=== PATIENT | female | born 1945 | race Caucasian/White ===

== ENCOUNTER → 2016-11-27 | Outpatient (CLI) | payer OTHER ==
[~2016-11-27] MED LIST: CALC600T9 PO; CHOL1CAP57 PO; OMEGCAP2 PO; PRED1SUS3; VNTHFA/IN INH
--- NOTE | 2016-11-27 07:46 | DIAGNOSTIC IMAGING REPORT ---
CHEST 2 VIEWS ROUTINE CLINICAL HISTORY: R06.02 SOB (shortness of breath) on [id number] COMPARISON STUDY: No previous studies for comparison. FINDINGS: The bones soft tissues and hemidiaphragms are normal. The cardiomediastinal silhouette is normal. The lungs are clear. The pulmonary vasculature is normal. IMPRESSION: Negative chest. Electronically signed by: Benja Lund M.D. 11/27/2016 7:44 AM Dictated Date/Time: 11/27/2016 7:43 AM
[2016-11-27 09:38] LABS: BASO % 1.2 %; BASO ABS # 0.07 K/uL (0-0.2); COMPLETE YES; EOS % 7.2 %; HEMATOCRIT 42.8 % (37-47); IG% 0.2 %; LYMPH % 33.9 %; LYMPH ABS # 1.99 K/uL (1.2-3.4); MEAN CELL VOLUME 96.6 fL (80-100); MEAN CORPUSCULAR HEMOGLOBIN 30.5 pg (25-34); MEAN CORPUSCULAR HGB CONC 31.5 g/dl (32-36); MEAN PLATELET VOLUME 9.8 fL (7.4-10.4); MONO % 5.6 %; NEUT % 51.9 %; PLATELET COUNT 224 K/uL (130-400); RED BLOOD COUNT 4.43 M/uL (4.2-5.4); WHITE BLOOD COUNT 5.87 K/uL (4.8-10.8)
[2016-11-27 09:55] LABS: CALCIUM 8.8 mg/dl (8.5-10.1)
[2016-11-27 09:56] LABS: ALT/SGPT 22 U/L (12-78); BLOOD UREA NITROGEN 23 mg/dl (7-18); BUN/CREATININE RATIO 26.4 (10-20); CARBON DIOXIDE 26 mmol/L (21-32); CHLORIDE 108 mmol/L (98-107); CHOLESTEROL 227 mg/dl (0-200); CREATININE 0.87 mg/dl (0.60-1.20); GLUCOSE 82 mg/dl (70-99); SODIUM 143 mmol/L (136-145); TRIGLYCERIDES 54 mg/dl (0-150); VERY LOW DENSITY LIPOPROT CALC 11 mg/dl
[2016-11-27 09:59] LABS: ALB/GLOB RATIO 1.1 (0.9-2); ALKALINE PHOSPHATASE 57 U/L (45-117); AST/SGOT 18 U/L (15-37); CHOLESTEROL/HDL RATIO 2.6; HDL CHOLESTEROL 88 mg/dl; LDL CHOLESTEROL CALCULATED 128 mg/dl
== END | disposition home or self-care (01) ==
LOC: C.RAD 07:16
PROVIDERS: ATTEND Nurse Practitioner Adult Health
DX: R06.02 Shortness of breath (principal); R07.89 Other chest pain

== ENCOUNTER → 2017-05-03 | Day surgery (SDC) | payer OTHER ==
[2017-04-20 13:09] VITALS: Ht 161.3 cm; Wt 59.5 kg
[~2017-05-03] VITALS: Ht 161.3 cm; Wt 59.5 kg
[~2017-05-03] MED LIST changes: +ATROPINE SULFATE 0.1 MG/ML 5ML SYR IV PRN; +EpHEDrine SULFATE INJ 50 MG/ML AMP IV PRN; -PRED1SUS3; +PROPOFOL IV EMULSION 10 MG/ML 20 ML VIAL IV ONE; +SODIUM CHLORIDE 0.9% 500ML 500 ML IV ONE
--- NOTE | 2017-05-03 09:54 | Endo History and Physical ---
History & Physical Date of Service: May 03, 2017. Chief Complaint: screening Referring Physician: BERTRAND Juarez III History of Present Illness 71 yo CF who presents for screening colonoscopy. Past Medical History Asthma Past Surgical History Hx Cardiac Surgery: No Hx Internal Defibrillator: No Hx Pacemaker: No Hx Abdominal Surgery: Yes (D&C) Hx of Implantable Prosthesis: No Hx Post-Op Nausea and Vomiting: No Hx Cancer Surgery: No Hx Thoracic Surgery: No Hx Orthopedic: Yes (LT/RT MENISCUS REPAIR) Hx Urinary Tract Surgery: No Family History Colon CA, Polyp Social History Smoking Status: Never Smoker Hx Substance Use: No Hx Alcohol Use: No Allergies Coded Allergies: NO KNOWN DRUG ALLERGIES (Verified Allergy, Unknown, ., 04/20/17) Nickel (Verified Adverse Reaction, Unknown, SKIN IRRITATION, 04/20/17) Current Medications Reported Home Medications Medications Dose Route/Sig Max Daily Dose Days Date Category Ventolin Hfa (Albuterol) 200 Puffs/95986 Mcg Aers 2-4 Puffs INH Q6H PRN 04/20/17 Reported Fish Oil ([place]-3 Fatty Acids) 1 Cap Cap 2 Cap PO QAM 04/20/17 Reported Calcium + D (Calcium Carbonate-Vitamin D) 1 Tab Tab 1 Tab PO QAM 05/21/15 Reported Vitamin D3 (Cholecalciferol) 1,000 Unit Cap 1,000 Intunit PO QAM 05/21/15 Reported Vital Signs Weight (Kilograms): 59.55 Height (Feet): 5 Height (Inches): 3.5 Date Time Temp Pulse Resp B/P (MAP) Pulse Ox O2 Delivery O2 Flow Rate FiO2 05/03/17 09:51 36.5 69 16 119/64 (82) 98 Room Air Physical Exam General Appearance: WD/WN, no apparent distress Respiratory/Chest: Auscultation: breath sounds normal Cardiovascular: Heart Auscultation: RRR Abdomen: Bowel Sounds: normal Inspection & Palpation: soft, non-distended, no tenderness, guarding & rebound Assessment and Plan Assessment: 71 yo CF who presents for screening colonoscopy. Plan: Proceed with colonoscopy.
--- NOTE | 2017-05-03 10:58 | Discharge Instructions ---
Endoscopy Patient Instructions Date / Procedure(s) Performed May 03, 2017. Colonoscopy Allergy Information Coded Allergies: NO KNOWN DRUG ALLERGIES (Verified Allergy, Unknown, ., 04/20/17) Nickel (Verified Adverse Reaction, Unknown, SKIN IRRITATION, 04/20/17) Discharge Date / Findings May 03, 2017. Internal hemorrhoids Medication Instructions Stopped Medication(s): last dose all meds on Wednesday OK to resume all medications today as prescribed Reported Home Medications Medications Dose Route/Sig Max Daily Dose Days Date Category Ventolin Hfa (Albuterol) 200 Puffs/78052 Mcg Aers 2-4 Puffs INH Q6H PRN 04/20/17 Reported Fish Oil ([place]-3 Fatty Acids) 1 Cap Cap 2 Cap PO QAM 04/20/17 Reported Calcium + D (Calcium Carbonate-Vitamin D) 1 Tab Tab 1 Tab PO QAM 05/21/15 Reported Vitamin D3 (Cholecalciferol) 1,000 Unit Cap 1,000 Intunit PO QAM 05/21/15 Reported Provider Instructions Activity Restrictions - No exercising or heavy lifting for 24 hours. - Do not drink alcohol the day of the procedure. - Do not drive a car or operate machinery until the day after the procedure. - Do not make any important decisions or sign important papers in 24 hours after the procedure. Following Day: - Return to full activity which may include returning to work/school. Diet Start your diet with liquids and light foods (jello, soup, juice, toast). Then eat your usual diet if not nauseated. Treatment For Common After Affects For mild abdominal pain, bloating, or excessive gas: - Rest - Eat lightly - Lie on right side Follow-Up Information Follow-up with BERTRAND Juarez III as scheduled Anesthesia Information What You Should Know You have had a procedure that required some medicine to reduce anxiety and discomfort. This treatment is called moderate sedation. After receiving the treatment, you may be sleepy, but you will be able to breathe on your own. The effects of the treatment may last for several hours. Follow these instructions along with Activity/Diet recommendations noted above: * Do NOT do anything where dizziness or clumsiness would be dangerous. * Rest quietly at home today, then you can be up and about tomorrow. * Have a responsible person stay with you the rest of today. * You may have had an I.V. today. If so, you may take the dressing off later today. Recommendations Call your doctor if: * Trouble breathing * Continuous vomiting for more than 24 hours * Temperature above 101 degrees * Severe abdominal pain or bloating * Pain not relieved by pain medicine ordered * There is increased drainage or redness from any incision * A large amount of rectal bleeding greater than 2-3 tablespoons. (If you had a polyp/s removed or have hemorrhoids, a small amount of blood - from the rectum is to be expected.) * You have any unanswered questions or concerns. IN THE EVENT OF A SERIOUS EMERGENCY, GO TO THE NEAREST EMERGENCY ROOM Your discharge instructions were prepared by provider Kyle Roberts. Patient Instructions Signature Page Corin Lowe Patient (or Guardian) Signature/Date: I have read and understand the instructions given to me by my caregivers. Caregiver/RN/Doctor Signature/Date: The above-named patient and/or guardian has received patient instructions on this date. + Original Patient Signature Page (only) stays with chart. Please make copy for patient.
--- NOTE | 2017-05-03 11:10 | GI REPORT ---
Procedure Date: 05/03/2017 10:35 AM Procedure: Colonoscopy Indications: Family history of colon cancer in a first-degree relative Medicines: Monitored Anesthesia Care Complications: No immediate complications. Estimated Blood Loss: Estimated blood loss: none. Procedure: Pre-Anesthesia Assessment: - Prior to the procedure, a History and Physical was performed, and patient medications and allergies were reviewed. The patient's tolerance of previous anesthesia was also reviewed. The risks and benefits of the procedure and the sedation options and risks were discussed with the patient. All questions were answered, and informed consent was obtained. Prior Anticoagulants: The patient has taken no previous anticoagulant or antiplatelet agents. ASA Grade Assessment: II - A patient with mild systemic disease. After reviewing the risks and benefits, the patient was deemed in satisfactory condition to undergo the procedure. After I obtained informed consent, the scope was passed under direct vision. Throughout the procedure, the patient's blood pressure, pulse, and oxygen saturations were monitored continuously. The scope was introduced through the anus and advanced to the terminal ileum. The colonoscopy was performed without difficulty. The patient tolerated the procedure well. The quality of the bowel preparation was good. The terminal ileum, ileocecal valve, appendiceal orifice, and rectum were photographed. Findings: The perianal and digital rectal examinations were normal. Non-bleeding internal hemorrhoids were found during retroflexion. The hemorrhoids were small. Impression: - Non-bleeding internal hemorrhoids. - No specimens collected. Recommendation: - Resume previous diet. - Continue present medications. - Repeat colonoscopy in 5 years for surveillance. - Return to primary care physician as previously scheduled. Kyle Roberts DO 05/03/2017 11:10:09 AM This report has been signed electronically. Note Initiated On: 05/03/2017 10:35 AM I attest to the content of the Intraoperative Record and orders documented therein, exceptions below
[2017-05-03 11:31] VITALS: BP 112/71; PULSE 55; O2SAT 100
--- NOTE | 2017-05-03 11:39 | Anesthesiology Progress Note ---
Anesthesia Post Op Note Date & Time May 03, 2017 at 11:39 Vital Signs Pain Intensity: 0 Vital Signs Past 12 Hours Date Time Temp Pulse Resp B/P (MAP) Pulse Ox O2 Delivery O2 Flow Rate FiO2 05/03/17 11:31 55 18 112/71 (85) 100 Room Air 05/03/17 11:15 59 18 116/73 (87) 99 Room Air 05/03/17 11:00 61 16 104/65 (78) 96 Room Air 05/03/17 09:51 36.5 69 16 119/64 (82) 98 Room Air Notes Mental Status: alert / awake / arousable, participated in evaluation Pt Amnestic to Procedure: Yes Nausea / Vomiting: adequately controlled Pain: adequately controlled Airway Patency, RR, SpO2: stable & adequate BP & HR: stable & adequate Hydration State: stable & adequate Anesthetic Complications: no major complications apparent
== END | disposition home or self-care (01) ==
LOC: C.GI 09:33
PROVIDERS: ATTEND Internal Medicine
DX: Z12.11 Encounter for screening for malignant neoplasm of colon (principal); K64.8 Other hemorrhoids; Z80.0 Family history of malignant neoplasm of digestive organs

== ENCOUNTER → 2017-09-21 | Outpatient (CLI) | payer OTHER ==
[~2017-09-21] MED LIST changes: -ATROPINE SULFATE 0.1 MG/ML 5ML SYR IV PRN; -EpHEDrine SULFATE INJ 50 MG/ML AMP IV PRN; -PROPOFOL IV EMULSION 10 MG/ML 20 ML VIAL IV ONE; -SODIUM CHLORIDE 0.9% 500ML 500 ML IV ONE
--- NOTE | 2017-09-21 09:38 | DIAGNOSTIC IMAGING REPORT ---
CHEST 2 VIEWS ROUTINE CLINICAL HISTORY: Cough. Shortness of breath. Wheezing. COMPARISON STUDY: Chest radiograph November 27, 2016. FINDINGS: Lung volumes are normal. No pneumothorax or pleural effusion is noted. There is no consolidation or evidence for pulmonary edema. There is suspected mild biapical scarring which is unchanged. IMPRESSION: No acute cardiopulmonary findings. Electronically signed by: Sarabjit Matamoros M.D. 09/21/2017 9:36 AM Dictated Date/Time: 09/21/2017 9:36 AM
== END | disposition home or self-care (01) ==
LOC: C.RAD 09:16
PROVIDERS: ATTEND Nurse Practitioner Family
DX: R05 Cough (principal)

== ENCOUNTER 2023-10-25 10:32 | Observation (INO) ==
--- NOTE | 2023-09-16 10:23 | PAT Medication Instructions ---
Medication Instructions Date of Service September 16, 2023 Home Medications Medication Instructions Recorded albuterol sulfate 90 mcg/actuation 2 - 4 puff inhalation Q6H PRN 05/22/20 aerosol inhaler Shortness Of Breath #6.7 grams ibandronate 150 mg tablet (Boniva) 150 mg PO MONTHLY albuterol sulfate 90 mcg/actuation aerosol inhaler 2 - 4 puff inhalation Q6H PRN Shortness Of Breath ascorbate calcium (vitamin C) 500 mg tablet 500 mg PO DAILY cholecalciferol (vitamin D3) 25 mcg (1,000 unit) capsule 25 mcg PO DAILY omega-3 fatty acids 1,000 mg capsule (Fish Oil Concentrate) 1,000 mg PO BID levothyroxine 50 mcg tablet (Synthroid) 50 mcg PO QAM aspirin 81 mg tablet,delayed release 81 mg PO QAM Continue as directed ibandronate 150 mg tablet (Boniva) 150 mg PO MONTHLY (just do not take on morning of surgery) STOP taking 2 weeks before surgery omega-3 fatty acids 1,000 mg capsule (Fish Oil Concentrate) 1,000 mg PO BID DO NOT take the morning of surgery ascorbate calcium (vitamin C) 500 mg tablet 500 mg PO DAILY cholecalciferol (vitamin D3) 25 mcg (1,000 unit) capsule 25 mcg PO DAILY Take morning of surgery With a small sip of water, OTHERWISE NOTHING TO EAT OR DRINK AFTER MIDNIGHT: albuterol sulfate 90 mcg/actuation aerosol inhaler 2 - 4 puff inhalation Q6H PRN Shortness Of Breath .inhlaer levothyroxine 50 mcg tablet (Synthroid) 50 mcg PO QAM aspirin 81 mg tablet,delayed release 81 mg PO QAM (unless surgeon directed otherwise) Take evening before surgery albuterol sulfate 90 mcg/actuation aerosol inhaler 2 - 4 puff inhalation Q6H PRN Shortness Of Breath (if needed) Other Notes If you have any questions please call us at [phone] or [phone] or [phone] or [phone]
--- NOTE | 2023-09-20 08:44 | Anesthesiology Consultation ---
Date of Service September 20, 2023 Assessment & Plan (1) Encounter for pre-operative examination: Chart Review Chart Review: Acceptable Risk for Surgery and Patient seen in Pre Admission Testing - Patient is NOT an ideal OPJ candidate Per [facility] appt on 09/20/23, no recent illness/disease exposures, illness related symptoms, or recent illness/disease positive tests. Will leave to surgeon's discretion if preop Covid testing needed Patient seen by cardio 07/20/23= Patient seen for follow up for dizziness. No shaan syncope. Had ECHO and 2 week monitor. Had brief episodes of SVT. SVT did not correlate with symptoms. Patient still gets occasional dizziness but no presyncope or syncope. Cardiac workup is essentially unremarkable except for brief episodes of SVT which in this age group may be related to PAF. Would not treat the PAF but did recommend patient to start aspirin 81 mg. At this point would not recommend any additional treatment for dizziness unless it becomes prolonged, frequent or she starts to have syncopal episodes. Does not need cholesterol treated at this time. Very high HDL and very good LDL. Follow-up in 3 months. (Per patient at [facility] appt 09/20/23- dizziness almost completely resolved) Right Distal Radius ORIF 06/01/19= Done under [facility] with LMA #4. Atraumatic LMA attempt x 1 History Surgery Operation Date: 10/25/23 09:00 Proposed Procedures p Right Total Knee Arthroplasty - Bird Plunkett, Height/Weight Height: 5 ft 2.5 in Weight: 61.6 kg Allergies Allergy/AdvReac Type Severity Reaction Status Date / Time No Known Drug Allergies Allergy Unknown . Verified 09/03/23 13:50 nickel AdvReac Mild SKIN Verified 09/03/23 13:50 IRRITATION Medications Home Medications Medication Instructions Recorded Confirmed Last Taken ibandronate 150 mg tablet (Boniva) 150 mg PO MONTHLY 05/31/19 09/03/23 01/11/23 albuterol sulfate 90 mcg/actuation 2 - 4 puff inhalation Q6H PRN 05/22/20 09/03/23 1 Week Ago aerosol inhaler Shortness Of Breath #6.7 grams ~01/12/23 ascorbate calcium (vitamin C) 500 500 mg PO DAILY 06/20/20 09/03/23 01/09/23 mg tablet cholecalciferol (vitamin D3) 25 25 mcg PO DAILY 06/20/20 09/03/23 01/09/23 mcg (1,000 unit) capsule omega-3 fatty acids 1,000 mg 1,000 mg PO BID 06/20/20 09/03/23 01/09/23 capsule (Fish Oil Concentrate) levothyroxine 50 mcg tablet 50 mcg PO QAM 01/07/23 09/03/23 01/19/23 (Synthroid) 0100 aspirin 81 mg tablet,delayed 81 mg PO QAM 09/03/23 09/03/23 Unknown release Past Medical History Medical History Arthritis Chronic back pain History of COVID-02 Aug 2022 > not hospitalized > resolved Hypothyroidism Itchy scalp Stable - possibly due to thyroid disease Migraine HX Osteoporosis Sensorineural hearing loss (SNHL) of both ears mild to mod-sev HF SNHL AU Bilateral hearing aids SOB (shortness of breath) WITH COLD WEATHER-PRN INHALER SHE USES RARELY Exercise / Class Metabolic Activity II 4-5 Yardwork/Stairs/Walk up hill (one flight of stairs - no chest pain, mild SOB ) Past Family History Family History Mother Family hx of colon cancer Colorectal cancer Father Prostate cancer Other Osteoporosis Denies family history of Ovarian cancer Myocardial infarction Breast cancer Past Surgical History Surgical History History of anesthesia reaction LOW BP AFTER KNEE SURGERY-[facility]-WAS DISCHARGED History of arthroscopic knee surgery x 2 History of colonoscopy History of hysteroscopy D+C Perforated nasal septum with surgical correction S/P wrist surgery Open Reduction and Internal Fixation of Right Wrist 3-Part Intra-articular Distal Radius Fracture (42124) - Kevin Bowie M.D. [place] teeth extracted Past Anesthesia History No Hx of Anesthesia Complications (with exception to hypotension with most recent knee scope (remote hx) - no issues with previous surgeries ) and No Family Hx of Anesthesia Complications History of PONV No Hx of PONV and No Hx of Motion Sickness Social History Smoking Status: Never smoker Do You Dip or Chew Tobacco: No Hx Alcohol Use: Yes Alcohol type: wine alcohol intake frequency: a few times a month Hx Substance Use: No substance use type: does not use Review of Systems - Chronic PHIPPS- mild and stable- feels due to deconditioning - Rare reflux - diet dependent Patient denies chest pain, shortness of breath at rest, cough, wheezing, palpitations. No hx of seizures, stroke, WI, apnea/snoring. No hx of blood clots or blood transfusions Physical Exam Vital Signs VITALS BP 118/74 P 62 TEMP 97.7 SP02 98% RESP 16 Constitutional no acute distress ENMT Mouth: no TMJ clicking Thyromental Distance: > or= 3.5 Finger Breadths (3.5) Mallampati Class: III Caps to molars Neck neck extension not limited Respiratory normal respiratory effort; no respiratory distress Auscultation: lungs clear to auscultation bilaterally; no wheezes Cardiovascular Rate/Rhythm: regular rate and regular rhythm Heart Sounds: no murmur Vessels: no carotid bruit Musculoskeletal Spine: no pain with cervical ROM Extremities: extremities normal to inspection Psychiatric Orientation: alert Lab Results Anesthesia Preop Results Results Anesthesia Widget: WBC 6.25 K/ul (4.8-10.8) 09/20/23 Hgb 13.7 g/dl (12.0-16.0) 09/20/23 Hct 40.4 % (37.0-47.0) 09/20/23 Plt 238 K/uL (130-400) 09/20/23 Na 140 mmol/L (136-145) 09/20/23 K 4.4 mmol/L (3.5-5.1) 09/20/23 Cl 106 mmol/L (98-107) 09/20/23 CO2 28 mmol/L (21-32) 09/20/23 BUN 19 mg/dl (6-23) 09/20/23 Creat 0.74 mg/dl (0.6-1.2) 09/20/23 Glucose Level 75 mg/dl (70-99(Fasting)) 09/20/23 PT 10.1 Seconds (9.0-12.0) 09/20/23 PTT 27 Seconds (21-31) 09/20/23 INR 0.9 (0.9-1.1) 09/20/23 Blood Type O Negative 09/20/23 Antibody Screen NEGATIVE 09/20/23 Testing Electrocardiogram Date: 06/28/23 Findings: + SB @ (57bpm ) Otherwise normal EKG per cardio Chest X-Ray Date: 09/20/23 Findings: + NAD Echocardiogram Date: 07/06/23 EF: 60-64% LV Function: normal RWMA: + none Other Findings: no LVH or no diastolic dysfunction Mild TR No evident of pulm HTN
--- NOTE | 2023-10-21 13:21 | History & Physical Report ---
Date of Service October 21, 2023 Assessment & Plan (1) Osteoarthritis of right knee: We will proceed with a right total knee arthroplasty. Postoperatively she will be started on aspirin for DVT prophylaxis and kept overnight in the hospital for postop medical management. She plans to use fit for play upon discharge. History of Present Illness Chief Complaint: Osteoarthritis of the right knee. Primary Care Provider: Kathya Rivers DO Corin is a pleasant 77-year-old female who has been dealing with chronic increasing right knee pain. She did have an injection about 8 months ago. She then went to [facility]. She had a fall. She was having some increased pain in the knee. She had x-rays of the knee, which showed advanced arthritis. She then had another injection to the knee. The second injection did not help much. Unfortunately, she is really struggling with the knee. After failing conservative treatment, she has elected to proceed with a right total knee arthroplasty. Allergies Allergy/AdvReac Type Severity Reaction Status Date / Time No Known Drug Allergies Allergy Unknown . Verified 09/03/23 13:50 nickel AdvReac Mild SKIN Verified 09/03/23 13:50 IRRITATION Home Medications Medication Instructions Recorded Confirmed Type ibandronate 150 mg tablet (Boniva) 150 mg PO MONTHLY 05/31/19 09/03/23 History albuterol sulfate 90 mcg/actuation 2 - 4 puff inhalation Q6H PRN 05/22/20 09/03/23 Rx aerosol inhaler Shortness Of Breath #6.7 grams ascorbate calcium (vitamin C) 500 500 mg PO DAILY 06/20/20 09/03/23 History mg tablet cholecalciferol (vitamin D3) 25 25 mcg PO DAILY 06/20/20 09/03/23 History mcg (1,000 unit) capsule omega-3 fatty acids 1,000 mg 1,000 mg PO BID 06/20/20 09/03/23 History capsule (Fish Oil Concentrate) levothyroxine 50 mcg tablet 50 mcg PO QAM 01/07/23 09/03/23 History (Synthroid) aspirin 81 mg tablet,delayed 81 mg PO QAM 09/03/23 09/03/23 History release Past Med/Surg History Medical History History of COVID-02 Aug 2022 > not hospitalized > resolved Itchy scalp Stable - possibly due to thyroid disease Sensorineural hearing loss (SNHL) of both ears mild to mod-sev HF SNHL AU Bilateral hearing aids Chronic back pain Arthritis Hypothyroidism Migraine HX SOB (shortness of breath) WITH COLD WEATHER-PRN INHALER SHE USES RARELY Osteoporosis Surgical History Perforated nasal septum with surgical correction S/P wrist surgery Open Reduction and Internal Fixation of Right Wrist 3-Part Intra-articular Distal Radius Fracture (46082) - Kevin Bowie M.D. History of anesthesia reaction LOW BP AFTER KNEE SURGERY-[facility] / [facility]-WAS DISCHARGED History of colonoscopy [place] teeth extracted History of arthroscopic knee surgery x 2 History of hysteroscopy D+C Family History Mother Family hx of colon cancer Colorectal cancer Father Prostate cancer Other Osteoporosis Denies family history of Ovarian cancer Myocardial infarction Breast cancer Social History Smoking Status: Never smoker Second Hand Exposure: Yes (as child); Do You Dip or Chew Tobacco: No; Tobacco Cessation Education Requested by Patient: No Hx Alcohol Use: Yes Alcohol type: wine Alcohol Intake Frequency: Monthly or Less Hx Substance Use: No Preferred Language: Malay Communication Ability: Effective Visual Impairment: No Limitations Hearing Ability: Hard of Hearing Disability Manager Required: No Beliefs That Will Affect Care: None marital status: Current Living Situation: Spouse current occupational status: retired Other Information That Helps Us Care for You: No Feels Safe at Home: Yes Safety Concerns: Feels Safe At This Time Childhood Exposure to Second-Hand Smoke: Yes Diet: regular Dental Care, Regularly: Yes Physical Activity Frequency: 3-4 Times per Week Seatbelt Use: always Sunscreen Use: Yes Assistive Devices: Glasses and Hearing Aid - Bilateral Review of Systems All systems reviewed & are unremarkable except as noted in HPI & below. Physical Exam On physical examination of the right knee, she has a slight varus deformity. She has tenderness palpation of the distal medial femoral condyle and over the medial joint line.. Constitutional WD/WN, vitals as above Eyes PERRL, conjunctivae normal, anicteric sclerae ENMT external ear and nose normal, oropharynx normal Neck trachea midline, no thyromegaly Respiratory normal respiratory effort Cardiovascular RRR, no murmur, no edema Gastrointestinal (Abdomen) normal bowel sounds, soft, nontender, no hepatosplenomegaly Psychiatric A+Ox3, euthymic affect Results & Data Results & Data Laboratory Results . Diagnostic Findings X-rays of the right knee show advanced osteoarthritis with joint space narrowing, osteophyte formation, and kyce-xt-xcec articulation. PG Care Time/CCT Total # of Minutes Spent Total Time Spent with Patient: Total time spent is greater than 50% in coordination of care (as documented) at patient's floor/unit and/or counseling patient: Coding Level of Care Code None Diagnoses Osteoarthritis of right knee M17.11
[~2023-10-25 10:32] MED LIST changes: +BUPIVACAINE 0.5 % 5 MG/1 ML PF 10ML VIAL ONE; -CALC600T9 PO; -CHOL1CAP57 PO; +MIDAZOLAM HCL 1 MG/ML 2ML VIAL ONE; -OMEGCAP2 PO; +ROPIVACAINE 0.5% 5 MG/ML 30 ML VIAL ONE; -VNTHFA/IN INH; +fentaNYL citrate PF 100 MCG/2 ML VIAL ONE
--- NOTE | 2023-10-25 11:01 | History & Physical Bridge Note ---
Date of Service October 25, 2023 History & Physical Bridge Note I have examined the patient, reviewed the History & Physical and in the interval since the performance of the History & Physical I have noted the following changes of clinical significance: no changes noted
[2023-10-25] MEDS: dexAMETHasone**PF** 10 MG/ML VIAL IV SCH (11:06)
[2023-10-25] MEDS: ACETAMINOPHEN 500 MG TAB PO SCH ×2 (11:06→15:41)
[2023-10-25] MEDS: FAMOTIDINE 20 MG TAB PO SCH (11:06)
[2023-10-25] MEDS: GABAPENTIN 300 MG CAP PO SCH (11:06)
[2023-10-25] MEDS: LR 60ML/HR IV SCH (11:11)
[2023-10-25] MEDS: LR 500ML BOLUS, THEN 15ML/HR IV SCH (11:11)
[2023-10-25] MEDS: TRANEXAMIC ACID 1,000 MG **IV Pre-op IV SCH (11:42)
[2023-10-25] MEDS: ceFAZolin 2000MG 2,000 MG/15 ML SYR IV SCH ×2 (11:55→19:51)
[2023-10-25] MEDS ORDERED: PROPOFOL IV EMULSION 10 MG/ML 20 ML VIAL IV ONE (12:05)
[2023-10-25] MEDS: ROPIV 0.5% 246mg, Ketorolac 30mg, EPINEPHrine 0.5mg in NSS INFIL SCH (12:31)
[2023-10-25] MEDS: ORTHO JOINT ANESTHETIC ONE (12:31)
[2023-10-25] MEDS ORDERED: ONDANSETRON INJ 2 MG/ML 2 ML VIAL ONE (12:49)
[2023-10-25] MEDS: TRANEXAMIC ACID 1,000 MG **IV Intra-op IV SCH (12:49)
--- NOTE | 2023-10-25 13:00 | Operative Report ---
PG Post Operative Report Pre & Post Diagnosis Operation Date: 10/25/23 12:00 Pre-Op Diagnosis: Right Knee Degenerative Joint Disease Post-Op Diagnosis: Right Knee Degenerative Joint Disease I identified the patient and participated in the time-out.: Yes Procedure Operation Date: 10/25/23 12:00 Actual Procedures p Right Total Knee Arthroplasty(Right) - Bird Plunkett DO Surgeon Bird Plunkett DO Transition Of Care Specialist Bird Hernandez PA-C Estimated Blood Loss 30 Findings Consistent with Post-Op Diagnosis Specimens Right femoral and tibial bone Description of Procedure Implants used: I used a Avani Persona total knee arthroplasty system with a size 6 narrow femur, D tibia, 31 oval patella, and a size 13 medial congruent polyethylene bearing. All components were cemented in place with Biomet cement. Corin arrived [facility] for the above procedure. She was seen in the preoperative holding area and the operative extremity was identified and signed. She was given a preoperative antibiotic, TXA, a spinal anesthetic and an adductor nerve block. She was taken back to the operating room and laid on the table in supine position. She was given basic sedation. The operative knee was then prepped and draped in sterile fashion. A timeout was done, and the patient and the operative extremity was properly identified. A midline incision was made directly over the patella. Dissection was taken down to the extensor mechanism. A midvastus arthrotomy was used. The medial retinaculum was released and the fat pad was mostly excised. The knee was flexed and the ACL, PCL, and meniscus were removed. A drill was sent down the center of the femoral canal followed by an intramedullary blanche. Off that blanche a distal femoral cutting block was placed. 9 mm was resected off the distal femur at 5 of valgus. A posterior referencing AP sizing guide was then placed on the distal femur. The femur measured to be a size 6. 2 drill holes were placed in 3 of external rotation. A 4-in-1 cutting block was then impacted into place. Anterior, posterior, and chamfer cuts were then made. The proximal tibia was then exposed. An external tibial alignment guide was placed. A tibial cut guide was then anchored in place and the proximal tibia was then resected. The posterior aspect of the knee was then opened up and any additional meniscus fragments and osteophytes were removed. The tibia measured to be a size F. The tibial plate was then placed in the appropriate rotation and the tibia was drilled and punched. Trial components were then placed. I used a size 13 medial congruent polyethylene insert. The knee was brought through a full range of motion and felt to be stable. The peg holes for the femoral component were then drilled. The patella was then everted and 9 mm was resected off the posterior aspect of the patella. The patella measured to be a size 31 oval. 3 peg holes were then drilled. A trial patella was placed. The knee was once again brought through a full range of motion and felt to be stable. Trial components were then removed. The surrounding soft tissues were injected with 100 cc of an orthopedic pain control cocktail. All components were then cemented into place with Biomet cement. The final polyethylene insert was then snapped into place. Once cement was dry the tourniquet was deflated. Hemostasis was obtained. A dilute betadyne lavage was then done for 3 minutes. The joint was then irrigated with normal saline solution. The midvastus arthr otomy was then closed with #1 Vicryl suture. The skin was closed with 2-0 Vicryl, 3-0V lock suture, and penny. A soft compressive dressing was placed. She was then transferred to a hospital bed and taken to the postanesthesia care unit in stable condition. She tolerated the procedure well. Bird Hernandez PA-C, was present for the entire procedure. He was critical for patient positioning, prepping, draping, retraction exposure, wound closure and application of sterile dressing. I attest to the content of the Intraoperative Record and any orders documented therein. Any exceptions are noted below.
--- NOTE | 2023-10-25 13:36 | XRay Report ---
XR knee RT 1 or 2V routine HISTORY: 78 years-old Female Surgical Post Op right knee arthroplasty COMPARISON: 08/25/2023 TECHNIQUE: 2 views the right knee FINDINGS: Total joint arthroplasty with patellar resurfacing. Anterior midline skin penny with expected posto perative soft tissue swelling and deep tissue air. No acute fracture, dislocation or unexpected opaqu e foreign body. IMPRESSION: Total joint arthroplasty with expected postoperative changes. ACT 112: Negative or not required by law. The above report was generated using voice recognition software. It may contain grammatical, syntax o r spelling errors. Electronically signed by: German Carias M.D. 10/25/2023 1:34 PM
[2023-10-25] MEDS ORDERED: oxyCODONE HCL IR 5 MG TAB (IMMEDIATE RELEASE) PO PRN (15:06)
[2023-10-25] MEDS ORDERED: METOCLOPRAMIDE HCL INJ 5 MG/ML 2 ML VIAL IV PRN (15:06)
[2023-10-25] MEDS ORDERED: ONDANSETRON INJ 2 MG/ML 2 ML VIAL IV PRN (15:06)
[2023-10-25] MEDS ORDERED: NALOXONE HCL 0.4 MG/1 ML VIAL/CARP IV PRN (15:06)
[2023-10-25] MEDS ORDERED: bisacodyL 10 MG SUPP PR PRN (15:06)
[2023-10-25] MEDS ORDERED: HYDROmorphone INJ 0.5 MG/0.5 ML SYR IV PRN (15:06)
[2023-10-25] MEDS ORDERED: MAGNESIUM HYDROXIDE SUSP 30 ML UDC PO PRN (15:06)
[2023-10-25] MEDS: SODIUM CHLORIDE 0.9% 1,000 ML IV SCH (15:17)
--- OUTSIDE RECORDS SUMMARY | 2023-10-25 15:24 | External Medical Summary | Summary of Care ---
Author Name Unknown Organization [facility] Address [address] [place] [address] Phone [phone] Care Team Providers Care Paper Machine Operator Name Role Phone FitoKathya alvarado Susan MODI Primary Care Provider Reason for Visit * Reason Comments Follow Up Encounter Details Date Type Department Care Team (Late st Contact Info) Description 10/19/2023 1:30 PM EDT Office Visit Cardiology, [facility] [address] [place] [address] Brent Pereira DO [address] [facility] [place] [address] Dizziness*; Paroxysmal atrial fibrillation (HCC) Allergies Active Allergy Reactions Criticality Noted Date Comments Nickel 04/30/2021 documented as of this encounter (statuses as of 10/19/2023) Medications Medication Sig Dispensed Refills Start Date End Date Status Vitamin D 50 MCG (1999) Oral Tablet Take by mouth 2,000 Units daily . 0 Active Calcium 600 MG Oral Tablet Take by mouth 500 mg daily . 0 Active [place]mont-3 Fatty Acids (FISH OIL) 1200 MG CAPS Take by mouth. 2 cap daily 0 Active Biotin 2500 MCG Oral Capsule Take by mouth. 0 09/29/2022 Active Levothyroxine Sodium 50 MCG Oral Tablet (Levoxyl)Indications :Acquired hypothyroidism Take 1 Tablet by mouth in the morning. 1 daily. 90 Tablet 3 01/29/2023 Active Albuterol Sulfate HFA 108 (90 Base) MCG/ACT Inhalation Aerosol SolutionIndications: Wheeze Inhale 2 Puffs by mouth every 6 hours as needed for Shortness of Breath or Wheezing (inhale 2 puffs by mouth every 6 hours as needed). 18 g 3 02/03/2023 Active Additional Information Patient not taking.Reported on 10/19/2023 Aspirin 81 MG Oral Tablet Delayed Release Take 1 Tablet by mouth in the morning. 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 SUMMARY: Goal: Establish test characteristics (sensitivity, specificity, PPV, NPV) of a circulating tumor DNA (ctDNA)-based test for cancer. Hypothesis: Circulating tumor DNA (ctDNA) and elevated protein biomarkers (together, the marker panel) can be detected in asymptomatic individuals with early cancer. Specific Aim 1: Determine the prevalence of a positive marker panel test in a prospective clinical cohort of 10,000 asymptomatic women ages 65 to 75 years. Specific Aim 2: Determine the sensitivity, specificity, positive predictive value (PPV) and negative predictive value (NPV) of a marker panel test to identify histologically proven cancers that develop within 5-years of the marker panel evaluation. CONTACTS: During normal business hours, contact study staff at ; after hours Wash Mill Operator via the [facility] carton gluing machine operator . Please contact study team before resolving/deleting from patients problem list. Study phone number: [phone]. Diagnosis changed due to Research Module. Go to Snapshot for study details. Encounter for examination fo r normal comparison and control in clinical research program 09/09/2017 02/12/2022 Overview: DO NOT DELETE - Davia DETECT Study: Project # [id number], Wash Mill Operator: Bayron Mcgee, MS, MPH. SUMMARY: Goal: Establish test characteristics (sensitivity, specificity, PPV, NPV) of a circulating tumor DNA (ctDNA)-based test for cancer. - Hypothesis: Circulating tumor DNA (ctDNA) and elevated protein biomarkers (together, the marker panel) can be detected in asymptomatic individuals with early cancer. - Specific Aim 1: Determine the prevalence of a positive marker panel test in a prospective clinical cohort of 10,000 asymptomatic women ages 65 to 75 years. - Specific Aim 2: Determine the sensitivity, specificity, positive predictive value (PPV) and negative predictive value (NPV) of a marker panel test to identify histologically proven cancers that develop within 5-years of the marker panel evaluation. - CONTACTS: During normal business hours, contact study staff at ; after hours Wash Mill Operator via the [facility] carton gluing machine operator . - Please contact study team before resolving/deleting from patients problem list. Study phone number: [phone]. Diagnosis changed due to Research Module. Go to Snapshot for study details. documented as of this encounter (statuses as of 10/19/2023) Immunizations Name Administration Dates Next Due COVID-19 mRNA, LNP-s, No Pre serve, 2-Dose Series (Moderna) 08/14/2020,07/17/2020 COVID-19, mRNA, LNP-s, PF, B ooster, 100mcg/0.5mg (Moderna) 01/31/2021 Covid-19, Mrna, Lnp-s, Pf, B ivalent, 30 Mcg, IM, 12 yrs and above (Pfizer) 03/11/2022 Pneumococcal Conjugate Vacc, 13 Valent (Prevnar) 03/06/2016 Pneumococcal Polysaccharide PPV23 (Pneumovax) 02/28/2018 Seasonal Influenza, Quadriva lent Hd, 65+ Yrs 02/03/2023,02/26/2022,03/19/2020 TDAP (age 10 and older)(Boostrix) 03/06/2016 Zoster Vaccine Recombinant (Shingrix) 04/29/2020 ,02/27/2020 documented as of this encounter Social History Tobacco Use Types Packs/Day Years Used Date Smoking Tobacco: Never Passive Smoke Exposure: Past Smokeless Tobacco: Never Alcohol Use Standard Drinks/Week Comments Yes 0 (1 standard drink = 0.6 oz pur e alcohol) 1-2 times a week PHQ-2 Answer Date Recorded PHQ Adult Total Score 2 06/28/2023 Hunger Vital Sign Answer Date Recorded Within the past 12 months, y ou worried that your food would run out before you got the money to buy more. Never true 06/28/19 24 Within the past 12 months, t he food you bought just didn't last and you didn't have money to get more. Never true 06/28/2023 Sex and Gender Information Value Date Recorded Sex Assigned at Female 11/17/2021 9:01 PM EDT Gender Identity Female 11/17/2021 9:01 PM EDT Sexual Orientation Straight 11/17/2021 9: 01 PM EDT Job Start Date Occupation Industry Not on file Not on file Not on file documented as of this encounter Last Filed Vital Signs Vital Sign Reading Time Taken Comments Blood Pressure 122/74 10/19/2023 1:17 PM EDT Pulse 84 10/19/2023 1:17 PM EDT Temperature - - Respiratory Rate 16 10/19/2023 1:17 PM EDT Oxygen Saturation - - Inhaled Oxygen Concentration - - Weight 61.2 kg (135 lb) 10/19/2023 1:17 PM EDT Height - - Body Mass Index 24.3 09/27/2023 8:15 AM EDT documented in this encounter Progress Notes * Brent Pereira, DO - 10/19/2023 1:49 PM EDT Cardiology Outpatient Follow-up Corin Lowe is a 78 year old female who is seen for follow-up of dizziness. 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 She had a workup including echocardiogram that showed normal LV systolic and diastolic function and no significant valvular pathology. She had a 2 week monitor that revealed no significant arrhythmias other than brief episodes of asymptomatic SVT. I started her on aspirin 81 mg daily. Overtime her dizziness has resolved and she returns today with no complaints. She denies syncope or presyncope. No lightheadedness. No activity related chest pain or shortness of breath. The patient is going to have a total knee replacement which is scheduled for next week. Past Medical History: Diagnosis Date Acquired hypothyroidism Senile osteoporosis Patient Active Problem List Diagnosis Code Dermatitis L30.9 Senile osteoporosis M81.0 Hypothyroidism E03.9 Aline's thyroiditis E06.3 Past Surgical History: Procedure Laterality Date DENTAL SURGERY PROCEDURE NEC INSERTION OF LENS PROSTHESIS Bilateral KNEE ARTHROSCOPY/SURGERY bilateral torn meniscus Family History Problem Relation Age of Onset Osteoporosis Mother blateral hip fractures Heart disease Father Emphysema Father Other (Other) Son testicular cancer Social History Tobacco Use Smoking status: Never Passive exposure: Past Smokeless tobacco: Never Substance Use Topics Alcohol use: Yes Comment: 1-2 times a week Drug use: No Review of patient's allergies indicates: Allergen Reactions Nickel Current Outpatient Medications Medication Sig Dispense Refill Levothyroxine Sodium 50 MCG Oral Tablet (Levoxyl) Take 1 Tablet by mouth in the morning. 1 daily. 90 Tablet 3 Aspirin 81 MG Oral Tablet Delayed Release Take 1 Tablet by mouth in the morning. 100 Tablet 11 Vitamin D 50 MCG (2000 UT) Oral Tablet Take by mouth 2,000 Units daily . (Patient not taking: Reported on 10/19/2023) Calcium 600 MG Oral Tablet Take by mouth 500 mg daily . (Patient not taking: Reported on 10/19/2023) Longmont-3 Fatty Acids (FISH OIL) 1200 MG CAPS Take by mouth. 2 cap daily (Patient not taking: Reported on 10/19/2023) Biotin 2500 MCG Oral Capsule Take by mouth. (Patient not taking: Reported on 10/19/2023) Albuterol Sulfate HFA 108 (90 Base) MCG/ACT Inhalation Aerosol Solution Inhale 2 Puffs by mouth every 6 hours as needed for Shortness of Breath or Wheezing (inhale 2 puffs by mouth every 6 hours as needed). (Patient not taking: Reported on 10/19/2023) 18 g 3 No current facility-administered medications for this visit. ROS: Review of Systems: See HPI for pertinent positives. All other review of systems is negative. PHYSICAL EXAMINATION BP 122/74 | Pulse 84 | Resp 16 | Wt 61.2 kg (135 lb) | BMI 24.30 kg/m | BSA 1.64 m Body mass index is 24.3 kg/m. General: no acute distress and stated age Head: normocephalic, no masses, lesions, tenderness or abnormalities Eyes: conjunctiva are pink and non-injected, sclera clear Neck: supple, no adenopathy, no bruits, normal jugular venous pulse, no hepatojugular reflux Chest: normal shape and normal respiratory effort Lungs: clear to auscultation and percussion Cardiac Exam: - regular rate & rhythm, no murmurs gallops or rubs - normal S1, normal S2 Pulses: 2(+) throughout Abdomen: abdomen soft, non-tender, no abnormal masses and no hepatosplenomegaly Musculoskeletal: no gait disturbance, no joint inflammation, no deforming arthritis Extremities: no edema and no cyanosis Neuro: grossly normal exam Laboratory Data Review: No recent data Impression: This is an 78-year-old female with brief episodes of PSVT, likely PAF and is currently on aspirin only. She has no other significant cardiac history. Plan: Utilizing the geriatric risk assessment tool, the patient's calculated risk for knee replacement is0.2%. She is currently medically stable and optimally medically managed and should proceed to surgery. If necessary, during her hospital stay we would be happy to follow along. Otherwise, we will seethe patient in follow-up in 6 months. This chart was completed in part utilizing lifeIO Speech Voice Recognition Software. Grammatical errors, random word insertions, prounoun errors, and incomplete sentences are an occasional consequence of this system due to software limitations, ambient noise, and hardware issues. Any formal questions or concerns about the content, text, or information contained within the body of this dictation should be directly addressed to the provider for clarification. I spent a total of 30-39 minutes (exact time 38 mins) on the date of service in preparation, delivery, and documentation of the care provided to Corin Lowe excluding any time spent in the performance of separately billed services. Brent Pereira DO Cardiology, [address] [address] 10/19/2023 documented in this encounter Nursing Notes * Gerald Hernandez RN - 10/19/2023 1:14 PM EDT Examination Room: room 17 Name: Corin Lowe Date of : (1945). Reason for Visit: for follow up Interim Hospitalization(s): denies Problems/Concerns: up coming Right knee replacement at [facility] on 10/25/[address] Plunkett Chest Pain/SOB: denies [facility] Discussed: Yes [facility] is a way you can talk to your provider online through e-mail. Would you like to sign up? I can activate it for you? ALREADY ACTIVE Patient was instructed to not get up on the exam table until directed and assisted by their provider; patient is to remain seated in the chair/ wheelchair/ exam table for fall prevention and safety reasons. Patient is aware to have assistance to step down off exam table with personnel. Patient voiced full comprehension of instructions. m documented in this encounter Plan of Treatment Upcoming Encounters Date Type Department Care Team (Late st Contact Info) Description 12/27/2023 8:40 AM EDT Office Visit Family Practice [address] [facility] [address] [place] [address] Kathya Rivers DO [address] [place] [address] 01/17/2024 8:30 AM EDT Office Visit Rheumatology [place] [address] [facility] [address] Omega Escalante CRNP [facility] [facility] [place] [place] [address] 01/25/2024 10:00 AM EDT Nurse Only [address]illary [address] [address] [address], Nurse [address] Wellness [address] [address] Health Maintenance Due Date Last Done Comments *BISPHONATE OR OTHER ACCEPTABLE MEDICATION NEEDED FOR OSTEOPOROSIS (REFER TO SMARTSET #1146) 07/01/2023 Depression Screening 06/28/2024 06/28/2023 TSH 06/28/2024 06/28/2023, 12/13, 07/02/2022, Additional history exists DXA Scan 01/18/2025 01/18/2023, 12/2022, 11/28/2020 DTaP,Tdap,and Td Vaccines (2 - Td or Tdap) 03/06/2026 03/06/2016 Pneumococcal Vaccine: 65+ Years Completed 02/28/2018, 03/06/2016 Zoster Vaccines Completed 04/29/2020, 02/27/2020 VITAMIN D LEVEL ONCE IN A LIFETIME-USE SMARTSET# [id number] Completed 01/07/2023, 11/25/2021 Influenza Vaccine (FLU shot) Completed , 02/26/2022, 03/20/2020, Additional history exists COVID-19 Vaccine Completed 04/26/2023, , 01/31/2021, Additional history exists GARDASIL-HPV IMMUNIZATION SERIES Aged Out No longer eligible based on patient's age to complete this topic Hepatitis B Aged Out No longer eligi ble based on patient's age to complete this topic MENINGOCOCCAL (MENACTRA/MENVEO) Aged Out No longer eligible based on patient's age to complete this topic documented as of this encounter Medical Devices Not on filedocumented as of this encounter Visit Diagnoses Diagnosis Dizziness- Primary Dizziness and giddiness Paroxysmal atrial fibrillation (HCC) Atrial fibrillation documented in this encounter Care Teams Paper Machine Operator Relationship Specialty Start Date End Date Kathya Rivers DO [address] [place] [address] PCP - General Family Medicine 12/31/21 documented as of this encounter"
--- NOTE | 2023-10-25 15:39 | Anesthesiology Progress Note ---
Date of Service October 25, 2023 Anesthesia Post Procedure Vital Signs Vital Signs: Temp Pulse Pulse Resp BP Pulse Ox O2 Del Method 10/25/23 15:36 36.4 C L 60 16 114/64 99 Room Air 10/25/23 15:06 36.2 C L 62 16 104/65 97 Room Air 10/25/23 14:45 62 18 107/60 95 Room Air 10/25/23 14:35 36.4 C L 56 L 14 104/60 95 Room Air 10/25/23 14:25 62 12 101/57 L 97 Room Air 10/25/23 14:15 60 14 100/62 94 Room Air 10/25/23 14:05 61 12 101/61 95 Room Air 10/25/23 13:55 60 12 101/62 95 Room Air 10/25/23 13:45 59 L 16 100/59 L 95 Room Air 10/25/23 13:35 60 12 99/59 L 95 Room Air 10/25/23 13:25 63 16 95/57 L 96 Room Air 10/25/23 13:15 36.6 C 65 14 100/57 L 98 Oxymask 10/25/23 10:55 36.4 C L 73 16 146/84 H 96 Room Air O2 Flow Rate 10/25/23 15:36 10/25/23 15:06 10/25/23 14:45 10/25/23 14:35 10/25/23 14:25 10/25/23 14:15 10/25/23 14:05 10/25/23 13:55 10/25/23 13:45 10/25/23 13:35 10/25/23 13:25 10/25/23 13:15 3 10/25/23 10:55 Pain Intensity Right Knee: Pain Intensity: 5 Transfer of Care Handoff Completed per policy Notes Mental Status: alert / awake / arousable and participated in evaluation Patient Amnestic to Procedure: Yes Nausea / Vomiting: adequately controlled Pain: adequately controlled Airway Patency, RR, SpO2: stable & adequate BP & HR: stable & adequate Hydration State: stable & adequate Neuraxial Anesthesia: was administered and sensory block is resolving Anesthetic Complications: no major complications apparent and Pt Satisfied with anesthetic care
[2023-10-25] MEDS: ASPIRIN 81 MG ECTAB PO SCH (19:51)
[2023-10-25] MEDS: SENNA 8.6 MG TAB PO SCH (19:52)
[2023-10-25] MEDS: DOCUSATE SODIUM 100 MG CAP PO SCH (19:52)
[2023-10-26] MEDS: LEVOTHYROXINE SODIUM 50 MCG TABLET PO SCH (05:46)
--- NOTE | 2023-10-26 06:53 | Orthopedic Progress Note ---
Date of Service October 26, 2023 Assessment & Plan (1) Status post right knee replacement: Overall she is doing very well. She is not having much pain in the right knee. She will be seen by physical therapy today for ambulation and range of motion exercises. The nursing staff can change her dressing after physical therapy. She is on aspirin for DVT prophylaxis. She can be discharged home later today. She will follow-up with orthopedics in 2 weeks. Landen Coombs was seen and examined at bedside this morning. Overall she is doing very well. She is not having much pain in the right knee. She has been up and ambulating in the hallways. She has no complaints.. Review of Systems All systems reviewed & are unremarkable except as noted in HPI & below. Physical Exam On physical examination of the right knee, the dressing is clean and dry. Her leg is out in full extension. She has active dorsiflexion plantarflexion of her right ankle.. Results & Data Results & Data Laboratory Results . Diagnostic Findings Postoperative x-rays of the right knee show the prosthesis to be in anatomic alignment without any evidence of fracture, dislocation, or loosening.. PG Care Time/CCT Total # of Minutes Spent Total Time Spent with Patient: Total time spent is greater than 50% in coordination of care (as documented) at patient's floor/unit and/or counseling patient: Coding Level of Care Code 94612 Post Operative Follow-Up Diagnoses Status post right knee replacement Z96.651
--- NOTE | 2023-10-26 06:54 | Discharge Summary ---
Date of Service October 26, 2023 Admission HPI (Per Admitting) Corin is a pleasant 77-year-old female who has been dealing with chronic increasing right knee pain. She did have an injection about 8 months ago. She then went to [place]. She had a fall. She was having some increased pain in the knee. She had x-rays of the knee, which showed advanced arthritis. She then had another injection to the knee. The second injection did not help much. Unfortunately, she is really struggling with the knee. After failing conservative treatment, she has elected to proceed with a right total knee arthroplasty. Admission Exam (Per Admitting) On physical examination of the right knee, she has a slight varus deformity. She has tenderness palpation of the distal medial femoral condyle and over the medial joint line.. Principal Diagnosis Same as "Discharge Diagnosis" noted below under Discharge Instructions. Discharge Exam On physical examination of the right knee, the dressing is clean and dry. Her leg is out in full extension. She has active dorsiflexion plantarflexion of her right ankle.. Discharge Data Procedures Performed Operation Date: 10/25/23 12:00 Actual Procedures p Right Total Knee Arthroplasty(Right) - Bird Plunkett DO Ordered Studies 10/25/23 05:00 US - OR guided needle placemen Routine Hospital Course (1) Status post right knee replacement: On October 25, 2023 Corin arrived at [facility] and underwent a right knee replacement without complication. She had a spinal anesthetic. Postop eratively she was started on aspirin for DVT prophylaxis and transferred to the general orthopedic floors. Her hospital course was uneventful. On postop day #1, her vital signs were stable and her pain was well-controlled. She was able to participate well with physical therapy doing ambulation and range of motion exercises. She was then discharged home. She will follow-up with orthopedics in 2 weeks. PG Care Time/CCT Total # of Minutes Spent Total Time Spent with Patient: Total time spent is greater than 50% in coordination of care (as documented) at patient's floor/unit and/or counseling patient: Discharge Plan Discharge Items Patient Disposition: Home - Self-Care Reason For Visit: Right Knee Degenerative Joint Disease Discharge Diagnosis: Right knee replacement Activity: As commented below Non-emergency contact: Surgeon and Specialist Call non-emergency contact if: your wound has increased redness and your wound has increased drainage Follow-up/Referrals: Kathya Rivers DO [Primary Care Provider] - Diet: Regular Addtl Attending Provider Instructions: Activity and Therapy Recommendations: * If you are using [facility] then therapy will be provided at your home until they feel you have accomplished all of your goals. * If you are using [facility] then Physical Therapy will be provided until they feel you are ready to start Outpatient Physical Therapy. * If you are not using home therapy then Outpatient Physical Therapy should start about 3-5 days from your day of surgery. Therapy will last about 6-10 weeks * It is important not to put a pillow under your knee when you are relaxing or sleeping. It is just as important to make sure you are getting your knee perfectly straight as it is to regain your knee bend. * You were shown a series of exercises in the hospital. Do these exercises three times each day including the exercises you were shown in physical therapy. * Get up and walk several times each day. For the first four weeks, try not to stand or walk for more than one hour at a time. If you do stand or walk for more than one hour, you will not hurt anything, but your leg will likely swell. * As you feel comfortable, you may change from the walker or crutches to a cane and then to independent walking. Medications: * Narcotic You will likely be sent home from the hospital with a prescription for the narcotic pain medication that worked best throughout your stay. * Cefadroxil -take the antibiotic twice a day for 10 days to help with infection. * Aspirin Most patients will be required to take Aspirin 81mg twice a day for 6 weeks after surgery. This is obtained [id number] and a prescription is not necessary. * Other medications may be prescribed for specific circumstances. If you have any questions, please call the office at . * Resume previous home medications unless otherwise instructed TEDs/Elastic Stockings: The white elastic stockings help limit swelling and prevent blood clots from forming in your legs.~ The more you wear them, the more they work. Wear them for six weeks. Dressing Care: The dressing can be changed after physical therapy on postop day #1. Daily dry dressing changes for a few days, especially if the incision is still draining some. If the incision is not draining then you may leave the penny open to air. If there is a little bit of drainage or if the penny are getting stuck on your clothing then cover the incision with a dry dressing. The penny will be removed at your 2 week follow-up appointment. Showering: You may shower 5 days from the day of surgery as long as the incision is no longer draining. You may shower with the penny exposed. Let soapy water run over the penny and pat them dry. Do not scrub or soak the incision. Things To Watch For: * Drainage from the incision site that occurs more than one week after your surgery. * Increased redness at the incision site. * Fever above 102 degrees Fahrenheit. * Unusual chest pain or shortness of breath. * Call [facility] at with any of the above problem s Follow-Up Visit: Follow-up with Dr. Plunkett's PA (Bird Hernandez) 2-3 weeks after your day of surgery. He will remove your penny and answer any questions. If you have any additional questions or concerns, Dr Plunkett is usually in the office at the same time and will be available An appointment was probably scheduled when you signed-up for surgery in the office. If you have any questions call Office Instructions: More detailed instructions as well as Frequently Asked Questions were provided in a folder by our office when you signed-up for surgery. Please review these instructions when you get home. If you have any further questions or concerns, please feel free to call the office at [phone] Pending Studies at Discharge: No Stand-Alone Forms: [facility], Smoking Cessation Medications and DC Order Prescriptions: New oxycodone 5 mg Tablet 5 mg PO Q4H PRN (Reason: pain) Qty: 30 0RF cefadroxil 500 mg capsule 500 mg PO BID 10 Days Qty: 20 0RF Continued albuterol sulfate 90 mcg/actuation HFA aerosol inhaler 2 - 4 puff INHALATION Q6H PRN (Reason: Shortness Of Breath) Qty: 6.7 0RF cholecalciferol (vitamin D3) 25 mcg (1,000 unit) capsule 25 mcg PO DAILY ascorbate calcium (vitamin C) 500 mg tablet 500 mg PO DAILY omega-3 fatty acids [Fish Oil Concentrate] 1,000 mg capsule 1,000 mg PO BID ibandronate [Boniva] 150 mg Tablet 150 mg PO MONTHLY Patient Comments: not taking at present 09/03/23 levothyroxine [Synthroid] 50 mcg tablet 50 mcg PO QAM Changed aspirin 81 mg Tablet,Delayed Release (Dr/Ec) 81 mg PO BID 42 Days Qty: 0 0RF Discharge Orders: Discharge Order (Routine); Ordered 10/26/23 Ordered By: Bird Plunkett Admission Data Admit Date/Time: 10/25/23 13:17 Attending Provider: Bird Plunkett Admit Provider: Bird Plunkett Primary Care Provider: Kathya Rivers
[2023-10-26] MEDS: MULTIVITAMIN TAB PO SCH (08:57)
[2023-10-26] MEDS: dexAMETHasone 4 MG TAB PO SCH (08:57)
== END 2023-10-26 09:25 | disposition home or self-care (01) ==
LOC: 3W 10:32 → ASU 10:32

== ENCOUNTER 2024-08-11 12:31 | Inpatient (IN) ==
--- NOTE | 2024-08-11 13:09 | XRay Report ---
XR chest 1V not portable CLINICAL HISTORY: fever COMPARISON STUDY: 09/20/2023 FINDINGS: Heart size and pulmonary vasculature are normal. No effusion, consolidation, or pneumothora x. IMPRESSION: No pneumonia seen. ACT 112: Negative or not required by law. Electronically signed by: Uriel Evans M.D. 08/11/2024 1:08 PM
[2024-08-11 13:20] LABS: Basophils # (auto) 0.05 K/uL (0.00-0.20); Basophils % (auto) 0.6 %; Eosinophils # (auto) 0.25 K/uL (0.00-0.50); Eosinophils % (auto) 3.2 %; Hematocrit (blood only) 38.8 % (37.0-47.0); Hemoglobin 12.9 g/dl (12.0-16.0); Immature Granulocytes # (auto) 0.03 K/uL (0.01-0.20); Immature Granulocytes % (auto) 0.4 %; Lymphocytes # (auto) 0.75 K/uL (1.20-3.40); Lymphocytes % (auto) 9.6 %; Mean Corpuscular Hemoglobin 31.9 pg (25.0-34.0); Mean Corpuscular Hgb Conc 33.2 g/dL (32.0-36.0); Mean Corpuscular Volume 95.8 fL (80.0-100.0); Monocytes # (auto) 0.62 K/uL (0.11-0.59); Monocytes % (auto) 7.9 %; Neutrophils % (auto) 78.3 %; Platelet Count 297 K/uL (130-400); RDW Standard Deviation 45.9 fL (36.4-46.3); Red Blood Count 4.05 M/uL (4.20-5.40)
--- NOTE | 2024-08-11 13:28 | CT Scan Report ---
CT head/brain wo con CLINICAL HISTORY: headache, fever. TECHNIQUE: Multiple axial CT images of the head were obtained without contrast. A dose lowering tech nique was utilized adhering to the principles of ALARA. CT DOSE: 625.8 mGy.cm COMPARISON: None FINDINGS: No intracranial hemorrhage seen. No mass effect, midline shift, or hydrocephalus. No skull fracture. Visualized paranasal sinuses and mastoid air cells are clear. IMPRESSION: No acute findings. ACT 112: Negative or not required by law. The above report was generated using voice recognition software. It may contain grammatical, syntax o r spelling errors. Electronically signed by: Uriel Evans M.D. 08/11/2024 1:26 PM
[2024-08-11 13:38] LABS: Albumin Level 3.5 gm/dl (3.4-5.0); BUN Creatinine Ratio 16.9 (10-20); Bilirubin Direct 0.1 mg/dl (0-0.2); Bilirubin,Total 0.3 mg/dl (0.2-1.0); Calcium 8.6 mg/dl (8.6-10.3); Creatinine Clr Calc Pharmacy 66.2 ml/min; Total Protein 6.6 gm/dl (6.0-8.3)
[2024-08-11 13:43] LABS: Troponin I High Sensitivity 6.1 pg/ml (0-14)
[2024-08-11 14:12] LABS: Adenovirus PCR Not Detected (NotDetected); Bordetella parapertussis PCR Not Detected (NotDetected); Bordetella pertussis PCR Not Detected (NotDetected); Chlamydia pneumoniae PCR Not Detected (NotDetected); Coronavirus 229E PCR Not Detected (NotDetected); Coronavirus CoV-2 (COVID19)PCR Not Detected (NotDetected); Coronavirus HKU1 PCR Not Detected (NotDetected); Coronavirus NL63 PCR Not Detected (NotDetected); Coronavirus OC43PCR Not Detected (NotDetected); Human Metapneumovirus PCR Not Detected (NotDetected); Influenza A PCR Not Detected (NotDetected); Influenza B PCR Not Detected (NotDetected); Mycoplasma pneumoniae PCR Not Detected (NotDetected); Parainfluenza Virus 1 PCR Not Detected (NotDetected); Parainfluenza Virus 2 PCR Not Detected (NotDetected); Parainfluenza Virus 3 PCR Not Detected (NotDetected); Parainfluenza Virus 4 PCR Not Detected (NotDetected); Respiratory Syncytial VirusPCR Not Detected (NotDetected); Rhinovirus/Enterovirus PCR Not Detected (NotDetected)
--- NOTE | 2024-08-11 14:31 | Emergency Department Note ---
Impression & Plan Headache ED Provider Note NAME: SHELDON JEAN BAPTISTE AGE: 78 SEX: Female INFORMANT: Patient and ED PROVIDER(S): Arnulfo Jacob MD CHIEF COMPLAINT: Headache PLAN: Disposition: Admitted Outpatient prescription management: None Referral: None MEDICAL DECISION MAKING: patient presented because of a headache. Head CT was performed and was negative. BioFire testing performed and negative as well. Patient had unremarkable CBC and chemistry panel. Cardiac troponin negative. ECG did show a single T wave inversion in V2. Patient has no chest pain. Procalcitonin was negative. Chest x-ray was negative. Discussed need for lumbar puncture with patient to rule out meningitis/encephalitis. Patient in agreement. Patient had not taken her aspirin today and did not take it yesterday. Patient underwent attempt at lumbar puncture bedside. See procedure note below. Unfortunately this was unable to be accomplished with bedside technique. I did consult with Dr. Evans of interventional radiology. The patient was sent to the radiology suite and underwent fluoroscopy for lumbar puncture. He did note that the patient's approach was difficult even with fluoroscopy. CSF was obtained and sent to the lab for analysis. ESR and CRP were added to the patient's labs and these were significantly elevated. The patient's glucose was normal on CSF but protein was minimally elevated. Cell count did not reveal any gross abnormality that would suggest an encephalitis or meningitis. A consult was placed with Dr. Bradshaw of neurology. Case was discussed and diagnostics reviewed. He recommended adding on a CSF BioFire. He also recommended MRI with and without contrast and MRV. These were ordered. Empiric antibiotic therapy was not recommended. Patient did receive IV fentanyl and was still having pain. Patient was switched to IV Dilaudid. Patient also received IV Tylenol. Neurology agreed with admission and further workup. Patient upon the additional workup ID consultation may be necessary. Consultation was made with the [facility] hospitalist service, Dr. Harvey. Case was discussed and diagnostics were reviewed. Patient was evaluated in the ER and admitted for further management Care/management discussed with: manager acute, radiology, neurology, hospitalist Level of care consideration(s): After review of the information above and other included data, I feel the patient requires escalation of care to admission Triage Nursing notes: reviewed and agree them. Vital Signs: reviewed and remarkable for no significant abnormalities Additional History obtained from: Patient's Chronic Medical/Social Conditions affecting care: Hypothyroidism none Prior/ Outside/ External records reviewed: none Differential Diagnosis: Migraine headache, meningitis, sinusitis, CO exposure, ICH, SAH, infection, tumor, headache, sinus thrombosis, arterial dissection, as well as other pathologies. Diagnostics, independently interpreted by me: ECG: Twelve-lead ECG reveals normal sinus rhythm at 70 beats per minute. No evidence of pericarditis, ST elevation, ectopy, or dysrhythmia. T wave inversion noted in v 2 when compared to ECG of 05/30/2019. Cardiac Monitoring: Cardiac monitoring ordered by me: The patient was placed on continuous cardiac monitoring and observed. It revealed a normal sinus rhythm at 75 beats per minute without ectopy or evidence of dysrhythmia. Medical decision rules: none Imaging studies: Head CT: A noncontrast CT scan of the head was performed and was negative for tumor, fracture, intracranial hemorrhage, or other acute pathology. Chest x-ray. Findings: A chest x-ray was performed and revealed no pneumothorax, effusion, infiltrate, pulmonary edema, free air under the diaphragm, or wide mediastinum. Impression: No acute disease. HPI: 78 year old Female arrives for evaluation of headache. This started 9 days ago and is persisting. The patient also notes the following associated symptoms, neck pain, fever, jaw pain. The patient has been prescribed amoxicillin for relieving factors. Current pain is rated as 9/10. Pt denies LOC, diaphoresis, visual changes, chest pain, breathing difficulties, nausea, vomiting, abdominal pain, back pain, melena, hematochezia, urinary symptoms, numbness, weakness, lymphadenopathy, rash, or other complaints. PAST MEDICAL HISTORY: See Below, hypothyroidism PAST SURGICAL HISTORY: See Below, SOCIAL HISTORY: See Below, . no travel. no animal exposures HOME MEDICATIONS: See Below ALLERGIES: See Below VITALS: See Below PHYSICAL EXAMINATION: GENERAL: Awake, alert, uncomfortable-appearing, in no distress HENT: Normocephalic, atraumatic. Oropharynx unremarkable. EYES: Normal conjunctiva. Sclera non-icteric. NECK: Inspection normal. Non-tender. Supple. No nuchal rigidity. FROM. No masses. RESPIRATORY: Clear to auscultation. No wheezes. No rales. Normal respiratory effort. CARDIAC: Normal rate. Normal rhythm. No murmurs. No rubs. Extremities warm and well perfused. Pulses equal. No JVD. GI: Soft, non-distended. No tenderness to palpation. No rebound or guarding. No masses. RECTAL: Deferred. MUSCULOSKELETAL: Atraumatic. Chest examination reveals no tenderness. The back is symmetrical on inspection without obvious abnormality. There is no CVA tenderness to palpation. No joint edema. LOWER EXTREMITIES: Calves are equal size bilaterally and non-tender. No edema. No discoloration. NEURO: Normal sensorium. No sensory or motor deficits noted. SKIN: No rash or jaundice noted. PROCEDURES: LUMBAR PUNCTURE: Indication: Headache and fever. Verbal consent was obtained after the risks and benefits were explained, including but not limited to headache, bleeding, scarring, infection, pain, and bone/joint/nerve damage. At this time, the risks of the procedure are less than the risks of NOT performing the procedure. A time out was taken and the correct patient and site identified. The patient was placed in the left lateral decubitus position and the back was prepped and draped in the standard fashion with betadine. The L3 intervertebral space was identified, anesthetized with lidocaine, and the 22-gauge spinal needle was inserted through the skin with the bevel parallel to the dural fibers. The needle was carefully advanced towards the sac despite 2 redirections I was unable to enter the dural sac. The stylet was replaced and the needle was removed. The patient tolerated the procedure well and there were no complications. Interventional radiology was consulted CRITICAL CARE: none OBSERVATION NOTE: none Past Med/Surg History Problem List (Updated 08/11/24 @ 14:31 by Arnulfo Jacob MD) Headache (Acute) Status post right knee replacement (~10/2023) Osteoarthritis of right knee Impacted cerumen, right ear Wears hearing aid in both ears Phonak Audeo L70R disp 09/21/22 History of colon polyps Family history of colon cancer in mother Bilateral tinnitus Urinary incontinence Insomnia Itchy scalp Stable - possibly due to thyroid disease Osteoporosis (Acute) Sensorineural hearing loss (SNHL) of both ears mild to mod-sev HF SNHL AU Bilateral hearing aids Carpal tunnel syndrome, right Ulnar neuropathy at wrist Hypothyroidism Medical History Urinary incontinence Ulnar neuropathy at wrist Bilateral hearing loss Osteoarthritis of right knee Insomnia Hypothyroidism History of colon polyps History of carpal tunnel syndrome Bilateral tinnitus History of COVID-19 Chronic back pain Arthritis Migraine SOB (shortness of breath) Osteoporosis Surgical History History of total right knee replacement (TKR) Perforated nasal septum S/P wrist surgery History of anesthesia reaction History of colonoscopy [place] teeth extracted History of arthroscopic knee surgery History of hysteroscopy Family History Mother Family hx of colon cancer Colorectal cancer Father Prostate cancer Other Osteoporosis Denies family history of Ovarian cancer Myocardial infarction Breast cancer Social History Smoking Status: Never smoker Second Hand Exposure: Yes (as child); Do You Dip or Chew Tobacco: No; Hx Alcohol Use: Yes Alcohol type: wine Alcohol Intake Frequency: Monthly or Less Hx Substance Use: No Preferred Language: Greek Communication Ability: Effective Visual Impairment: No Limitations Hearing Ability: Hard of Hearing Header Up Required: No Beliefs That Will Affect Care: None marital status: Current Living Situation: Spouse current occupational status: retired Feels Safe at Home: Yes Childhood Exposure to Second-Hand Smoke: Yes Diet: regular Dental Care, Regularly: Yes Physical Activity Frequency: 3-4 Times per Week Seatbelt Use: always Sunscreen Use: Yes Assistive Devices: Glasses and Hearing Aid - Bilateral Allergies Allergies Allergy/AdvReac Type Severity Reaction Status Date / Time No Known Drug Allergies Allergy Unknown . Verified 12/23/23 11:46 nickel AdvReac Mild SKIN Verified 12/23/23 11:46 IRRITATION Home Meds Home Medications Medication Instructions Recorded Confirmed ascorbate calcium (vitamin C) 500 500 mg PO QAM 06/20/20 08/11/24 mg tablet cholecalciferol (vitamin D3) 25 25 mcg PO UD 06/20/20 08/11/24 mcg (1,000 unit) capsule omega-3 fatty acids 1,000 mg 1,000 mg PO UD 06/20/20 08/11/24 capsule (Fish Oil Concentrate) levothyroxine 50 mcg tablet 50 mcg PO QAM 01/07/23 08/11/24 (Synthroid) aspirin 81 mg tablet,delayed 81 mg PO UD 12/13/23 08/11/24 release amoxicillin 500 mg tablet 2,000 mg PO ONCE PRN dental karla 08/11/24 08/11/24 amoxicillin 875 mg-potassium 1 tab PO BID 08/11/24 08/11/24 clavulanate 125 mg tablet oxycodone 5 mg tablet 5 mg PO UD PRN pain 08/11/24 08/11/24 Previous Rx's Medication Instructions Recorded albuterol sulfate 90 mcg/actuation 2 - 4 puff inhalation Q6H PRN 05/22/20 aerosol inhaler Shortness Of Breath #6.7 grams Results & Data (ED) Vital Signs Vital Signs - 24 hr 08/11/24 12:44 08/11/24 14:02 08/11/24 14:04 Temperature 36.6 C Temperature Source Oral Pulse Rate 76 Pulse Rate [Finger] 75 Pulse Rate from SpO2 Sensor Respiratory Rate 18 20 Respiratory Effort / Characteristics Non-Labored Spontaneous SOB on Exertion Respiratory Depth Normal Respiratory Pattern Blood Pressure 129/88 Blood Pressure [Right Arm] 133/77 Blood Pressure Mean 101 Blood Pressure Mean [Right Arm] 95 Blood Pressure Position [Right Arm] Lying Pulse Oximetry 98 98 100 Oxygen Delivery Method Room Air Room Air Room Air Sepsis Recent Fever Within 48 Hours Yes Sepsis New/Unexplained Change in Mental Status No Sepsis Action Taken by Nursing No Action Required 08/11/24 14:29 08/11/24 15:00 08/11/24 15:00 Temperature Temperature Source Pulse Rate 70 67 Pulse Rate [Finger] 65 Pulse Rate from SpO2 Sensor 65 Respiratory Rate 18 15 Respiratory Effort / Characteristics Respiratory Depth Respiratory Pattern Blood Pressure 125/71 Blood Pressure [Right Arm] 125/71 Blood Pressure Mean 89 Blood Pressure Mean [Right Arm] 89 Blood Pressure Position [Right Arm] Pulse Oximetry 98 99 Oxygen Delivery Method Room Air Sepsis Recent Fever Within 48 Hours Sepsis New/Unexplained Change in Mental Status Sepsis Action Taken by Nursing 08/11/24 15:30 08/11/24 16:00 08/11/24 16:30 Temperature Temperature Source Pulse Rate 71 70 65 Pulse Rate [Finger] Pulse Rate from SpO2 Sensor 70 72 Respiratory Rate 17 22 16 Respiratory Effort / Characteristics Respiratory Depth Respiratory Pattern Blood Pressure 119/63 130/85 126/76 Blood Pressure [Right Arm] Blood Pressure Mean 81 100 92 Blood Pressure Mean [Right Arm] Blood Pressure Position [Right Arm] Pulse Oximetry 97 99 99 Oxygen Delivery Method Sepsis Recent Fever Within 48 Hours Sepsis New/Unexplained Change in Mental Status Sepsis Action Taken by Nursing 08/11/24 18:00 08/11/24 18:15 08/11/24 18:26 Temperature Temperature Source Pulse Rate 70 68 Pulse Rate [Finger] Pulse Rate from SpO2 Sensor 71 Respiratory Rate 20 Respiratory Effort / Characteristics Respiratory Depth Respiratory Pattern Blood Pressure 128/72 128/87 Blood Pressure [Right Arm] Blood Pressure Mean 90 102 Blood Pressure Mean [Right Arm] Blood Pressure Position [Right Arm] Pulse Oximetry 98 Oxygen Delivery Method Sepsis Recent Fever Within 48 Hours Sepsis New/Unexplained Change in Mental Status Sepsis Action Taken by Nursing 08/11/24 18:30 08/11/24 18:45 08/11/24 19:00 Temperature Temperature Source Pulse Rate 69 76 Pulse Rate [Finger] 75 Pulse Rate from SpO2 Sensor Respiratory Rate 18 22 Respiratory Effort / Characteristics Non-Labored Spontaneous Respiratory Depth Normal Respiratory Pattern Regular Blood Pressure 138/82 120/76 Blood Pressure [Right Arm] 140/72 Blood Pressure Mean 98 97 Blood Pressure Mean [Right Arm] 94 Blood Pressure Position [Right Arm] Pulse Oximetry 98 98 98 Oxygen Delivery Method Sepsis Recent Fever Within 48 Hours Sepsis New/Unexplained Change in Mental Status Sepsis Action Taken by Nursing Laboratory Data 08/11/24 12:58 08/11/24 12:58 Lab Results 08/11/24 08/11/24 08/11/24 Range/Units 12:58 14:20 17:17 WBC 7.80 (4.8-10.8) K/ul RBC 4.05 L (4.20-5.40) M/uL Hgb 12.9 (12.0-16.0) g/dl Hct 38.8 (37.0-47.0) % MCV 95.8 (80.0-100.0) fL MCH 31.9 (25.0-34.0) pg MCHC 33.2 (32.0-36.0) g/dL RDW Std Deviation 45.9 (36.4-46.3) fL RDW Coeff of Jl 13.0 (11.5-14.5) % Plt Count 297 (130-400) K/uL MPV 9.0 L (9.4-12.4) fL Immature Gran % (Auto) 0.4 % Neut % (Auto) 78.3 % Lymph % (Auto) 9.6 % Island % (Auto) 7.9 % Eos % (Auto) 3.2 % Baso % (Auto) 0.6 % Neut # (Auto) 6.10 (1.40-6.50) K/uL Lymph # (Auto) 0.75 L (1.20-3.40) K/uL Island # (Auto) 0.62 H (0.11-0.59) K/uL Eos # (Auto) 0.25 (0.00-0.50) K/uL Baso # (Auto) 0.05 (0.00-0.20) K/uL Immature Gran # (Auto) 0.03 (0.01-0.20) K/uL ESR 76 H (0-30) mm/hr Sodium 137 (136-145) mmol/L Potassium 4.0 (3.5-5.1) mmol/L Chloride 103 (98-107) mmol/L Carbon Dioxide 29 (21-32) mmol/L Anion Gap 5 (3-11) BUN 10 (6-23) mg/dl Creatinine 0.59 L (0.6-1.2) mg/dl Est Cr Clr Drug Dosing 66.2 ml/min eGFR 91.05 BUN/Creatinine Ratio 16.9 (10-20) Glucose 96 (70-99(Fasting)) mg/dl Lactate 1.0 (0.4-2.0) mmol/L Calcium 8.6 (8.6-10.3) mg/dl Magnesium 2.0 (1.7-2.4) mg/dl Total Bilirubin 0.3 (0.2-1.0) mg/dl Direct Bilirubin 0.1 (0-0.2) mg/dl AST 32 (13-39) U/L ALT 34 (7-52) U/L Alkaline Phosphatase 113 H (34-104) U/L Troponin I High Sens 6.1 (0-14) pg/ml C-Reactive Protein 16.77 H (0-0.5) mg/dl Total Protein 6.6 (6.0-8.3) gm/dl Albumin 3.5 (3.4-5.0) gm/dl Procalcitonin 0.05 (0-0.5) ng/ml Fluid Comment CSF Appearance Clear CSF Color Colorless Xanthrochromic No xanthochromia CSF WBC 0 (0-5) CSF RBC 3 (0) CSF Cell Count Tube # 3 CSF Chemistry Tube # 1 CSF Glucose 59 (40-70) mg/dl CSF Total Protein 49.0 H (15-45) mg/dl Adenovirus (PCR) Not Detected (NotDetected) Babesia microti DNA PCR Cancelled B. pertussis DNA (PCR) Not Detected (NotDetected) B.parapertussis DNA PCR Not Detected (NotDetected) Lyme Disease Screen Negative (Negative) C. pneumoniae DNA (PCR) Not Detected (NotDetected) Coronavirus OC43 (PCR) Not Detected (NotDetected) Coronavirus HKU1 (PCR) Not Detected (NotDetected) Coronavirus 229E (PCR) Not Detected (NotDetected) SARS-CoV-2 (PCR) Not Detected (NotDetected) Coronavirus NL63 (PCR) Not Detected (NotDetected) Human Metapneumovir PCR Not Detected (NotDetected) Influenza Type A (PCR) Not Detected (NotDetected) Influenza Type B (PCR) Not Detected (NotDetected) M. pneumoniae (PCR) Not Detected (NotDetected) Parainfluenza 1 (PCR) Not Detected (NotDetected) Parainfluenza 2 (PCR) Not Detected (NotDetected) Parainfluenza 3 (PCR) Not Detected (NotDetected) Parainfluenza 4 (PCR) Not Detected (NotDetected) RSV (PCR) Not Detected (NotDetected) Entero/Rhino (PCR) Not Detected (NotDetected) Administered Medications Discontinued Medications Fentanyl Citrate (Fentanyl Citrate Pf 100 Mcg/2 Ml Vial) 50 mcg IV Q15M PRN PRN Reason: Pain Stop: 08/25/24 16:13 Last Admin: 08/11/24 18:22 Dose: 50 mcg Documented By: [email or web address] Admin: 08/11/24 18:01 Dose: 50 mcg Documented By: KATRINA Acetaminophen (Ofirmev) 1,000 mg in 100 mls @ 400 mls/hr IV NOW STA Stop: 08/11/24 14:58 Last Infusion: 08/11/24 15:20 Dose: Infused Documented By: Admin: 08/11/24 14:58 Dose: 400 mls/hr Documented By: KATRINA Ondansetron HCl (Ondansetron Inj 2 Mg/Ml 2 Ml Vial) 4 mg IV NOW STA Stop: 08/11/24 16:15 Last Admin: 08/11/24 18:00 Dose: 4 mg Documented By: NRB Imaging Data Radiologist's Impression: Chest X-Ray 08/11/24 12:48 XR chest 1V not portable CLINICAL HISTORY: fever COMPARISON STUDY: 09/20/2023 FINDINGS: Heart size and pulmonary vasculature are normal. No effusion, consolidation, or pneumothorax. IMPRESSION: No pneumonia seen. ACT 112: Negative or not required by law. Electronically signed by: Uriel Evans M.D. 08/11/2024 1:[address] 08/11/24 12:48 CT head/brain wo con CLINICAL HISTORY: headache, fever. TECHNIQUE: Multiple axial CT images of the head were obtained without contrast. A dose lowering technique was utilized adhering to the principles of ALARA. CT DOSE: 625.8 mGy.cm COMPARISON: None FINDINGS: No intracranial hemorrhage seen. No mass effect, midline shift, or hydrocephalus. No skull fracture. Visualized paranasal sinuses and mastoid air cells are clear. IMPRESSION: No acute findings. ACT 112: Negative or not required by law. The above report was generated using voice recognition software. It may contain grammatical, syntax or spelling errors. Electronically signed by: Uriel Evans M.D. 08/11/2024 1:26 PM Lumbar Puncture 08/11/24 16:14 IR lumbar puncture diagnostic CLINICAL HISTORY: rule out meningitis Fluoroscopy time: 35 seconds. COMPARISON STUDY: None FINDINGS: The procedure was discussed and questions answered. Consent was obtained. Ms. Jean Baptiste was positioned prone on the fluoroscopy table and timeout was performed. The low back was prepped and draped in standard sterile fashion. 1% lidocaine was used for local anesthesia. A 22-gauge spinal needle was advanced at the L4-5 level initially without success. Additional lidocaine was administered. 22-gauge spinal needle was advanced at the L5-S1 level into the thecal sac. Clear CSF appeared spontaneously at the needle. 2.5 cc of clear CSF was collected in each of 4 tubes. Needle was removed. Hemostasis was obtained with manual compression. Sterile dressing was applied. IMPRESSION: Lumbar puncture as described. ACT 112: Negative or not required by law. Electronically signed by: Uriel Evans M.D. 08/11/2024 5:57 PM Discharge Plan Visit Data Chief Complaint: Illness Stated Complaint: POSSIBLE MENINGITIS ED Provider: Arnulfo Jacob Discharge Problem: Headache Forms Stand Alone Forms: [facility] [place] [employer] Prescriptions Prescriptions: No Action albuterol sulfate 90 mcg/actuation HFA aerosol inhaler 2 - 4 puff INHALATION Q6H PRN (Reason: Shortness Of Breath) Qty: 6.7 0RF Rx Instructions: no fill history, unable to verify cholecalciferol (vitamin D3) 25 mcg (1,000 unit) capsule 25 mcg PO UD Rx Instructions: 25 mcg po qam. otc unable to verify ascorbate calcium (vitamin C) 500 mg tablet 500 mg PO QAM Rx Instructions: otc unable to verify omega-3 fatty acids [Fish Oil Concentrate] 1,000 mg capsule 1,000 mg PO UD Rx Instructions: 1000 mg po bid. otc unable to verify levothyroxine [Synthroid] 50 mcg tablet 50 mcg PO QAM Rx Instructions: filled 07/22 for 90 day supply aspirin 81 mg tablet,delayed release (DR/EC) 81 mg PO UD Rx Instructions: 81 mg po qam. otc unable to verify amoxicillin-pot clavulanate 875-125 mg tablet 1 tab PO BID Rx Instructions: filled 08/07/24 10 day supply amoxicillin 500 mg tablet 2,000 mg PO ONCE PRN (Reason: dental karla) Rx Instructions: 4 tabs 1 hour prior to procedure oxycodone 5 mg tablet 5 mg PO UD PRN (Reason: pain) Rx Instructions: 5 mg po q6h prn. last filled 02/08/24 5 day supply Referrals Referrals: Kathya Rivers DO [Primary Care Provider] -
[2024-08-11] MEDS: ACETAMINOPHEN 1,000 MG/100 ML VIAL IV STA (14:58)
[2024-08-11 16:46] LABS: C Reactive Protein 16.77 mg/dl (0-0.5)
--- NOTE | 2024-08-11 17:59 | Fluoroscopy Report ---
IR lumbar puncture diagnostic CLINICAL HISTORY: rule out meningitis Fluoroscopy time: 35 seconds. COMPARISON STUDY: None FINDINGS: The procedure was discussed and questions answered. Consent was obtained. Ms. Lowe was po sitioned prone on the fluoroscopy table and timeout was performed. The low back was prepped and drape d in standard sterile fashion. 1% lidocaine was used for local anesthesia. A 22-gauge spinal needle w as advanced at the L4-5 level initially without success. Additional lidocaine was administered. 22-ga uge spinal needle was advanced at the L5-S1 level into the thecal sac. Clear CSF appeared spontaneous ly at the needle. 2.5 cc of clear CSF was collected in each of 4 tubes. Needle was removed. Hemostasi s was obtained with manual compression. Sterile dressing was applied. IMPRESSION: Lumbar puncture as described. ACT 112: Negative or not required by law. Electronically signed by: Uriel Evans M.D. 08/11/2024 5:57 PM
[2024-08-11] MEDS: ONDANSETRON INJ 2 MG/ML 2 ML VIAL IV STA (18:00)
[2024-08-11] MEDS: fentaNYL citrate PF 100 MCG/2 ML VIAL IV PRN (18:01)
[2024-08-11 18:50] LABS: Appearance CSF Clear; CSF Count Tube # 3; CSF Xanthrochromic No xanthochromia; Color CSF Colorless
[2024-08-11 19:13] LABS: Red Blood Cell CSF Manual 3 (0); White Blood Cell CSF Manual 0 (0-5)
[2024-08-11] MEDS ORDERED: HYDROmorphone INJ 0.5 MG/0.5 ML SYR IV PRN (19:22)
[2024-08-11] MEDS: GADOBUTROL 30ML VIAL IV ONE (20:35)
[2024-08-11 21:25] LABS: Appearance Urine Clear (Clear); Bilirubin Urine Negative (Negative); Blood Urine Negative (Negative); Color Urine Yellow; Glucose Urine UA Negative (Negative); Ketones Urine Trace (Negative); Leukocyte Esterase Urine Negative (Negative); Nitrite Urine Negative (Negative); Protein Urine Negative (Negative); Specific Gravity Urine 1.027 (1.000-1.030); Urobilinogen Urine Negative (Negative)
[2024-08-11 22:12] LABS: Cryptococcus neoformans/ga PCR Not Detected (NotDetected); Cytomegalovirus PCR Not Detected (NotDetected); Enterovirus PCR Not Detected (NotDetected); Escherichia coli K1 PCR Not Detected (NotDetected); Haemophilius influenzae PCR Not Detected (NotDetected); Herpes Simplex Virus 1 PCR Not Detected (NotDetected); Herpes Simplex Virus 2 PCR Not Detected (NotDetected); Human Herpes Virus 6 PCR Not Detected (NotDetected); Human Parechovirus PCR Not Detected (NotDetected); Listeria monocytogenes PCR Not Detected (NotDetected); Neisseria meningitidis PCR Not Detected (NotDetected); Streptococcus agalactiae PCR Not Detected (NotDetected); Streptococcus pneumoniae PCR Not Detected (NotDetected); Varicella Zoster Virus PCR Not Detected (NotDetected)
--- NOTE | 2024-08-11 22:14 | Magnetic Resonance Report ---
Exam(s): MRV HEAD EXAM: MR Venography Head Without Intravenous Contrast CLINICAL HISTORY: Reason for exam: headache. TECHNIQUE: Magnetic resonance venography images of the head without intravenous contrast. COMPARISON: No relevant prior studies available. FINDINGS: Superior sagittal sinus: Unremarkable. Patent. Straight sinus: Unremarkable. Patent. Transverse sinuses: Unremarkable. Patent. Sigmoid sinuses: Unremarkable. Patent. Internal jugular veins: Unremarkable as visualized. Internal cerebral and cortical veins: Unremarkable as visualized. IMPRESSION: Normal head/brain MRV. Electronically signed by: Geraldo Chiu M.D. 08/11/24 22:13 PM
--- NOTE | 2024-08-11 22:16 | Magnetic Resonance Report ---
Exam(s): MRI HEAD W/WO Contrast IV Amt: 6.3 gadavist EXAM: MR Head Without and With Intravenous Contrast CLINICAL HISTORY: Reason for exam: headache, fever. TECHNIQUE: Magnetic resonance images of the head/brain without and with intravenous contrast in multiple planes. CONTRAST: Patient received 6.3 gadavist of IV contrast COMPARISON: CT head FINDINGS: Brain: No diffusion restriction to suggest acute cerebral ischemia. No acute intracranial hemorrhage. Senescent globus pallidus mineralization. Proximal intracranial flow voids appear normal. Parenchymal volume appears normal for age. No mass-effect or shift. Periventricular deep cerebral white matter foci of FLAIR signal hyperintensity in keeping with mild chronic small vessel ischemic change. No intracranial mass or abnormal enhancement. Ventricles: Unremarkable. No hydrocephalus. Bones/joints: Unremarkable. No acute fracture. Sinuses: Mild mucosal thickening in the maxillary sinuses. Mastoid air cells: Unremarkable as visualized. No mastoid effusion. Orbits: Lens replacements. IMPRESSION: 1. No diffusion restriction to suggest acute cerebral ischemia. No acute intracranial hemorrhage. 2. No intracranial mass or abnormal enhancement. Electronically signed by: Geraldo Chiu M.D. 08/11/24 22:15 PM
--- NOTE | 2024-08-11 22:27 | Electrocardiogram Report ---
Test Reason : Blood Pressure : */* mmHG Vent. Rate : 78 BPM Atrial Rate : 78 BPM P-R Int : 162 ms QRS Dur : 70 ms QT Int : 368 ms P-R-T Axes : 71 79 66 degrees QTcB Int : 419 ms Sinus rhythm with Premature atrial complexes Otherwise normal ECG When compared with ECG of 30-May-2019 09:59, Premature atrial complexes are now Present Confirmed by Saturnino Moore ([id number]) on 08/11/2024 10:26:37 PM Referred By: Confirmed By: Saturnino Moore
[2024-08-12] MEDS ORDERED: NITROGLYCERIN SL 0.4 MG/TAB TAB SL PRN (00:39)
[2024-08-12] MEDS ORDERED: HYDROmorphone INJ 0.5 MG/0.5 ML SYR IV PRN (00:39)
[2024-08-12] MEDS ORDERED: POLYETHYLENE (MIRALAX) 17 GM PACK PO PRN (00:39)
[2024-08-12] MEDS: HYDROmorphone INJ 0.5 MG/0.5 ML SYR IV PRN (01:25)
[2024-08-12] MEDS: SODIUM CHLORIDE 0.9% 1,000 ML IV SCH (01:28)
--- OUTSIDE RECORDS SUMMARY | 2024-08-12 02:04 | External Medical Summary ---
Author Name Unknown Address Unknown Organization [id number][place] [place] [address] [place] [address] Laboratory Report Ordering Provider Test Date Status JAYNA PARKERE 08/03/2024 09:15:33 Final Deficient: <20 ng/mL
Ins ufficient: 20-29 ng/mL
Recommended/Optimum:30-50 ng/mL

Vitamin D intoxication is rare. If suspicious of Vitamin D toxicity, evaluation of serum Calcium and PTH is recommended. Observation Date Value Abnormality Reference (Units ) Status 25-OH Vitamin D total 08/03/2024 09:15:33 39 >19 (ng/mL) Final Performing Location [facility] [place] [address] [place] [id number]
--- OUTSIDE RECORDS SUMMARY | 2024-08-12 02:04 | External Medical Summary ---
Author Name Unknown Address Unknown Organization K01:[facility] [place] [facility] [address] [facility] [address] Laboratory Report Ordering Provider Test Date Status JASMYNE AUSTIN 08/03/2024 09:15:33 Final Observation Date Value Abnormality Reference (Units ) Status WBC, Total 08/03/2024 09:15:33 6.32 4.00-10.80 (K/uL) Final RBC 08/03/2024 09:15:33 4.35 3.85-5.15 (M/uL) Final Hemoglobin 08/03/2024 09:15:33 14.2 12.0-15.3 (g/dL) Final HCT 08/03/2024 09:15:33 44.3 36.0-45.2 (%) Final MCV 08/03/2024 09:15:33 101.8 81.5-97.5 (fL) Final MCH 08/03/2024 09:15:33 32.6 27.0-34.0 (pg) Final MCHC 08/03/2024 09:15:33 32.1 32.0-36.0 (g/dL) Final RDW 08/03/2024 09:15:33 13.2 11.5-15.5 (%) Final Platelets 08/03/2024 09:15:33 233 140-400 (K/uL) Final MPV 08/03/2024 09:15:33 9.8 6.6-11.1 (fL) Final Nucleated erythrocytes/100 leukocytes [Ratio] in Blood by Automated count 08/03/2024 09:15:33 0 <=0 (/100 WBCs) Final Performing Location [facility] [place] [address] [facility] [address]
--- OUTSIDE RECORDS SUMMARY | 2024-08-12 02:04 | External Medical Summary | Summary of Care ---
Author Name Unknown Organization [facility] Address [address] [place] [address] Phone [phone] Care Team Providers Care Ethnoarchaeology Professor Name Role Phone Kathya Rivers DO Primary Care Provider [phone] Reason for Visit * Reason Onset Date Comments Test Results 08/09/202408/09 Encounter Details Date Type Department Care Team (Late st Contact Info) Description 08/09/2024 Telephone Family Practice [address] [place] [address] [place] [phone] Kathya Rivers DO [address] [place], [place] [id number] Test Results (08/09) Allergies Active Allergy Reactions Criticality Noted Date Comments Nickel Low 04/30/2021 Other Reaction(s): SKIN IRRITATION documented as of this encounter (statuses as of 08/10/2024) Medications Vitamin D 50 MCG (1999) Oral Tablet Take 2,000 Units by mouth daily. afternoon Active Calcium 600 MG Oral Tablet Take 1 Tablet by mouth daily. afternoon Active Biotin 2500 MCG Oral Capsule Take 1 Tablet by mouth in the morning. 3 Active Albuterol Sulfate HFA 108 (90 Base) MCG/ACT Inhalation Aerosol SolutionIndication s:Wheeze Inhale 2 Puffs by mouth every 6 hours as needed for Shortness of Breath or Wheezing (inhale 2 puffs by mouth every 6 hours as needed). 18 g 3 3 Active Aspirin 81 MG Oral Tablet Delayed Release Take 1 Tablet by mouth in the morning. 100 Tablet 11 4 Active Levothyroxine Sodium 50 MCG Oral Tablet (Levoxyl)Indicatio ns:Acquired hypothyroidism Take 1 Tablet by mouth in the morning. 1 daily. 90 Tablet 3 4 Active Amoxicillin 500 MG Oral Tablet Prior to dental appts 4 Active Amoxicillin-Pot Clavulanate 875-125 MG Oral Tablet (Augmentin)Indicat ions:Facial swelling Take 1 Tablet by mouth in the morning and 1 Tablet before bedtime. Do all this for 10 days. 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 SUMMARY: Goal: Establish test [...] contact study staff at ; after hours Hose Stripper via the [facility] hospital metal milling machine operator . Please contact study team before resolving/deleting from patients problem list. Study phone number: [phone]. Diagnosis changed due to Research Module. Go to [employer] for study details. Encounter for examination fo r normal comparison and control in clinical research program 09/09/2017 02/12/2022 Overview (09/30/2020): DO NOT DELETE - [facility] AGATHA Study: Project # [id number], Hose Stripper: Bayron Mcgee, MS, MPH. SUMMARY: Goal: Establish [...] contact study staff at ; after hours Hose Stripper via the [facility] hospital metal milling machine operator . - Please contact study team before resolving/deleting from patients problem list. Study phone number: [phone]. Diagnosis changed due to Research Module. Go to [employer] for study details. documented as of this encounter (statuses as of 08/10/2024) Immunizations Name Administration Dates Next Due COVID-19 mRNA, LNP-s, No Pre serve, 2-Dose Series (Moderna) 08/14/2020,07/17/2020 COVID-19, MRNA-LNP, PF, 50 M CG/0.5 mL, 12 YRS AND ABOVE, IM (MODERNA-Spikevax) 02/29/2024,04/26/2023 COVID-19, mRNA, LNP-s, PF, B ooster, 100mcg/0.5mg (Moderna) 01/31/2021 Covid-19, Mrna, Lnp-s, Pf, B ivalent, 30 Mcg, IM, 12 yrs and above ([employer]) 03/11/2022 Pneumococcal Conjugate Vacc, 13 Valent (Prevnar) 03/06/2016 Pneumococcal Polysaccharide PPV23 (Pneumovax) 02/28/2018 Seasonal Influenza Virus Vac cine, Unspecified Formulation 02/07/2021,02/28/2018 Seasonal Influenza, Quadriva lent Hd, 65+ Yrs 02/03/2023,02/26/2022,03/19/2020 Seasonal Influenza, Trivalen t, Adjuvanted, 65+ YRS, PF, (Fluad) 03/22/2024 TDAP (age 10 and older)(Boostrix) 03/06/2016 Zoster [...] Answer Date Recorded PHQ Adult Total Score 1 01/25/2024 Hunger Vital Sign Answer Date Recorded Within the past 12 months, y ou worried that your food would run out before you got the money to buy more. Never true 08/03/19 25 Within the past 12 months, t he food you bought just didn't last and you didn't have money to get more. Never true 08/03/2024 Childcare Answer Date Recorded Do you feel overwhelmed with taking care of a child, family member or friend? No 08/03/2024 Does your family need help f inding childcare? (Household - for ages 0-17 years) Not on file 08/03/2024 Clothing Answer Date Recorded Have you been unable to get clothing when it was really needed? No 08/03/2024 Is your family able to get c lothes or diapers when needed? (Household - for ages 0-17 years) Not on file 08/03/2024 Personal Safety Answer Date Recorded Do you feel unsafe or have concerns for your saf ety? No 08/03/2024 Do you have concerns for you r family's safety? (Household - for ages 0-17 years) Not on file 08/03/2024 Utilities Answer Date Recorded Do you have trouble paying y our heating, water, or electric bill? No 08/03/2024 Is your family able to pay t he heat, water, or electric bill? (Household - for ages 0-17 years) Not on file 08/03/2024 Does your family have access to good internet? (Household - for ages 0-17 years) Not on file 08/03/2024 Employment Status Answer Date Recorded Are you unemployed or without regular income? No 08/03/2024 Does the household have a re gular source of income? (Household - for ages 0-17 years) Not on file 08/03/2024 Social Connections Answer Date Recorded How often do you feel lonely or isolated from th ose around you? Never 08/03/2024 Financial Resource Strain Answer Date R ecorded Do you have any trouble payi ng for your medications, or do you think you might in the future? No 08/03/2024 Does your family have troubl e paying for medicine? (Household - for ages 0-17 years) Not on file 08/03/2024 Transportation Needs Answer Date Record ed Do you have trouble getting a ride to medical visits or work? (Adult - for ages 18 years and over) Not on file 08/03/2024 Does your family have a hard time getting a ride to doctors visits? (Household - for ages 0-17 years) Not on file 08/03/2024 Has lack of transportation k ept you from medical appointments, meetings, work, or from getting things needed for daily living? Check all that apply. No 08/03/2024 Do you (or your family) have trouble finding or paying for a ride (transportation)? (Household - for ages 0-17 years) Not on file 08/03/2024 Housing Stability Answer Date Recorded Do you currently live in a s helter or have no steady place to sleep at night? No 08/03/2024 Do you think you are at risk of becoming homeless? (Adult - for ages 18 years and over) Not on file 08/03/2024 Does your family worry about paying for your home or becoming homeless? (Household - for ages 0-17 years) Not on file 0 08/03/2024 Are you homeless or worried that you might be in the future? No 08/03/2024 Are you (or your family) tamir eless or worried that you might be in the future? (Household - for ages 0-17 years) Not on file Food Insecurity Answer Date Recorded Do you need food for this week? No 06/28/2023 Are you able to get enough f ood for your family? (Household - for ages 0-17 years) Not on file 06/28/2023 Does your family need food t his week? (Household - for ages 0-17 years) Not on file 06/28/2023 Do you always have enough fo od for your family? (Household - for ages 0-17 years) Not on file 06/28/2023 Food Insecurity Answer Date Recorded Within the past 12 months, y ou worried that your food would run out before you got the money to buy more. Never true 08/03/19 Within the past 12 months, t he food you bought just didn't last and you didn't have money to get more. Never true 08/03/2024 Do you need food for this week? No 08/03/2024 Comments No Sex and Gender Information Value Date Recorded Sex Assigned at Female 11/17/2021 9:01 PM EDT Legal Sex Female 7:00 AM EST Gender Identity Female 11/17/2021 9:01 PM EDT Sexual Orientation Straight 11/17/2021 9: 01 PM EDT documented as of this encounter Miscellaneous Notes * Telephone Encounter - Karly Obando OSA - 08/10/2024 10:33 AM EST Scheduled for a phone call tomorrow. * Telephone Encounter - Kathya Rivers DO - 08/09/2024 3:35 PM EST Noted. Please place on nurse phone call schedule on Wednesday to check in. * Telephone Encounter - Chantell Edwards LPN - 08/09/2024 2:55 PM EST No rash has popped out, pain is about the same. Throat is sore, face remains somewhat swollen. Is taking atb as directed. Thank you * Telephone Encounter - Kathya Rivers DO - 08/09/2024 7:57 AM EST Please let pt know: CT was essentially unremarkable. 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 How is she doing? No rash has popped out in the affected area correct? Her lab studies also looked ok. documented in this encounter Plan of Treatment Upcoming Encounters Date Type Department Care Team (Late st Contact Info) Description 08/11/2024 10:15 AM EST Nurse Only Family Practice [address] [facility] [address] [place] [phone] College, Nurse Fam Prac [address] [address] 12/06/2024 9:20 AM EDT Office Visit Family Practice [address] [place] [address] [address] [place] [phone] Kathya Rivers DO [address] [place] [address] 01/25/2025 8:30 AM EDT Office Visit Rheumatology [facility] [address] [phone] Omega Escalante CRNP [facility] [place] [address] Health Maintenance Due Date Last Done Comments COVID-19 Vaccine ( season) 2024 02/29/2024, 04/26/2023, 03/11/2022, Additional history exists DXA Scan 01/18/2025 01/18/2023, 08/0 12/2022, 11/28/2020 Adult Wellness Visit 01/24/2025 01/25/2024 Depression Screening 01/24/2025 01/25/2024 TSH 08/03/2025 08/03/2024, 06/14, 01/07/2023, Additional history exists DTap/Tdap Vaccines (2 - Td or Tdap) 03/06/2026 03/06/2016 Pneumococcal Vaccine: 50+ Years Completed 02/28/2018, 03/06/2016 Zoster Vaccines Completed 04/29/2020, 02/27/2020 Influenza Vaccine (FLU shot) Completed 02/2024, 02/03/2023, 02/26/2022, Additional history exists VITAMIN D LEVEL ONCE IN A LIFETIME-USE SMARTSET# [id number] Completed 08/03/2024, 01/07/2023, 11/25/2021 HPV (Gardasil) Vaccine Aged Out No lo nger eligible based on patient's age to complete this topic Hepatitis B Vaccine Aged Out No longe r eligible based on patient's age to complete this topic MENINGOCOCCAL (MENACTRA/MENVEO) Aged Out No longer eligible based on patient's age to complete this topic Meningitis B Vaccine (Bexsero/Trumemba) Aged Out No longer eligible based on patient's age to complete this topic documented as of this encounter Medical Devices Not on filedocumented as of this encounter Care Teams Ethnoarchaeology Professor Relationship Specialty Start Date End Date Kathya Rivers DO [address] [place] [address] PCP - General Family Medicine 12/24/23 documented as of this encounter
--- OUTSIDE RECORDS SUMMARY | 2024-08-12 02:04 | External Medical Summary | Summary of Care ---
Author Name Unknown Organization [facility] Address [address] [place] [address] Phone [phone] Care Team Providers Care [facility] Department Manager Name Role Phone Kathya Rivers DO Primary Care Provider [phone] Reason for Referral * Precert (Within 24 hrs (call dept; emergent)) - Authorized Specialty Diagnoses / Procedures Referred By Contac t Referred To Contact Radiology Diagnoses Facial swelling Procedures CT NECK WO CONTRAST Kathya Rivers DO [address] [place] [address] Phone: tel: fax: Referral ID Status Reason Start Date Expiration Date V isits Requested Visits Authorized [id number] Authorized 08/07/2024 999 999 Reason for Visit * Reason Comments Acute Encounter Details Date Type Department Care Team (Late st Contact Info) Description 08/07/2024 4:20 PM EST Office Visit Family Practice [address] [facility], [place] [address] [place] [address] Kathya Rivers DO [address] [place] [address] Facial swelling* Allergies Active Allergy Reactions Criticality Noted Date Comments Nickel Low 04/30/2021 Other Reaction(s): SKIN IRRITATION documented as of this encounter (statuses as of 08/08/2024) Medications Vitamin D 50 MCG (1999 UT) Oral Tablet Take 2,000 Units by mouth [...] as of this encounter (statuses as of 08/08/2024) Active Problems Problem Noted Date Diagnosed Date 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 SUMMARY: Goal: Establish test [...] contact study staff at ; after hours Higher Education Administrator via the [facility] borematic operator . Please contact study team before resolving/deleting from patients problem list. Study phone number: [phone]. Diagnosis changed due to Research Module. Go to [employer] for study details. Encounter for examination fo r normal comparison and control in clinical research program 09/09/2017 02/12/2022 Overview (09/30/2020): DO NOT DELETE - [facility] [place] Study: Project # [id number], Higher Education Administrator: Bayron Mcgee, MS, MPH. SUMMARY: Goal: Establish [...] contact study staff at ; after hours Higher Education Administrator via the [facility] borematic operator . - Please contact study team before resolving/deleting from patients problem list. Study phone number: [phone]. Diagnosis changed due to Research Module. Go to [employer] for study details. documented as of this encounter (statuses as of 08/08/2024) Immunizations Name Administration Dates Next Due COVID-19 [...] 08/03/2024 Does the household have a re lar source of income? (Household - for ages [...] PM EDT documented as of this encounter Last Filed Vital Signs Vital Sign Reading Time Taken Comments Blood Pressure 118/60 08/07/2024 4:43 PM EST Pulse 72 08/07/2024 4:43 PM EST Temperature 36.7 C (98.1 F) 08/07/2024 4:43 PM ES T Respiratory Rate - - Oxygen Saturation - - Inhaled Oxygen Concentration - - Weight 61 kg (134 lb 6.4 oz) 08/07/2024 4:43 PM EST Height - - Body Mass Index 24.78 08/03/2024 8:41 AM EST documented in this encounter Progress Notes * Kathya Rivers DO - 08/07/2024 4:28 PM EST Images from the original note were not included. Subjective Corin Lowe is a 78 year old female that presents for Acute History of Present Illness Corin Lowe is an 78 year old female who presents with headache, facial swelling, and difficulty chewing. She experiences headaches and facial swelling, particularly on one side, extending from her eyes toher ear and down her face. The pain is severe enough to disrupt her sleep, requiring her to take two Tylenol for relief. These symptoms have been particularly severe over the past two days. She has difficulty chewing, struggling to open her mouth for a grilled cheese sandwich. She also reports throat pain and swelling in the affected area, describing it as a 'whole quadrant' of her faceand head. She mentions experiencing a fever overnight, indicated by waking up in a damp bed, and feeling coldthroughout the day despite mild weather. No ear drainage is noted, but she felt drainage at the back of her throat yesterday, which did not alleviate her symptoms. She has a history of ear infections as a young adult, often experiencing double ear infections, butdenies any recent ear infections or dental issues on the affected side. She has not worn her hearing aids for the past few days due to discomfort, although she is unsure if it is painful to insert them. Review of Systems Constitutional: Negative for chills, fatigue, fever and unexpected weight change. HENT: Positive for ear pain. As per HPI Respiratory: Negative for cough, chest tightness, shortness of breath and wheezing. Cardiovascular: Negative for chest pain, palpitations and leg swelling. Gastrointestinal: Negative for abdominal pain, constipation, diarrhea, nausea and vomiting. Musculoskeletal: Negative for arthralgias, gait problem and joint swelling. Skin: Negative for color change, pallor and rash. Objective Vitals: 08/07/24 1643 Temp: 98.1 F (36.7 C) Pulse: 72 BP: 118/60 Physical Exam Physical Exam Constitutional: General: She is not in acute distress. Appearance: She is well-developed. HENT: Head: Comments: Some swelling side of right face, tenderness along mastoid Right Ear: Tympanic membrane, ear canal and external ear normal. Left Ear: Tympanic membrane, ear canal and external ear normal. Cardiovascular: Rate and Rhythm: Normal rate and regular rhythm. Heart sounds: Normal heart sounds. No murmur heard. No friction rub. No gallop. Pulmonary: Effort: Pulmonary effort is normal. No respiratory distress. Breath sounds: Normal breath sounds. No wheezing or rales. Abdominal: General: Bowel sounds are normal. There is no distension. Palpations: Abdomen is soft. Tenderness: There is no abdominal tenderness. There is no guarding. Musculoskeletal: General: No tenderness or deformity. Normal range of motion. Skin: General: Skin is warm and dry. Coloration: Skin is not pale. Findings: No erythema or rash. Neurological: Mental Status: She is alert and oriented to person, place, and time. I have reviewed the following results: Results LABS COVID-19: negative on home test Assessment and Plan Assessment & Plan Facial Swelling and Pain Severe pain and swelling on the right side of the face, including the ear and throat, with difficulty opening mouth. No ear drainage. Possible fever and night sweats. Suspected parotid gland infection. -Order stat CT scan to evaluate the area. -Start Augmentin, to be taken twice daily with food. Headache Global headache, severe enough to disrupt sleep. -Continue monitoring symptoms, reassess after CT scan results and response to antibiotic therapy. General Health Maintenance -Continue monitoring for COVID-19 symptoms, patient has had two negative tests in recent days. (R22.0) Facial swelling (primary encounter diagnosis) Plan: CT NECK WO CONTRAST, Amoxicillin-Pot Clavulanate 875-125 MG Oral Tablet (Augmentin) As above Wrap-Up Follow-up: await results Time: I spent a total of 30-39 minutes (exact time 33 mins) on the date of service in preparation, delivery, and documentation of the care provided to Corin Lowe excluding any time spent in the performance of separately billed services. Text in this note was generated using an ambient documentation service. I discussed the use of a device to record and summarize our discussion today. All persons present during the encounter consented to its use. documented in this encounter Plan of Treatment Upcoming Encounters Date Type Department Care Team (Late st Contact Info) Description 12/06/2024 9:20 AM EDT Office Visit Family Practice [address] [facility] [address] [place] [address] Kathya Rivers DO [address] [place] [address] 01/25/2025 8:30 AM EDT Office Visit Rheumatology [facility] [address] [place] [phone] Omega Escalante CRNP [address] [facility], [place] [address] Health Maintenance Due Date Last Done Comments COVID-19 Vaccine ( season) 2024 02/29/2024, 04/26/2023, 03/11/2022, Additional history exists DXA Scan 01/18/2025 01/18/2023, 12/2022, 11/28/2020 Adult Wellness Visit 01/24/2025 01/25/2024 Depression Screening 01/24/2025 01/25/2024 TSH 08/03/2025 08/03/2024, 06/14, 01/07/2023, Additional history exists DTap/Tdap Vaccines (2 - Td or Tdap) 03/06/2026 03/06/2016 Pneumococcal Vaccine: 50+ Years Completed 02/28/2018, 03/06/2016 Zoster Vaccines Completed 04/29/2020, 02/27/2020 Influenza Vaccine (FLU shot) Completed 02/2024, 02/03/2023, 02/26/2022, Additional history exists VITAMIN D LEVEL ONCE IN A LIFETIME-USE SMARTSET# [id number] Completed 08/03/2024, 01/07/2023, 11/25/2021 HPV (Gardasil) Vaccine [...] Not on filedocumented as of this encounter Procedures Procedure Name Priority Date/Time Associated Diagnosis Comments CT NECK WO CONTRAST STAT 08/07/2024 5 :23 PM EST Facial swelling documented in this encounter Results * CT NECK WO CONTRAST (08/07/2024 5:23 PM EST) Anatomical Region Laterality Modality Neck, Head Computed Tomogra phy 08/07/2024 6:21 PM EST Impressions 08/07/2024 6:19 PM EST IMPRESSION Grossly unremarkable appearance of the parotid glands, although evaluation is limited by absence of intravenous contrast and use of open mouth view resulting in extensive overlying streak artifact from adjacent dental hardware. No sialolithiasis or salivary gland mass. Mild/moderate bilateral temporomandibular joint arthrosis. Additional findings as described. Narrative 08/07/2024 6:[address] NECK WO CONTRAST - 08/07/2024 5:23 pm HISTORY Right-sided jaw swelling TECHNIQUE CT neck was performed without contrast. COMPARISON Neck sonogram 12/31/2021 FINDINGS Open mouth view resulting in extensive streak artifact over the bilateral parotid gland secondary to metallic dental hardware. Grossly unremarkable appearance of the parotid and submandibular glands. No appreciable asymmetric enlargement or increased attenuation involving the right parotid gland, although evaluation is limited by overlying streak artifact and absence of intravenous contrast. No sialolithiasis or evidence of salivary gland mass. Unremarkable appearance of the Lainey's and Stensen's ducts. No masslike contour abnormality along the aerodigestive tract. Midline position of the vocal folds. Normal thickness of the epiglottis. No cervical lymphadenopathy. Heterogeneous appearance of the thyroid gland without discrete nodularity. Atherosclerotic calcifications along the carotid bifurcations. The visualized intracranial contents are unremarkable. Bilateral lens replacement. Mild polypoid mucosal thickening along the floor of the maxillary sinuses. The mastoid air cells are clear. Mild/moderate bilateral temporomandibular joint arthrosis with flattening of the mandibular condylar heads. Physiologic anterior subluxation of the mandibular condylar heads on open mouth view. Multilevel degenerative changes of the cervical spine. Generalized osseous demineralization. Biapical pulmonary scarring. Procedure Note Christiano Fraire MD - 08/07/[address] NECK WO CONTRAST - 08/07/2024 5:23 pm HISTORY Right-sided jaw swelling TECHNIQUE CT neck was performed without contrast. COMPARISON Neck sonogram 12/31/2021 FINDINGS Open mouth view resulting in extensive streak artifact over the bilateralparotid gland secondary to metallic dental hardware. Grossly unremarkable appearance of the parotid and submandibular glands.No appreciable asymmetric enlargement or increased attenuation involvingthe right parotid gland, although evaluation is limited by overlyingstreak artifact and absence of intravenous contrast. No sialolithiasis orevidence of salivary gland mass. Unremarkable appearance of the Lainey'sand Stensen's ducts. No masslike contour abnormality along the aerodigestive tract. Midlineposition of the vocal folds. Normal thickness of the epiglottis. Nocervical lymphadenopathy. Heterogeneous appearance of the thyroid glandwithout discrete nodularity. Atherosclerotic calcifications along thecarotid bifurcations. The visualized intracranial contents are unremarkable. Bilateral lensreplacement. Mild polypoid mucosal thickening along the floor of themaxillary sinuses. The mastoid air cells are clear. Mild/moderatebilateral temporomandibular joint arthrosis with flattening of themandibular condylar heads. Physiologic anterior subluxation of themandibular condylar heads on open mouth view. Multilevel degenerative changes of the cervical spine. Generalizedosseous demineralization. Biapical pulmonary scarring. IMPRESSION IMPRESSION Grossly unremarkable appearance of the parotid glands, although evaluationis limited by absence of intravenous contrast and use of open mouth viewresulting in extensive overlying streak artifact from adjacent dentalhardware. No sialolithiasis or salivary gland mass. Mild/moderate bilateral temporomandibular joint arthrosis. Additional findings as described. Kathya Rivers DO RAD CT Final Result documented in this encounter Visit Diagnoses Diagnosis Facial swelling- Primary Swelling, mass, or lump in head and neck documented in this encounter Care Teams [place] Department Manager Relationship Specialty Start Date End Date Kathya Rivers DO [address] [place] [address], [place] [address] PCP - General Family Medicine 12/24/23 documented as of this encounter
--- OUTSIDE RECORDS SUMMARY | 2024-08-12 02:04 | External Medical Summary | Summary of Care ---
Author Name Unknown Organization [facility] Address [address] [place] [address] Phone [phone] Care Team Providers Care Marine Engineer Name Role Phone Kathya Rivers DO Primary Care Provider [phone] Reason for Visit * Reason Comments Follow Up Encounter Details Date Type Department Care Team (Latest Contact Info) Description 08/03/2024 8:40 AM EST Office Visit Family Practice [facility], [place] [address] [place] [address] Kathya Rivers DO [address] [place] [address] Acquired hypothyroidism*; Senile osteoporosis; Screening for cardiovascular condition Allergies Active Allergy Reactions Criticality Noted Date Comments Nickel Low 04/30/2021 Other Reaction(s): SKIN IRRITATION documented as of this encounter (statuses as of 08/03/2024) Medications Vitamin D 50 MCG (1999 UT) [...] Tablet Prior to dental appts 4 Active documented as of this encounter (statuses as of 08/03/2024) Active Problems Problem Noted Date Diagnosed Date 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 SUMMARY: Goal: Establish test [...] contact study staff at ; after hours Survey Chief via the [facility] projector booth operator . Please contact study team before resolving/deleting from patients problem list. Study phone number: [phone]. Diagnosis changed due to Research Module. Go to Snapshot for study details. Encounter for examination fo r normal comparison and control in clinical research program 09/09/2017 02/12/2022 Overview (09/30/2020): DO NOT DELETE - [facility] DETECT Study: Project # [id number], Survey Chief: Bayron Mcgee, MS, MPH. SUMMARY: Goal: Establish [...] contact study staff at ; after hours Survey Chief via the [facility] projector booth operator . - Please contact study team before resolving/deleting from patients problem list. Study phone number: [phone]. Diagnosis changed due to Research Module. Go to Snapshot for study details. documented as of this encounter (statuses as of 08/03/2024) Immunizations Name Administration Dates Next Due COVID-19 [...] Passive Smoke Exposure: Past Smokeless Tobacco: Never Tobacco Cessation:Counseling Given: Not Answered Alcohol Use Standard Drinks/Week Comments Yes 0 [...] Sign Reading Time Taken Comments Blood Pressure 126/70 08/03/2024 8:41 AM EST Pulse 70 08/03/2024 8:41 AM EST Temperature 36.4 C (97.5 F) 08/03/2024 8:41 AM ES T Respiratory Rate 14 08/03/2024 8:41 AM EST Oxygen Saturation 100% 08/03/2024 8:41 AM EST Inhaled Oxygen Concentration - - Weight 60.6 kg (133 lb 11.2 oz) 08/03/2024 8:41 AM EST Height 156.8 cm (5' 1.75") 08/03/2024 8:41 AM ES T Body Mass Index 24.65 08/03/2024 8:41 AM EST documented in this encounter Progress Notes * Zuleyka Cardenas LPN - 08/03/2024 9:17 AM EST LAB DRAWN AND SENT TO [facility]. * Kathya Rivers DO - 08/03/2024 8:41 AM EST Images from the original note were not included. Subjective Corin Lowe is a 78 year old female that presents for Follow Up History of Present Illness Corin Lowe is an 78 year old female who presents for regular return. She has a sore lump on her left leg following an escalator incident. She was accompanied by her . Approximately six weeks ago, she sustained an injury to her left leg when her lost his balance on an escalator and fell onto her, resulting in a sore lump. The initial trauma caused significant bruising and bleeding, which required a Band-Aid. Over time, the bleeding ceased, and the scab resolved, but the lump persists. Initially, the area was very painful, hindering activities such as showering and putting on socks. The pain has since decreased, though the area remains tender. She has been cautious with the leg and reports no current pain. The right leg was unaffected. Recently, she noticed swelling on the right side of her neck, which she describes as a swollen gland. This began yesterday and is accompanied by a headache lasting three days. She took Tylenol last night to aid sleep. There is no mucus production, cold symptoms, or recent illness exposure, althoughher had COVID five weeks ago, which she did not contract. Her eyes feel itchy and uncomfortable, but there is no nasal congestion. She has not observed similar swelling on the left side of her neck. Review of Systems Constitutional: Negative for chills, fatigue, fever and unexpected weight change. HENT: As per HPI Respiratory: Negative for cough, chest tightness, shortness of breath and wheezing. Cardiovascular: Negative for chest pain, palpitations and leg swelling. Gastrointestinal: Negative for abdominal pain, constipation, diarrhea, nausea and vomiting. Musculoskeletal: Negative for arthralgias, gait problem and joint swelling. As per HPI Skin: Negative for color change, pallor and rash. Objective Vitals: 08/03/24 0841 Temp: 97.5 F (36.4 C) Pulse: 70 Resp: 14 SpO2: 100% BP: 126/70 BMI: 24.67 Physical Exam Physical Exam Constitutional: General: She is not in acute distress. Appearance: She is well-developed. Cardiovascular: Rate and Rhythm: Normal rate and [...] tenderness. There is no guarding. Musculoskeletal: General: Deformity (lump of left gordon) present. No tenderness. Normal range of motion. Lymphadenopathy: Cervical: Cervical adenopathy (some minimal cervical lymphadenopathy in anterior chain) present. Skin: General: Skin is warm and dry. Coloration: Skin is not pale. Findings: No erythema or rash. Neurological: Mental Status: She is alert and oriented to person, place, and time. I have reviewed the following results: Results Assessment and Plan Assessment & Plan Leg Hematoma Resolving hematoma on left leg from escalator fall 6 weeks ago. No current pain, but residual lump and tenderness. Discussed the natural course of hematoma resolution. -Expect continued improvement over the next few months. Possible Upper Respiratory Infection New onset of right-sided neck tenderness and headache for 3 days. No mucus production or stuffiness. Mild fluid in right ear on exam. -Monitor symptoms and contact office if symptoms persist or worsen. General Health Maintenance -Order blood work as requested by Dr. Zendejas's group. -Plan for follow-up visit in the summer. (E03.9) Acquired hypothyroidism (primary encounter diagnosis) Plan: TSH WITH FREE T4 IF INDICATED, COMPREHENSIVE METABOLIC PANEL, CBC WITH WBC DIFFERENTIAL, TSH WITH FREE T4 IF INDICATED, COMPREHENSIVE METABOLIC PANEL, CBC WITH WBC DIFFERENTIAL Pt will complete lab studies. Will await results. (M81.0) Senile osteoporosis Plan: 25-HYDROXY VITAMIN D, CANCELED: CALCIUM Pt will complete lab studies. Follows with rheumatology. (Z13.6) Screening for cardiovascular condition Plan: LIPID PANEL WITH DIRECT LDL IF TG IS HIGH, LIPID PANEL WITH DIRECT LDL IF TG IS HIGH Pt will complete lipid panel. Wrap-Up Follow-up: 4 months Time: I spent a total of 30-39 minutes (exact time 31 mins) on the date of service in preparation, delivery, and documentation of the care provided to Corin Lowe excluding any time spent in the performance of separately billed services. Text in this note was generated using an [employer] documentation service. I discussed the use of a device to record and summarize our discussion today. All persons present during the encounter consented to its use. * Chantell Edwards LPN - 08/03/2024 8:38 AM EST Feels tenderness right side of throat started yesterday. Also, frontal headaches started about a week ago. Took a tylenol last pm and did help. documented in this encounter Plan of Treatment Upcoming Encounters Date Type Department Care Team (Late st Contact Info) Description 12/06/2024 9:20 AM EDT Office Visit Family Practice [address] [place] [address] [address] [place] [address] Kathya Rivers DO [address] [place] [address] 01/25/2025 8:30 AM EDT Office Visit Rheumatology [facility] [address] [place] [phone] Omega Escalante CRNP [address] [place] [phone] Pending Results Name Type Priority Associated Diagnoses Date /Time TSH WITH FREE T4 IF INDICATED Lab Routine Acquired hypothyroidism 08/03/2024 9:15 AM EST LIPID PANEL WITH DIRECT LDL IF TG IS HIGH Lab Routine Screening for cardiovascular condition 08/03/2024 9:15 AM EST COMPREHENSIVE METABOLIC PANEL Lab Routine Acquired hypothyroidism 08/03/2024 9:15 AM EST CBC WITH WBC DIFFERENTIAL Lab Routine Acquired hypothyroidism 08/03/2024 9:15 AM EST 25-HYDROXY VITAMIN D Lab Routine Senile osteoporosis 08/03/2024 9:15 AM EST CBC Lab Routine Acquired hypothyroidism 08/03/2024 9:15 AM EST DIFFERENTIAL, AUTOMATED Lab Routine Acquired hypothyroidism 08/03/2024 9:15 AM EST Scheduled Orders Name Type Priority Associated Diagnoses Orde r Schedule TSH WITH FREE T4 IF INDICATED Lab Routine Acquired hypothyroidism Expected: 08/03/2024 (Approximate), Expires: 08/03/2025 LIPID PANEL WITH DIRECT LDL IF TG IS HIGH Lab Routine Screening for cardiovascular condition Expected: 08/03/2024, Expires: 08/03/2025 COMPREHENSIVE METABOLIC PANEL Lab Routine Acquired hypothyroidism Expected: 08/03/2024 (Approximate), Expires: 08/03/2025 CBC WITH WBC DIFFERENTIAL Lab Routine Acquired hypothyroidism Expected: 08/03/2024 (Approximate), Expires: 08/03/2025 Health Maintenance Due Date Last Done Comments TSH 06/28/2024 06/28/2023, 12/13, 07/02/2022, Additional history exists COVID-19 Vaccine ( season) 2024 02/29/2024, 04/26/2023, 03/11/2022, Additional history exists DXA Scan 01/18/2025 01/18/2023, 0812/2022, 11/28/2020 Adult Wellness Visit 01/24/2025 01/25/2024 Depression Screening 01/24/2025 01/25/2024 DTap/Tdap Vaccines (2 - Td or Tdap) 03/06/2026 03/06/2016 Pneumococcal Vaccine: 50+ Years Completed 02/28/2018, 03/06/2016 Zoster Vaccines Completed 04/29/2020, 02/27/2020 VITAMIN D LEVEL ONCE IN A LIFETIME-USE SMARTSET# [id number] Completed 01/07/2023, 11/25/2021 Influenza Vaccine (FLU shot) Completed 02/2024, 02/03/2023, 02/26/2022, Additional history exists HPV (Gardasil) Vaccine Aged Out No lo [...] as of this encounter Visit Diagnoses Diagnosis Acquired hypothyroidism- Primary Unspecified hypothyroidism Senile osteoporosis Screening for cardiovascular condition Screening for other and unspecified cardiovascular conditions documented in this encounter Care Teams Marine Engineer Relationship Specialty Start Date End Date Kathya Rivers DO [address] [place] [address] PCP - General Family Medicine 12/24/23 documented as of this encounter
--- OUTSIDE RECORDS SUMMARY | 2024-08-12 02:04 | External Medical Summary ---
Author Name Unknown Address Unknown Organization [id number]:[place] [place] [address] [facility] [address] Laboratory Report Ordering Provider Test Date Status SHERITA AUSTINASHLEYYG 08/03/2024 09:15:33 Final Observation Date Value Abnormality Reference (Units ) Status Triglyceride 08/03/2024 09:15:33 58 <=174 ( mg/dL) Final Triglyceride Reference Range s (mg/dL):
<150 Acceptable
150-174 Borderline high
175-499 High
>=500 Very high Cholesterol 08/03/2024 09:15:33 231 Above high normal <200 (mg/dL) Final Total Cholesterol Reference Ranges (mg/dL):
<200 Desirable
200-239 Borderline high
>=240 High HDL 08/03/2024 09:15:33 104 >49 (mg/dL ) Final HDL Cholesterol Reference Ra nges (mg/dL):
>=60 High (Desirable)
<50 Low (Undesirable) For Females
<40 Low (Undesirable) For Males NON-HDL CHOLESTEROL 08/03/2024 09:15:33 127 <=159 (mg/dL) Final Non-HDL Cholesterol Referenc e Range (mg/dL):
<100 Target level for high risk ASCVD patient
<130 Optimal for general population
130-159 Near optimal for general population
160-189 Borderline High
190-219 High
>=220 Very High LDL, (calculated) 08/03/2024 09:15:33 115 <= 129 (mg/dL) Final LDL Cholesterol Reference Ra nges (mg/dL):
<70 Target level for high risk ASCVD patient
<100 Optimal for general population
100-129 Near optimal for general population
130-159 Borderline high
160-189 High
>=190 Very high Performing Location [facility] [place] [place] [address] [facility] [address]
--- OUTSIDE RECORDS SUMMARY | 2024-08-12 02:04 | External Medical Summary ---
Author Name Unknown Address Unknown Organization [id number]:LABORATORY [facility] [place] - [address] [facility] [address] Laboratory Report Ordering Provider Test Date Status JASMYNE AUSTIN 08/03/2024 09:15:33 Final Observation Date Value Abnormality Reference (Units ) Status BUN 08/03/2024 09:15:33 19 6-20 (mg/dL) Final Creatinine 08/03/2024 09:15:33 0.8 0.5-1.0 (mg/dL) Final Glomerular filtration rate/1.73 sq M.predicted [Volume Rate/Area] in Serum, Plasma or Blood by Creatinine-based formula (CKD-EPI) 08/03/2024 09:15:33 80 >=60 (mL/min) Final eGFR is calculated based on the CKD-EPI 2020 equation. Sodium 08/03/2024 09:15:33 141 135-146 (m mol/L) Final Potassium 08/03/2024 09:15:33 4.4 3.5-5.1 (m mol/L) Final Cl 08/03/2024 09:15:33 105 98-107 (mm ol/L) Final CO2 08/03/2024 09:15:33 27 22-32 (mmo l/L) Final Anion gap 08/03/2024 09:15:33 9 7-15 (mmol /L) Final Glucose 08/03/2024 09:15:33 81 70-120 (mg /dL) Final Albumin 08/03/2024 09:15:33 4.1 3.8-5.0 (g /dL) Final AST (Aspartate aminotransferase) 08/03/2024 09:15:33 21 10-35 (U/L) Final Alk Phos 08/03/2024 09:15:33 84 35-130 (U/ L) Final Bilirubin, Total 08/03/2024 09:15:33 0.4 <=1 .2 (mg/dL) Final Calcium 08/03/2024 09:15:33 9.5 8.4-10.2 ( mg/dL) Final Protein 08/03/2024 09:15:33 6.4 6.0-8.3 (g /dL) Final ALT (Alanine aminotransferase) 08/03/2024 09:15:33 18 10-35 (U/L) Final Performing Location LABORATORY [facility] [place] - [facility] [address] [facility] [address]
--- OUTSIDE RECORDS SUMMARY | 2024-08-12 02:04 | External Medical Summary | Summary of Care ---
Author Name Unknown Organization [facility] Address [address] [place] [address] Phone [phone] Care Team Providers Care Nuclear Medicine Technologist Name Role Phone Kathya Rivers DO Primary Care Provider [phone] Reason for Referral * Precert (Within 24 hrs (call dept; emergent)) - Authorized Specialty Diagnoses / Procedures Referred By Contac t Referred To Contact Radiology Diagnoses Facial swelling Procedures CT NECK WO CONTRAST Kathya Rivers DO [address] [place] [address] Phone: tel: fax: Referral ID Status Reason Start Date Expiration Date V isits Requested Visits Authorized [id number] Authorized 08/07/2024 999 999 Reason for Visit * Reason Comments Acute Encounter Details Date Type Department Care Team (Late st Contact Info) Description 08/07/2024 4:20 PM EST Office Visit Family Practice 65 [facility] [place] [address] [place] [address] Kathya Rivers DO [address] [place] [address] Facial swelling* Allergies Active Allergy Reactions Criticality Noted Date Comments Nickel Low 04/30/2021 Other Reaction(s): SKIN IRRITATION documented as of this encounter (statuses as of 08/11/2024) Medications Vitamin D 50 MCG (1999 UT) [...] as of this encounter (statuses as of 08/11/2024) Active Problems Problem Noted Date Diagnosed Date 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 SUMMARY: Goal: Establish test [...] contact study staff at ; after hours Riding Coach via the [facility] chamfering machine operator . Please contact study team before resolving/deleting from patients problem list. Study phone number: [phone]. Diagnosis changed due to Research Module. Go to Snapshot for study details. Encounter for examination fo r normal comparison and control in clinical research program 09/09/2017 02/12/2022 Overview (09/30/2020): DO NOT DELETE - [facility] Study: Project # [id number], Riding Coach: Bayron Mcgee, MS, MPH. SUMMARY: Goal: Establish [...] contact study staff at ; after hours Riding Coach via the [facility] chamfering machine operator . - Please contact study team before resolving/deleting from patients problem list. Study phone number: [phone]. Diagnosis changed due to Research Module. Go to [employer] for study details. documented as of this encounter (statuses as of 08/11/2024) Immunizations Name Administration Dates Next Due COVID-19 [...] Only Family Practice [address] [facility] [address] [place] [phone] College, Nurse Fam Prac [address] [place] [address] 12/06/2024 9:20 AM EDT Office Visit Family Practice [facility] [address] [place] [phone] Kathya Rivers DO [address] [place] [address] 01/25/2025 8:30 AM EDT Office Visit Rheumatology [facility] [address] [place] [phone] Omega Escalante CRNP [address] [place] [address] Health Maintenance Due Date Last Done Comments [...] D LEVEL ONCE IN A LIFETIME-USE SMARTSET# [id number] Completed 08/03/2024, 01/07/2023, 11/25/2021 HPV (Gardasil) Vaccine [...] neck documented in this encounter Care Teams Nuclear Medicine Technologist Relationship Specialty Start Date End Date Kathya Rivers DO [address] [place] [address] PCP - General Family Medicine 12/24/23 documented as of this encounter
--- OUTSIDE RECORDS SUMMARY | 2024-08-12 02:04 | External Medical Summary ---
Author Name Unknown Address Unknown Organization K01:[facility] [place] [address] [place] [address] Laboratory Report Ordering Provider Test Date Status JASMYNE AUSTIN 08/03/2024 09:15:33 Final Observation Date Value Abnormality Reference (Units ) Status TSH 08/03/2024 09:15:33 1.38 0.27-4.20 (uIU/mL) Final Performing Location [facility] [place] [address] [place] [address]
--- OUTSIDE RECORDS SUMMARY | 2024-08-12 02:04 | External Medical Summary ---
Author Name Unknown Address Unknown Organization K01:[facility] [place] - [address] [facility] [address] Laboratory Report Ordering Provider Test Date Status JASMYNE AUSTIN 08/03/2024 09:15:33 Final Observation Date Value Abnormality Reference (Units ) Status SYNC LEUKOCYTES IN BLOOD BY AUTOMATED COUNT 08/03/2024 09:15:33 6.32 4.00-10.80 (K/uL) Final Segs 08/03/2024 09:15:33 77.8 Above high normal 40.0-75.0 (%) Final Lymphs % 08/03/2024 09:15:33 9.2 Below low normal 18.0-42.0 (%) Final Monos 08/03/2024 09:15:33 8.5 1.0-11.0 (%) Final Eosinophils 08/03/2024 09:15:33 3.5 0.0-6.0 (%) Final Basos 08/03/2024 09:15:33 0.8 0.0-2.0 (%) Final Immature Granulocyte, Percent 08/03/2024 09:15:33 0.2 0.0-2.0 (%) Final Absolute Segs 08/03/2024 09:15:33 4.92 1.80-7.70 (K/uL) Final Lymphs, absolute 08/03/2024 09:15:33 0.58 Below low normal 1.00-4.80 (K/ul) Final Monos, Abs 08/03/2024 09:15:33 0.54 0.00-1.10 (K/uL) Final Eos, Abs 08/03/2024 09:15:33 0.22 0.00-0.70 (K/uL) Final Basos, Abs 08/03/2024 09:15:33 0.05 0.00-0.20 (K/uL) Final Immature Granulocytes, Number 08/03/2024 09:15:33 0.01 0.00-0.20 (K/uL) Final Performing Location [facility] [place] - [facility] [address] [facility] [address]
--- OUTSIDE RECORDS SUMMARY | 2024-08-12 02:05 | External Medical Summary | Summary of Care ---
Author Name Unknown Organization [facility] Address [address] [place] [address] Phone [phone] Care Team Providers Care Cover Operator Name Role Phone Kathya Rivers Primary Care Provider Encounter Details Date Type Department Care Team (Late st Contact Info) Description 07/05/2024 Population Health External Data Unspecified Department Allergies Active Allergy Reactions Criticality Noted Date Comments Nickel Low 04/30/2021 Other Reaction(s): SKIN IRRITATION documented as of this encounter (statuses as of 07/05/2024) Medications Vitamin D 50 MCG (1999) Oral [...] as of this encounter (statuses as of 07/05/2024) Active Problems Problem Noted Date Diagnosed Date 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 SUMMARY: Goal: Establish test [...] contact study staff at ; after hours Virtual Customer Assistant via the [facility] blacksmith hammer operator . Please contact study team before resolving/deleting from patients problem list. Study phone number: [phone]. Diagnosis changed due to Research Module. Go to Snapshot for study details. Encounter for examination fo r normal comparison and control in clinical research program 09/09/2017 02/12/2022 Overview (09/30/2020): DO NOT DELETE - [employer] DETECT Study: Project # [id number], Virtual Customer Assistant: Bayron Mcgee, MS, MPH. SUMMARY: Goal: Establish [...] contact study staff at ; after hours Virtual Customer Assistant via the [facility] hospital blacksmith hammer operator . - Please contact study team before resolving/deleting from patients problem list. Study phone number: [phone]. Diagnosis changed due to Research Module. Go to Snapshot for study details. documented as of this encounter (statuses as of 07/05/2024) Immunizations Name Administration Dates Next Due COVID-19 [...] money to get more. Never true 06/28/2023 Childcare Answer Date Recorded Do you feel overwhelmed with taking care of a child, family member or friend? No 06/28/2023 Does your family need help f inding childcare? (Household - for ages 0-17 years) Not on file 06/28/2023 Clothing Answer Date Recorded Have you been unable to get clothing when it was really needed? No 06/28/2023 Is your family able to get c lothes or diapers when needed? (Household - for ages 0-17 years) Not on file 06/28/2023 Personal Safety Answer Date Recorded Do you feel unsafe or have concerns for your saf ety? No 06/28/2023 Do you have concerns for you r family's safety? (Household - for ages 0-17 years) Not on file 06/28/2023 Utilities Answer Date Recorded Do you have trouble paying y our heating, water, or electric bill? No 06/28/2023 Is your family able to pay t he heat, water, or electric bill? (Household - for ages 0-17 years) Not on file 06/28/2023 Does your family have access to good internet? (Household - for ages 0-17 years) Not on file 06/28/2023 Employment Status Answer Date Recorded Are you unemployed or without regular income? No 06/28/2023 Does the household have a re gular source of income? (Household - for ages 0-17 years) Not on file 06/28/2023 Social Connections Answer Date Recorded How often do you feel lonely or isolated from th ose around you? Never 06/28/2023 Financial Resource Strain Answer Date R ecorded Do you have any trouble payi ng for your medications, or do you think you might in the future? No 06/28/2023 Does your family have troubl e paying for medicine? (Household - for ages 0-17 years) Not on file 06/28/2023 Transportation Needs Answer Date Record ed READ ONLY Do you have troubl e getting a ride to medical visits or work? Never True 06/28/2023 Does your family have a hard time getting a ride to doctors visits? (Household - for ages 0-17 years) Not on file 06/28/2023 Has lack of transportation k ept you from medical appointments, meetings, work, or from getting things needed for daily living? Check all that apply. (Adult - for ages 18 years and over) Not on file 06/28/2023 Do you (or your family) have trouble finding or paying for a ride (transportation)? (Household - for ages 0-17 years) Not on file 06/28/2023 Housing Stability Answer Date Recorded Do you currently live in a s helter or have no steady place to sleep at night? No 06/28/2023 READ ONLY Do you think you a re at risk of becoming homeless? No 06/28/2023 Does your family worry about paying for your home or becoming homeless? (Household - for ages 0-17 years) Not on file 0 06/28/2023 Are you homeless or worried that you might be in the future? (Adult - for ages 18 years and over) Not on file Are you (or your family) tamir eless [...] ages 0-17 years) Not on file 06/28/2023 Comments No Sex and Gender Information Value Date Recorded Sex Assigned at Female 11/17/2021 9:01 PM EDT Legal Sex Female 7:00 AM EST Gender Identity Female 11/17/2021 9:01 PM EDT Sexual Orientation Straight 11/17/2021 9: 01 PM EDT documented as of this encounter Plan of Treatment Upcoming Encounters Date Type Department Care Team (Late st Contact Info) Description 08/03/2024 8:40 AM EST Office Visit Family Practice [address] [place] [address] [place] [address] Kathya Rivers DO [address] [facility] [place] [address] 01/25/2025 8:30 AM EDT Office Visit Rheumatology [facility] [address] [place] [id number] Omega Escalante CRNP [address] [place] [address] Health Maintenance Due Date Last Done Comments TSH 06/28/2024 06/28/2023, 12/13, 07/02/2022, Additional history exists DXA Scan 01/18/2025 01/18/2023, 12/2022, 11/28/2020 Adult Wellness Visit 01/24/2025 01/25/2024 Depression Screening 01/24/2025 01/25/2024 DTap/Tdap Vaccines (2 - Td or Tdap) 03/06/2026 03/06/2016 Pneumococcal Vaccine: 50+ Years Completed 02/28/2018, 03/06/2016 Zoster Vaccines Completed 04/29/2020, 02/27/2020 VITAMIN D LEVEL ONCE IN A LIFETIME-USE SMARTSET# [id number] Completed 01/07/2023, 11/25/2021 COVID-19 Vaccine Completed 02/29/2024, , 03/11/2022, Additional history exists Influenza Vaccine (FLU shot) Completed 02/2024, 02/03/2023, [...] filedocumented as of this encounter Care Teams Cover Operator Relationship Specialty Start Date End Date Kathya Rivers DO [address] [place] [address] PCP - General Family Medicine 12/24/23 documented as of this encounter
--- NOTE | 2024-08-12 02:34 | History & Physical Report ---
Date of Service August 11, 2024 Assessment & Plan (1) Headache: Plan: 78-year-old female with past med history significant for hypothyroidism, history of Aline's thyroiditis, dermatitis, senile osteoporosis was having fevers for last 9 to 10 days associated with a headache and neck pains. Patient went to PCP office on 08/07/2024 with facial swelling headache and difficulty chewing. She was having difficulty chewing struggle to open her mouth. Patient was started on Augmentin. CT of the neck was ordered which was unremarkable except showed mild/moderate bilateral temporomandibular joint arthrosis. Yesterday also had temperature spike. Still having headache ,whole front of the face was hurting and eyes were hurting. So came to the ER today. CT head was done which was negative. Bio fire was negative. Labs are okay. Procalcitonin was neg ative. ER tried for lumbar puncture but was unsuccessful and it was done by radiology. CSF protein was 49 all other CSF studies were negative so far. ER talked to the neurology and recommended MRI of of the head with contrast and also MRV which also came back unremarkable. Currently afebrile. Hemodynamics are okay. With pain medications the headache is better. Currently no runny nose or sore throat. Has dry cough. Denies chest pain or shortness of breath. Denies body ache. Appetite is okay. No abdominal pain. Normal bowel and bladder movements. Ambulating okay. Patient says there was a mice in her car engine and it was cleaned in March. Otherwise denies any exposure to any animals. Headache Neck pain And fevers going on for last 9 to 10 days Labs okay except for ESR 76 and CRP 16 and alkaline phosphatase 113. UA is negative ,respiratory BioFire negative. Q fever and TYPHUS FEVER PENDING Chest x-ray negative Status post lumbar puncture. CSF total protein 49 slightly elevated . Other CSF studies negative so far Brain MRI with and without contrast and brain MRV unremarkable Currently hemodynamics are okay Will monitor in the hospital Will give a dose of steroid for elevated ESR Pain control Neurology and ID consult in a.m. Close monitor Hypothyroidism On Synthyroid DVT prophylaxis Lovenox. Disposition Med/telemetry Full code. History of Present Illness Chief Complaint: Fevers, headaches and neck pain Primary Care Provider: Kathya Rivers DO 78-year-old female with past med history significant for hypothyroidism, history of Aline's thyroiditis, dermatitis, senile osteoporosis was having fevers for last 9 to 10 days associated with a headache and neck pains. Patient went to PCP office on 08/07/2024 with facial swelling headache and difficulty chewing. She was having difficulty chewing struggle to open her mouth. Patient was started on Augmentin. CT of the neck was ordered which was unremarkable except showed mild/moderate bilateral temporomandibular joint arthrosis. Yesterday also had temperature spike. Still having headache ,whole front of the face was hurting and eyes were hurting. So came to the ER today. CT head was done which was negative. Bio fire was negative. Labs are okay. Procalcitonin was negative. ER tried for lumbar puncture but was unsuccessful and it was done by radiology. CSF protein was 49 all other CSF studies were negative so far. ER talked to the neurology and recommended MRI of of the head with contrast and also MRV which also came back unremarkable. Currently afebrile. Hemodynamics are okay. With pain medications the headache is better. Currently no runny nose or sore throat. Has dry cough. Denies chest pain or shortness of breath. Denies body ache. Appetite is okay. No abdominal pain. Normal bowel and bladder movements. Ambulating okay. Patient says there was a mice in her car engine and it was cleaned in March. Otherwise denies any exposure to any animals. Past medical history. As mentioned above Past surgical history. Dental surgery. Bilateral lens prosthesis. Knee arthroscopy. Social history. . No smoking. Alcohol 1-2 times a week. No drug use. Family history. Father had emphysema. Heart disease. Mother had osteoporosis. Son had testicular cancer. Allergies Allergy/AdvReac Type Severity Reaction Status Date / Time No Known Drug Allergies Allergy Unknown . Verified 12/23/23 11:46 nickel AdvReac Mild SKIN Verified 12/23/23 11:46 IRRITATION Home Medications Medication Instructions Recorded Confirmed Type albuterol sulfate 90 mcg/actuation 2 - 4 puff inhalation Q6H PRN 05/22/20 08/11/24 Rx aerosol inhaler Shortness Of Breath #6.7 grams ascorbate calcium (vitamin C) 500 500 mg PO QAM 06/20/20 08/11/24 History mg tablet cholecalciferol (vitamin D3) 25 25 mcg PO UD 06/20/20 08/11/24 History mcg (1,000 unit) capsule omega-3 fatty acids 1,000 mg 1,000 mg PO UD 06/20/20 08/11/24 History capsule (Fish Oil Concentrate) levothyroxine 50 mcg tablet 50 mcg PO QAM 01/07/23 08/11/24 History (Synthroid) aspirin 81 mg tablet,delayed 81 mg PO UD 12/13/23 08/11/24 History release amoxicillin 500 mg tablet 2,000 mg PO ONCE PRN dental karla 08/11/24 08/11/24 History amoxicillin 875 mg-potassium 1 tab PO BID 08/11/24 08/11/24 History clavulanate 125 mg tablet oxycodone 5 mg tablet 5 mg PO UD PRN pain 08/11/24 08/11/24 History Past Med/Surg History Problem List (Updated 08/11/24 @ 14:31 by Arnulfo Jacob MD) Headache (Acute) Status post right knee replacement (~10/2023) Osteoarthritis of right knee Impacted cerumen, right ear Wears hearing aid in both ears Phonak Audeo L70R disp 09/21/22 History of colon polyps Family history of colon cancer in mother Bilateral tinnitus Urinary incontinence Insomnia Itchy scalp Stable - possibly due to thyroid disease Osteoporosis (Acute) Sensorineural hearing loss (SNHL) of both ears mild to mod-sev HF SNHL AU Bilateral hearing aids Carpal tunnel syndrome, right Ulnar neuropathy at wrist Hypothyroidism Medical History Urinary incontinence Ulnar neuropathy at wrist Bilateral hearing loss Osteoarthritis of right knee Insomnia Hypothyroidism History of colon polyps History of carpal tunnel syndrome Bilateral tinnitus History of COVID-19 Chronic back pain Arthritis Migraine SOB (shortness of breath) Osteoporosis Surgical History History of total right knee replacement (TKR) Perforated nasal septum S/P wrist surgery History of anesthesia reaction History of colonoscopy Michael teeth extracted History of arthroscopic knee surgery History of hysteroscopy Family History Mother Family hx of colon cancer Colorectal cancer Father Prostate cancer Other Osteoporosis Denies family history of Ovarian cancer Myocardial infarction Breast cancer Social History Smoking Status: Never smoker Second Hand Exposure: Yes (as child); Do You Dip or Chew Tobacco: No; Hx Alcohol Use: Yes Alcohol type: wine Alcohol Intake Frequency: Monthly or L ess Hx Substance Use: No Preferred Language: Indonesian Communication Ability: Effective Visual Impairment: No Limitations Hearing Ability: Hard of Hearing Steel Rule Inspector Required: No Beliefs That Will Affect Care: None marital status: Current Living Situation: Spouse current occupational status: retired Feels Safe at Home: Yes Childhood Exposure to Second-Hand Smoke: Yes Diet: regular Dental Care, Regularly: Yes Physical Activity Frequency: 3-4 Times per Week Seatbelt Use: always Sunscreen Use: Yes Assistive Devices: Glasses and Hearing Aid - Bilateral Review of Systems Review of Systems: All systems reviewed & are unremarkable except as noted in HPI & below Physical Exam Physical Exam: General- Not in acute distress Head- atraumatic Eyes- PERRL. ENT- oropharynx clear Neck- supple, no JVD. Lungs- clear to auscultation no wheezing or crackles Heart- regular rate and rhythm; no murmur, no gallop. Abdomen- normal bowel sounds, soft, nontender, no distension Extremities- no pretibial edema, no erythema seen Neuro- alert, oriented PERRL, no facial palsy; no dysarthria; moves extremities Results & Data Results & Data Vital Signs (Past 12 Hours) Vital Signs Temp Pulse Pulse Pulse Resp BP BP 08/11/24 21:00 72 23 139/73 08/11/24 19:00 75 22 140/72 08/11/24 18:45 76 120/76 08/11/24 18:30 69 18 138/82 08/11/24 18:26 68 08/11/24 18:15 128/87 08/11/24 18:00 70 20 128/72 08/11/24 16:30 65 16 126/76 08/11/24 16:00 70 22 130/85 08/11/24 15:30 71 17 119/63 08/11/24 15:00 67 15 125/71 08/11/24 15:00 65 18 125/71 08/11/24 14:29 70 08/11/24 14:04 08/11/24 14:02 75 20 133/77 08/11/24 12:44 36.6 C 76 18 129/88 Pulse Ox O2 Del Method 08/11/24 21:00 98 Room Air 08/11/24 19:00 98 08/11/24 18:45 98 08/11/24 18:30 98 08/11/24 18:26 08/11/24 18:15 08/11/24 18:00 98 08/11/24 16:30 99 08/11/24 16:00 99 08/11/24 15:30 97 08/11/24 15:00 99 08/11/24 15:00 98 Room Air 08/11/24 14:29 08/11/24 14:04 100 Room Air 08/11/24 14:02 98 Room Air 08/11/24 12:44 98 Room Air Diagnostic Findings Laboratory Results WBC 7.80 K/ul (4.8-10.8) 08/11/24 12:58 RBC 4.05 M/uL (4.20-5.40) L 08/11/24 12:58 Hgb 12.9 g/dl (12.0-16.0) 08/11/24 12:58 Hct 38.8 % (37.0-47.0) 08/11/24 12:58 MCV 95.8 fL (80.0-100.0) 08/11/24 12:58 MCH 31.9 pg (25.0-34.0) 08/11/24 12:58 MCHC 33.2 g/dL (32.0-36.0) 08/11/24 12:58 RDW Std Deviation 45.9 fL (36.4-46.3) 08/11/24 12:58 RDW Coeff of Jl 13.0 % (11.5-14.5) 08/11/24 12:58 Plt Count 297 K/uL (130-400) 08/11/24 12:58 MPV 9.0 fL (9.4-12.4) L 08/11/24 12:58 Immature Gran % (Auto) 0.4 % 08/11/24 12:58 Neut % (Auto) 78.3 % 08/11/24 12:58 Lymph % (Auto) 9.6 % 08/11/24 12:58 Coffee % (Auto) 7.9 % 08/11/24 12:58 Eos % (Auto) 3.2 % 08/11/24 12:58 Baso % (Auto) 0.6 % 08/11/24 12:58 Neut # (Auto) 6.10 K/uL (1.40-6.50) 08/11/24 12:58 Lymph # (Auto) 0.75 K/uL (1.20-3.40) L 08/11/24 12:58 Coffee # (Auto) 0.62 K/uL (0.11-0.59) H 08/11/24 12:58 Eos # (Auto) 0.25 K/uL (0.00-0.50) 08/11/24 12:58 Baso # (Auto) 0.05 K/uL (0.00-0.20) 08/11/24 12:58 Immature Gran # (Auto) 0.03 K/uL (0.01-0.20) 08/11/24 12:58 ESR 76 mm/hr (0-30) H 08/11/24 12:58 Sodium 137 mmol/L (136-145) 08/11/24 12:58 Potassium 4.0 mmol/L (3.5-5.1) 08/11/24 12:58 Chloride 103 mmol/L (98-107) 08/11/24 12:58 Carbon Dioxide 29 mmol/L (21-32) 08/11/24 12:58 Anion Gap 5 (3-11) 08/11/24 12:58 BUN 10 mg/dl (6-23) 08/11/24 12:58 Creatinine 0.59 mg/dl (0.6-1.2) L 08/11/24 12:58 Est Cr Clr Drug Dosing 66.2 ml/min 08/11/24 12:58 eGFR 91.05 08/11/24 12:58 BUN/Creatinine Ratio 16.9 (10-20) 08/11/24 12:58 Glucose 96 mg/dl (70-99(Fasting)) 08/11/24 12:58 Lactate 1.0 mmol/L (0.4-2.0) 08/11/24 14:20 Calcium 8.6 mg/dl (8.6-10.3) 08/11/24 12:58 Magnesium 2.0 mg/dl (1.7-2.4) 08/11/24 12:58 Total Bilirubin 0.3 mg/dl (0.2-1.0) 08/11/24 12:58 Direct Bilirubin 0.1 mg/dl (0-0.2) 08/11/24 12:58 AST 32 U/L (13-39) 08/11/24 12:58 ALT 34 U/L (7-52) 08/11/24 12:58 Alkaline Phosphatase 113 U/L (34-104) H 08/11/24 12:58 Troponin I High Sens 6.1 pg/ml (0-14) 08/11/24 12:58 C-Reactive Protein 16.77 mg/dl (0-0.5) H 08/11/24 12:58 Total Protein 6.6 gm/dl (6.0-8.3) 08/11/24 12:58 Albumin 3.5 gm/dl (3.4-5.0) 08/11/24 12:58 Procalcitonin 0.05 ng/ml (0-0.5) 08/11/24 12:58 Urine Color Yellow 08/11/24 21:07 Urine Appearance Clear (Clear) 08/11/24 21:07 Urine pH 6.0 (4.5-7.5) 08/11/24 21:07 Ur Specific [place] 1.027 (1.000-1.030) 08/11/24 21:07 Urine Protein Negative (Negative) 08/11/24 21:07 Urine Glucose (UA) Negative (Negative) 08/11/24 21:07 Urine Ketones Trace (Negative) H 08/11/24 21:07 Urine Blood Negative (Negative) 08/11/24 21:07 Urine Nitrite Negative (Negative) 08/11/24 21:07 Urine Bilirubin Negative (Negative) 08/11/24 21:07 Urine Urobilinogen Negative (Negative) 08/11/24 21:07 Ur Leukocyte Esterase Negative (Negative) 08/11/24 21:07 Fluid Comment 08/11/24 17:17 CSF Appearance Clear 08/11/24 17:17 CSF Color Colorless 08/11/24 17:17 Xanthrochromic No xanthochromia 08/11/24 17:17 CSF WBC 0 (0-5) 08/11/24 17:17 CSF RBC 3 (0) 08/11/24 17:17 CSF Cell Count Tube # 3 08/11/24 17:17 CSF Chemistry Tube # 1 08/11/24 17:17 CSF Glucose 59 mg/dl (40-70) 08/11/24 17:17 CSF Total Protein 49.0 mg/dl (15-45) H 08/11/24 17:17 CSF C.neoform/gat PCR Not Detected (NotDetected) 08/11/24 17:17 CSF CMV DNA (PCR) Not Detected (NotDetected) 08/11/24 17:17 CSF Enterovirus (PCR) Not Detected (NotDetected) 08/11/24 17:17 CSF E. coli K1 (PCR) Not Detected (NotDetected) 08/11/24 17:17 CSF H. influenzae (PCR) Not Detected (NotDetected) 08/11/24 17:17 CSF HSV I (PCR) Not Detected (NotDetected) 08/11/24 17:17 CSF HSV II (PCR) Not Detected (NotDetected) 08/11/24 17:17 CSF HHV 6 (PCR) Not Detected (NotDetected) 08/11/24 17:17 CSF L.monocytogenes PCR Not Detected (NotDetected) 08/11/24 17:17 CSF N. meningitidis PCR Not Detected (NotDetected) 08/11/24 17:17 CSF Parechovirus (PCR) Not Detected (NotDetected) 08/11/24 17:17 CSF S. agalactiae (PCR) Not Detected (NotDetected) 08/11/24 17:17 CSF S. pneumoniae (PCR) Not Detected (NotDetected) 08/11/24 17:17 CSF VZV DNA (PCR) Not Detected (NotDetected) 08/11/24 17:17 Adenovirus (PCR) Not Detected (NotDetected) 08/11/24 12:58 Anaplasma Smear See Comment 08/11/24 12:58 Babesia Smear See Comment 08/11/24 12:58 Babesia microti DNA PCR Cancelled 08/11/24 12:58 B. pertussis DNA (PCR) Not Detected (NotDetected) 08/11/24 12:58 B.parapertussis DNA PCR Not Detected (NotDetected) 08/11/24 12:58 Lyme Disease Screen Negative (Negative) 08/11/24 12:58 C. pneumoniae DNA (PCR) Not Detected (NotDetected) 08/11/24 12:58 Coronavirus OC43 (PCR) Not Detected (NotDetected) 08/11/24 12:58 Coronavirus HKU1 (PCR) Not Detected (NotDetected) 08/11/24 12:58 Coronavirus 229E (PCR) Not Detected (NotDetected) 08/11/24 12:58 SARS-CoV-2 (PCR) Not Detected (NotDetected) 08/11/24 12:58 Coronavirus NL63 (PCR) Not Detected (NotDetected) 08/11/24 12:58 Human Metapneumovir PCR Not Detected (NotDetected) 08/11/24 12:58 Influenza Type A (PCR) Not Detected (NotDetected) 08/11/24 12:58 Influenza Type B (PCR) Not Detected (NotDetected) 08/11/24 12:58 M. pneumoniae (PCR) Not Detected (NotDetected) 08/11/24 12:58 Parainfluenza 1 (PCR) Not Detected (NotDetected) 08/11/24 12:58 Parainfluenza 2 (PCR) Not Detected (NotDetected) 08/11/24 12:58 Parainfluenza 3 (PCR) Not Detected (NotDetected) 08/11/24 12:58 Parainfluenza 4 (PCR) Not Detected (NotDetected) 08/11/24 12:58 RSV (PCR) Not Detected (NotDetected) 08/11/24 12:58 Entero/Rhino (PCR) Not Detected (NotDetected) 08/11/24 12:58 Impressions Chest X-Ray 08/11/24 12:48 XR chest 1V not portable CLINICAL HISTORY: fever COMPARISON STUDY: 09/20/2023 FINDINGS: Heart size and pulmonary vasculature are normal. No effusion, consolidation, or pneumothorax. IMPRESSION: No pneumonia seen. ACT 112: Negative or not required by law. Electronically signed by: Uriel Evans M.D. 08/11/2024 1:[address] 08/11/24 12:48 CT head/brain wo con CLINICAL HISTORY: headache, fever. TECHNIQUE: Multiple axial CT images of the head were obtained without contrast. A dose lowering technique was utilized adhering to the principles of ALARA. CT DOSE: 625.8 mGy.cm COMPARISON: None FINDINGS: No intracranial hemorrhage seen. No mass effect, midline shift, or hydrocephalus. No skull fracture. Visualized paranasal sinuses and mastoid air cells are clear. IMPRESSION: No acute findings. ACT 112: Negative or not required by law. The above report was generated using voice recognition software. It may contain grammatical, syntax or spelling errors. Electronically signed by: Uriel Evans M.D. 08/11/2024 1:26 PM Lumbar Puncture 08/11/24 16:14 IR lumbar puncture diagnostic CLINICAL HISTORY: rule out meningitis Fluoroscopy time: 35 seconds. COMPARISON STUDY: None FINDINGS: The procedure was discussed and questions answered. Consent was obtained. Ms. Lowe was positioned prone on the fluoroscopy table and timeout was performed. The low back was prepped and draped in standard sterile fashion. 1% lidocaine was used for local anesthesia. A 22-gauge spinal needle was advanced at the L4-5 level initially without success. Additional lidocaine was administered. 22-gauge spinal needle was advanced at the L5-S1 level into the thecal sac. Clear CSF appeared spontaneously at the needle. 2.5 cc of clear CSF was collected in each of 4 tubes. Needle was removed. Hemostasis was obtained with manual compression. Sterile dressing was applied. IMPRESSION: Lumbar puncture as described. ACT 112: Negative or not required by law. Electronically signed by: Uriel Evans M.D. 08/11/2024 5:57 PM Brain MRI 08/11/24 19:09 Exam(s): MRI HEAD W/WO Contrast IV Amt: 6.3 gadavist EXAM: MR Head Without and With Intravenous Contrast CLINICAL HISTORY: Reason for exam: headache, fever. TECHNIQUE: Magnetic resonance images of the head/brain without and with intravenous contrast in multiple planes. CONTRAST: Patient received 6.3 gadavist of IV contrast COMPARISON: CT head FINDINGS: Brain: No diffusion restriction to suggest acute cerebral ischemia. No acute intracranial hemorrhage. Senescent globus pallidus mineralization. Proximal intracranial flow voids appear normal. Parenchymal volume appears normal for age. No mass-effect or shift. Periventricular deep cerebral white matter foci of FLAIR signal hyperintensity in keeping with mild chronic small vessel ischemic change. No intracranial mass or abnormal enhancement. Ventricles: Unremarkable. No hydrocephalus. Bones/joints: Unremarkable. No acute fracture. Sinuses: Mild mucosal thickening in the maxillary sinuses. Mastoid air cells: Unremarkable as visualized. No mastoid effusion. Orbits: Lens replacements. IMPRESSION: 1. No diffusion restriction to suggest acute cerebral ischemia. No acute intracranial hemorrhage. 2. No intracranial mass or abnormal enhancement. Electronically signed by: Geraldo Chiu M.D. 08/11/24 22:15 PM Head/Brain Mag Res Venography 08/11/24 19:09 Exam(s): MRV HEAD EXAM: MR Venography Head Without Intravenous Contrast CLINICAL HISTORY: Reason for exam: headache. TECHNIQUE: Magnetic resonance venography images of the head without intravenous contrast. COMPARISON: No relevant prior studies available. FINDINGS: Superior sagittal sinus: Unremarkable. Patent. Straight sinus: Unremarkable. Patent. Transverse sinuses: Unremarkable. Patent. Sigmoid sinuses: Unremarkable. Patent. Internal jugular veins: Unremarkable as visualized. Internal cerebral and cortical veins: Unremarkable as visualized. IMPRESSION: Normal head/brain MRV. Electronically signed by: Geraldo Chiu M.D. 08/11/24 22:13 PM ECG Additional Comments: ECG. Sinus rhythm with PACs rate of 78. QTc 419 Code Status & VTE Plan VTE Prophylaxis Plan VTE Prophylaxis will be ordered: Yes
[2024-08-12] MEDS: methylPREDNISolone 125 MG/2 ML VIAL IV STA (03:19)
[2024-08-12 04:47] LABS: Basophils # (auto) 0.05 K/uL (0.00-0.20); Basophils % (auto) 0.5 %; Eosinophils # (auto) 0.13 K/uL (0.00-0.50); Eosinophils % (auto) 1.4 %; Hematocrit (blood only) 36.7 % (37.0-47.0); Hemoglobin 12.2 g/dl (12.0-16.0); Immature Granulocytes # (auto) 0.03 K/uL (0.01-0.20); Immature Granulocytes % (auto) 0.3 %; Lymphocytes % (auto) 7.5 %; Mean Corpuscular Hemoglobin 31.6 pg (25.0-34.0); Mean Corpuscular Hgb Conc 33.2 g/dL (32.0-36.0); Mean Corpuscular Volume 95.1 fL (80.0-100.0); Monocytes % (auto) 5.4 %; Neutrophils # (auto) 7.87 K/uL (1.40-6.50); Neutrophils % (auto) 84.9 %; Platelet Count 288 K/uL (130-400); RDW Coefficient of Variation 12.9 % (11.5-14.5); RDW Standard Deviation 44.8 fL (36.4-46.3); Red Blood Count 3.86 M/uL (4.20-5.40); White Blood Count 9.28 K/ul (4.8-10.8)
[2024-08-12 05:02] LABS: BUN Creatinine Ratio 16.4 (10-20); Calcium 8.8 mg/dl (8.6-10.3); Potassium 4.4 mmol/L (3.5-5.1)
--- OUTSIDE RECORDS SUMMARY | 2024-08-12 06:03 | External Medical Summary | Summary of Care ---
Author Name Unknown Organization [facility] Address [address] [place] [address] Phone [phone] Care Team Providers Care [employer] Name Role Phone FitoKathya alvarado Susan MODI Primary Care Provider [phone] Reason for Visit * Reason Onset Date Comments Nurse Documentation 08/11/202408/11 Encounter Details Date Type Department Care Team (Late st Contact Info) Description 08/11/2024 10:15 AM EST Scheduled Telephone Family Practice [address] [facility] [address] [place] [id number] College, Nurse [facility] Prac [address] [facility] [address] [place] [address] Arrived Allergies Active Allergy Reactions Criticality Noted Date Comments Nickel Low 04/30/2021 Other Reaction(s): SKIN IRRITATION documented as of this encounter (statuses as of 08/11/2024) Medications Vitamin D 50 MCG (1999) Oral [...] 09/09/2017 01/15/2020 Overview (09/30/2020): DO NOT DELETE [facility] DETECT Study: Project # [id number], [employer]: Uriel Hassan, PhD. SUMMARY: Goal: Establish test [...] contact study staff at ; after hours [employer] via the [facility] plug saw operator . Please contact study team before resolving/deleting from patients problem list. Study phone number: [phone]. Diagnosis changed due to Research Module. Go to [employer] for study details. Encounter for examination fo r normal comparison and control in clinical research program 09/09/2017 02/12/2022 Overview (09/30/2020): DO NOT DELETE - [facility] AGATHA Study: Project # [id number], [employer]: Bayron Mcgee, MS, MPH. SUMMARY: Goal: Establish [...] contact study staff at ; after hours [employer] via the [facility] hospital plug saw operator . - Please contact study team before resolving/deleting from patients problem list. Study phone number: [phone]. Diagnosis changed due to Research Module. Go to [employer] for study details. documented as of this [...] 30 Mcg, IM, 12 yrs and above ([employer]) 03/11/2022 Pneumococcal Conjugate Vacc, 13 Valent (Prevnar) [...] encounter Miscellaneous Notes * Telephone Encounter - Zuleyka Cardenas LPN - 08/11/2024 12:18 PM EST Call placed to patient and relayed information from Dr. Rivers. Pt acknowledged understanding andagreeable to ED. States she has someone that will drive her. No questions at this time. Dr. Rivers aware pt will go to ED. * Telephone Encounter - Kathya Rivers DO - 08/11/2024 12:15 PM EST With ongoing symptoms and now new fever, I would advise ED for further evaluation. May need r/o formeningitis given headaches. * Telephone Encounter - Zuleyka Cardenas LPN - 08/11/2024 12:01 PM EST Nurse phone call placed to patient. Patient reports she is not feeling any better. Had fever last night 101. Having pain upper jaw - left and right side. Occasional throat pain. Having headache. Pain behind her eyes and both eyes are itching. States the facial swelling has gone down some. Taking tylenol 1000 mg 3 times a day. Taking antibiotic as ordered. No rash present. documented in this encounter Plan of Treatment Upcoming Encounters Date Type Department Care Team (Late st Contact Info) Description 12/06/2024 9:20 AM EDT Office Visit Family Practice [address] [facility] [address] [place] [address] Kathya Rivers DO [address] [place] [address] 01/25/2025 8:30 AM EDT Office Visit Rheumatology [facility] [address] [place] [phone] Omega Escalante CRNP [address] [place] [id number] Health Maintenance Due Date Last Done Comments [...] D LEVEL ONCE IN A LIFETIME-USE SMARTSET# [id number] Completed 08/03/2024, 01/07/2023, 11/25/2021 HPV (Gardasil) Vaccine [...] filedocumented as of this encounter Care Teams [employer] Relationship Specialty Start Date End Date Kathya Rivers DO [address] [facility] [place] [address] PCP - General Family Medicine 12/24/23 documented as of this encounter
[2024-08-12] MEDS: ENOXAPARIN INJ 40 MG/0.4 ML SYR SQ SCH (09:35)
[2024-08-12] MEDS: ACETAMINOPHEN 325 MG TAB PO PRN (09:41)
[2024-08-12] MEDS: OPTIRAY 320 125ml IV ONE (10:48)
[2024-08-12] MEDS: predniSONE 20 MG TAB PO SCH (10:57)
--- NOTE | 2024-08-12 11:01 | Neurology Consultation ---
Date of Consultation August 12, 2024 Assessment & Plan (1) Headache: Fever, headache & cervicalgia Possible aseptic meningitis vs also possible GCA Agree with initiating steroids and pursuing artery biopsy as there remains concern for GCA Agree with continued antimicrobial therapy and consultation with ID team Recommend continue to monitor inflammatory markers Continue to monitor/control pain Continue frequent neurological assessments Obtain stat CT brain without contrast for any acute neurological decline Continue to monitor/control blood pressure & blood glucose Continue to monitor telemetry closely Continue to monitor renal and hepatic function, keep euvolemic Ok from neurology perspective for VTE prophylaxis PT/OT/SLT to eval and treat Telehealth Consultation Telehealth Information Telehealth Information: I performed this visit using a real-time telehealth connection between my location and the patients location ([facility]). After connecting through interactive tele-video, patient was identified by name and date of and/or wristband check.Patient (or authorized healthcare insurance service representative) was informed that this was a telemedicine visit and it was being conducted confidentially over secure lines. My office door was closed and no one else was present in the room with me.Patient (or authorized healthcare insurance service representative) provided consent to proceed with the visit, expressed an understanding of privacy and security of the telemedicine visit, and gave permission to have a hospital insurance service representative in the room in order to assist with the visit and to conduct portions of the visit, as needed. I informed the patient (or authorized healthcare insurance service representative) that I reviewed their record and presented the opportunity for them to ask any questions regarding the visit today. The patient agreed to participate. History of Present Illness Reason for Consultation: Headache, fever, neck pain Requesting Physician: Dr. Zavaleta Attending Physician: Volodymyr Zavaleta MD History of Present Illness 78 ze left handed female with significant past medical history of Aline's thyroiditis, hypothyroidism remains on thyroid replacement therapy presented with reported headache neck pain and persistent low grade fever for greater than one week. She was started on Augmentin. Presented to ER after persistent symptoms. Has undergone LP for CSF evaluation revealing only slightly elevated protein. meningitis panel appears unremarkable. Her inflammatory markers are elevated including CRP and ESR. She denies recent ill contacts or trauma. She has reportedly suffered difficulty with chewing her food about a week ago. She has undergone MRI brain with and without contrast appears without overt evidence of acute intracranial abnormality. Brain MRV is unremarkable as well. She has undergone CTA head & neck also unrevealing for over acute process. There is no overt evidence of vasculitis. Reports continued head neck discomfort and reports pain on palpation of right side temporal region. She does not have acomplaint of vision changes but reports pain in head and feeling of pain behind both eyes. I have performed televideo consultation. She is alert & oriented; able to answer all questions appropriately, name objects on televideo monitor, repeat phrases and perform complex/embedded commands without deficit. Neurological exam is non lateralizing/nonfocal in terms of motor strength and coordination. Allergies Allergy/AdvReac Type Severity Reaction Status Date / Time No Known Drug Allergies Allergy Unknown . Verified 12/23/23 11:46 nickel AdvReac Mild SKIN Verified 12/23/23 11:46 IRRITATION Home Medications Medication Instructions Recorded Confirmed Type albuterol sulfate 90 mcg/actuation 2 - 4 puff inhalation Q6H PRN 05/22/20 08/11/24 Rx aerosol inhaler Shortness Of Breath #6.7 grams ascorbate calcium (vitamin C) 500 500 mg PO QAM 06/20/20 08/11/24 History mg tablet cholecalciferol (vitamin D3) 25 25 mcg PO UD 06/20/20 08/11/24 History mcg (1,000 unit) capsule omega-3 fatty acids 1,000 mg 1,000 mg PO UD 06/20/20 08/11/24 History capsule (Fish Oil Concentrate) levothyroxine 50 mcg tablet 50 mcg PO QAM 01/07/23 08/11/24 History (Synthroid) aspirin 81 mg tablet,delayed 81 mg PO UD 12/13/23 08/11/24 History release amoxicillin 500 mg tablet 2,000 mg PO ONCE PRN dental karla 08/11/24 08/11/24 History amoxicillin 875 mg-potassium 1 tab PO BID 08/11/24 08/11/24 History clavulanate 125 mg tablet oxycodone 5 mg tablet 5 mg PO UD PRN pain 08/11/24 08/11/24 History Patient History Medical History Urinary incontinence Ulnar neuropathy at wrist Bilateral hearing loss Osteoarthritis of right knee Insomnia Hypothyroidism History of colon polyps History of carpal tunnel syndrome Bilateral tinnitus History of COVID-19 Chronic back pain Arthritis Migraine SOB (shortness of breath) Osteoporosis Surgical History History of total right knee replacement (TKR) Perforated nasal septum S/P wrist surgery History of anesthesia reaction History of colonoscopy Two Dot teeth extracted History of arthroscopic knee surgery History of hysteroscopy Family History Mother Family hx of colon cancer Colorectal cancer Father Prostate cancer Other Osteoporosis Denies family history of Ovarian cancer Myocardial infarction Breast cancer Social History Smoking Status: Never smoker Second Hand Exposure: Yes (as child); Do You Dip or Chew Tobacco: No; Hx Alcohol Use: Yes Alcohol type: wine Alcohol Intake Frequency: Monthly or Less Hx Substance Use: No Preferred Language: Tajik Communication Ability: Effective Visual Impairment: No Limitations Hearing Ability: Hard of Hearing Sander Hand Required: No Beliefs That Will Affect Care: None marital status: Current Living Situation: Spouse current occupational status: retired Feels Safe at Home: Yes Childhood Exposure to Second-Hand Smoke: Yes Diet: regular Dental Care, Regularly: Yes Physical Activity Frequency: 3-4 Times per Week Seatbelt Use: always Sunscreen Use: Yes Assistive Devices: Glasses and Hearing Aid - Bilateral Physical Exam Neurological Examination: Mental Status: Awake and alert. Oriented to person, place, and time. Fluency naming repetition and comprehension appear grossly intact. Affect remains appropriate. CN testing: I: Deferred II:Reports no changes in visual acuity III/IV/: No evidence of gaze preference, hippus, nystagmus or roving eye movements V: Facial sensation reportedly grossly intact to light touch bilaterally VII: Facial movements appear without evidence of asymmetry VIII: Hearing appears grossly intact to loud voice bilaterally IX/X: Palate is unable to be accurately visualized via telemedicine XI: Shoulder shrug appears symmetric/ grossly intact bilaterally XII: Tongue protrudes midline without evidence of biting Motor exam: Strength appears grossly intact/symmetric in all extremities Sensory: Sensation is reportedly grossly intact throughout Coordination: No apparent evidence of dysmetria or dysdiadochokinesia Reflexes: Deferred Gait: Deferred Results & Data Vital Signs (Past 12 Hours) Vital Signs Pulse Pulse Pulse Resp BP Pulse Ox Pulse Ox 08/12/24 07:02 68 08/12/24 06:00 81 81 16 123/70 95 08/12/24 04:00 70 20 127/70 93 08/12/24 01:44 95 08/12/24 01:43 71 17 144/75 H 94 08/12/24 01:13 72 24 127/78 97 08/12/24 00:04 71 17 96 08/11/24 23:42 71 O2 Del Method O2 Del Method 08/12/24 07:02 08/12/24 06:00 Room Air 08/12/24 04:00 Room Air 08/12/24 01:44 Room Air 08/12/24 01:43 Room Air 08/12/24 01:13 Room Air 08/12/24 00:04 08/11/24 23:42 Laboratory Results Abnormal lab results 08/11/24 08/11/24 08/11/24 Range/Units 12:58 17:17 21:07 RBC 4.05 L (4.20-5.40) M/uL Hct (37.0-47.0) % MPV 9.0 L (9.4-12.4) fL Neut # (Auto) (1.40-6.50) K/uL Lymph # (Auto) 0.75 L (1.20-3.40) K/uL Franklin # (Auto) 0.62 H (0.11-0.59) K/uL ESR 76 H (0-30) mm/hr Sodium (136-145) mmol/L Creatinine 0.59 L (0.6-1.2) mg/dl Glucose (70-99(Fasting)) mg/dl Alkaline Phosphatase 113 H (34-104) U/L C-Reactive Protein 16.77 H (0-0.5) mg/dl Urine Ketones Trace H (Negative) CSF Total Protein 49.0 H (15-45) mg/dl 08/12/24 Range/Units 04:30 RBC 3.86 L (4.20-5.40) M/uL Hct 36.7 L (37.0-47.0) % MPV 9.0 L (9.4-12.4) fL Neut # (Auto) 7.87 H (1.40-6.50) K/uL Lymph # (Auto) 0.70 L (1.20-3.40) K/uL Franklin # (Auto) (0.11-0.59) K/uL ESR (0-30) mm/hr Sodium 133 L (136-145) mmol/L Creatinine 0.55 L (0.6-1.2) mg/dl Glucose 111 H (70-99(Fasting)) mg/dl Alkaline Phosphatase (34-104) U/L C-Reactive Protein (0-0.5) mg/dl Urine Ketones (Negative) CSF Total Protein (15-45) mg/dl Diagnostic Findings Chest X-Ray 08/11/24 12:48 XR chest 1V not portable CLINICAL HISTORY: fever COMPARISON STUDY: 09/20/2023 FINDINGS: Heart size and pulmonary vasculature are normal. No effusion, consolidation, or pneumothorax. IMPRESSION: No pneumonia seen. ACT 112: Negative or not required by law. Electronically signed by: Uriel Evans M.D. 08/11/2024 1:[address] 08/11/24 12:48 CT head/brain wo con CLINICAL HISTORY: headache, fever. TECHNIQUE: Multiple axial CT images of the head were obtained without contrast. A dose lowering technique was utilized adhering to the principles of ALARA. CT DOSE: 625.8 mGy.cm COMPARISON: None FINDINGS: No intracranial hemorrhage seen. No mass effect, midline shift, or hydrocephalus. No skull fracture. Visualized paranasal sinuses and mastoid air cells are clear. IMPRESSION: No acute findings. ACT 112: Negative or not required by law. The above report was generated using voice recognition software. It may contain grammatical, syntax or spelling errors. Electronically signed by: Uriel Evans M.D. 08/11/2024 1:26 PM Lumbar Puncture 08/11/24 16:14 IR lumbar puncture diagnostic CLINICAL HISTORY: rule out meningitis Fluoroscopy time: 35 seconds. COMPARISON STUDY: None FINDINGS: The procedure was discussed and questions answered. Consent was obtained. Ms. Lowe was positioned prone on the fluoroscopy table and timeout was performed. The low back was prepped and draped in standard sterile fashion. 1% lidocaine was used for local anesthesia. A 22-gauge spinal needle was advanced at the L4-5 level initially without success. Additional lidocaine was administered. 22-gauge spinal needle was advanced at the L5-S1 level into the thecal sac. Clear CSF appeared spontaneously at the needle. 2.5 cc of clear CSF was collected in each of 4 tubes. Needle was removed. Hemostasis was obtained w ith manual compression. Sterile dressing was applied. IMPRESSION: Lumbar puncture as described. ACT 112: Negative or not required by law. Electronically signed by: Uriel Evans M.D. 08/11/2024 5:57 PM Brain MRI 08/11/24 19:09 Exam(s): MRI HEAD W/WO Contrast IV Amt: 6.3 gadavist EXAM: MR Head Without and With Intravenous Contrast CLINICAL HISTORY: Reason for exam: headache, fever. TECHNIQUE: Magnetic resonance images of the head/brain without and with intravenous contrast in multiple planes. CONTRAST: Patient received 6.3 gadavist of IV contrast COMPARISON: CT head FINDINGS: Brain: No diffusion restriction to suggest acute cerebral ischemia. No acute intracranial hemorrhage. Senescent globus pallidus mineralization. Proximal intracranial flow voids appear normal. Parenchymal volume appears normal for age. No mass-effect or shift. Periventricular deep cerebral white matter foci of FLAIR signal hyperintensity in keeping with mild chronic small vessel ischemic change. No intracranial mass or abnormal enhancement. Ventricles: Unremarkable. No hydrocephalus. Bones/joints: Unremarkable. No acute fracture. Sinuses: Mild mucosal thickening in the maxillary sinuses. Mastoid air cells: Unremarkable as visualized. No mastoid effusion. Orbits: Lens replacements. IMPRESSION: 1. No diffusion restriction to suggest acute cerebral ischemia. No acute intracranial hemorrhage. 2. No intracranial mass or abnormal enhancement. Electronically signed by: Geraldo Chiu M.D. 08/11/24 22:15 PM Head/Brain Mag Res Venography 08/11/24 19:09 Exam(s): MRV HEAD EXAM: MR Venography Head Without Intravenous Contrast CLINICAL HISTORY: Reason for exam: headache. TECHNIQUE: Magnetic resonance venography images of the head without intravenous contrast. COMPARISON: No relevant prior studies available. FINDINGS: Superior sagittal sinus: Unremarkable. Patent. Straight sinus: Unremarkable. Patent. Transverse sinuses: Unremarkable. Patent. Sigmoid sinuses: Unremarkable. Patent. Internal jugular veins: Unremarkable as visualized. Internal cerebral and cortical veins: Unremarkable as visualized. IMPRESSION: Normal head/brain MRV. Electronically signed by: Geraldo Chiu M.D. 08/11/24 22:13 PM Head CTA 08/12/24 10:35 CTA ANGIOGRAPHY OF THE HEAD CLINICAL HISTORY: Headaches. Fever. Evaluate for giant cell arteritis. COMPARISON STUDY: Head CT August 11, 2024. MRI of the brain August 11, 2024. TECHNIQUE: Helical axial images of the head were obtained following uneventful intravenous administration of 112 cc of Optiray. Sagittal and coronal reconstructions were viewed as well as maximal intensity projections on an independent 3-D workstation. Automated exposure control was utilized for the study. A dose lowering technique was utilized adhering to the principles of ALARA. CT DOSE: 426.58 mGy.cm FINDINGS: No acute intracranial hemorrhage is identified on contrast enhanced exam. Ventricular system is unremarkable. Basal cisterns are patent. A small amount of secretions within the right maxillary sinus are present. The bilateral M1, M2, A1 and A2 segments are patent. There is mild plaque within the cavernous carotids without stenosis. The posterior circulation is also intact. No intracranial aneurysm. No significant vascular irregularity is identified. No vascular wall thickening is identified. IMPRESSION: 1. Unremarkable CTA of the head. No large vessel occlusion. Mild atherosclerotic plaque within the cavernous carotids without stenosis. 2. No CT evidence for vasculitis although CTA may be normal in the setting of vasculitis. ACT 112: Negative or not required by law. Electronically signed by: Sarabjit Matamoros M.D. 08/12/2024 11:23 AM Neck CTA 08/12/24 10:35 CT ANGIOGRAPHY OF THE NECK WITH CONTRAST CLINICAL HISTORY: Headaches. Evaluate for giant cell arteritis. COMPARISON STUDY: No previous studies for comparison. Technique: CT angiography of the carotid and vertebral arteries was obtained using Optiray and 3D reconstruction on an independent workstation. NASCET criteria was utilized. Automated exposure control was utilized for the study. A dose lowering technique was utilized adhering to the principles of ALARA. Findings: Visualized portions of the lung apices are unremarkable. There are no cervical spine fractures. There is no cervical lymphadenopathy. The bilateral common carotid, cervical internal carotid and vertebral arteries are patent. No stenosis, dissection or aneurysm is identified within the neck. There is minimal atherosclerotic plaque within the proximal bilateral internal carotid arteries without stenosis. CTA of the head will be reported separately. No significant vascular wall thickening is identified within the major vessels of the neck. IMPRESSION: Unremarkable CTA of the neck. Minimal plaque within the proximal bilateral internal carotid arteries without stenosis. ACT 112: Negative or not required by law. Electronically signed by: Sarabjit Matamoros M.D. 08/12/2024 11:16 AM Medications Administered Home Medications Medication Instructions Recorded Confirmed Last Taken albuterol sulfate 90 mcg/actuation 2 - 4 puff inhalation Q6H PRN 05/22/20 08/11/24 10/11/23 aerosol inhaler Shortness Of Breath #6.7 grams ascorbate calcium (vitamin C) 500 500 mg PO QAM 06/20/20 08/11/24 10/15/23 mg tablet cholecalciferol (vitamin D3) 25 25 mcg PO UD 06/20/20 08/11/24 10/15/23 mcg (1,000 unit) capsule omega-3 fatty acids 1,000 mg 1,000 mg PO UD 06/20/20 08/11/24 10/15/23 capsule (Fish Oil Concentrate) levothyroxine 50 mcg tablet 50 mcg PO QAM 01/07/23 08/11/24 12/23/23 04:00 (Synthroid) aspirin 81 mg tablet,delayed 81 mg PO UD 12/13/23 08/11/24 Unknown release amoxicillin 500 mg tablet 2,000 mg PO ONCE PRN dental karla 08/11/24 08/11/24 Unknown amoxicillin 875 mg-potassium 1 tab PO BID 08/11/24 08/11/24 Unknown clavulanate 125 mg tablet oxycodone 5 mg tablet 5 mg PO UD PRN pain 08/11/24 08/11/24 Unknown Active Medications Generic Name Dose Route Start Last Admin Trade Name Navya PRN Reason Stop Dose Admin Acetaminophen 650 mg 08/12/24 00:39 08/12/24 09:41 Acetaminophen 325 Mg Tab PO 09/11/24 00:38 650 mg Q4H PRN Administration Pain or Fever Enoxaparin Sodium 40 mg 08/12/24 09:00 08/12/24 09:35 Enoxaparin Inj 40 Mg/0.4 Ml Syr SQ 09/11/24 08:59 40 mg Q24H GIOVANNY Administration Hydromorphone HCl 0.25 mg 08/12/24 00:39 08/12/24 01:25 Hydromorphone Inj 0.5 Mg/0.5 Ml Syr IV 08/26/24 00:38 0.25 mg Q3H PRN Administration Moderate Pain (Scale 4, 5, 6) Sodium Chloride 1,000 mls @ 80 mls/hr 08/12/24 00:39 08/12/24 01:28 Nss IV 08/12/24 13:08 80 mls/hr .[id number] GIOVANNY Administration Prednisone 60 mg 08/12/24 11:00 08/12/24 10:57 Prednisone 20 Mg Tab PO 09/11/24 10:59 60 mg DAILY GIOVANNY Administration
--- NOTE | 2024-08-12 11:18 | CT Scan Report ---
CT ANGIOGRAPHY OF THE NECK WITH CONTRAST CLINICAL HISTORY: Headaches. Evaluate for giant cell arteritis. COMPARISON STUDY: No previous studies for comparison. Technique: CT angiography of the carotid and vertebral arteries was obtained using Optiray and 3D rec onstruction on an independent workstation. NASCET criteria was utilized. Automated exposure control was utilized for the study. A dose lowering technique was utilized adhering to the principles of ALA RA. Findings: Visualized portions of the lung apices are unremarkable. There are no cervical spine fractu res. There is no cervical lymphadenopathy. The bilateral common carotid, cervical internal carotid an d vertebral arteries are patent. No stenosis, dissection or aneurysm is identified within the neck. T here is minimal atherosclerotic plaque within the proximal bilateral internal carotid arteries withou t stenosis. CTA of the head will be reported separately. No significant vascular wall thickening is i dentified within the major vessels of the neck. IMPRESSION: Unremarkable CTA of the neck. Minimal plaque within the proximal bilateral internal carotid arteries without stenosis. ACT 112: Negative or not required by law. Electronically signed by: Sarabjit Matamoros M.D. 08/12/2024 11:16 AM
--- NOTE | 2024-08-12 11:25 | CT Scan Report ---
CTA ANGIOGRAPHY OF THE HEAD CLINICAL HISTORY: Headaches. Fever. Evaluate for giant cell arteritis. COMPARISON STUDY: Head CT August 11, 2024. MRI of the brain August 11, 2024. TECHNIQUE: Helical axial images of the head were obtained following uneventful intravenous administr ation of 112 cc of Optiray. Sagittal and coronal reconstructions were viewed as well as maximal inten sity projections on an independent 3-D workstation. Automated exposure control was utilized for the study. A dose lowering technique was utilized adhering to the principles of ALARA. CT DOSE: 426.58 mGy.cm FINDINGS: No acute intracranial hemorrhage is identified on contrast enhanced exam. Ventricular syste m is unremarkable. Basal cisterns are patent. A small amount of secretions within the right maxillary sinus are present. The bilateral M1, M2, A1 and A2 segments are patent. There is mild plaque within the cavernous carotids without stenosis. The posterior circulation is also intact. No intracranial an eurysm. No significant vascular irregularity is identified. No vascular wall thickening is identified . IMPRESSION: 1. Unremarkable CTA of the head. No large vessel occlusion. Mild atherosclerotic plaque within the ca vernous carotids without stenosis. 2. No CT evidence for vasculitis although CTA may be normal in the setting of vasculitis. ACT 112: Negative or not required by law. Electronically signed by: Sarabjit Matamoros M.D. 08/12/2024 11:23 AM
--- NOTE | 2024-08-12 15:12 | Hospitalist Progress Note ---
Date of Service August 12, 2024 Assessment & Plan (1) Headache: Plan: 78-year-old female with past med history significant for hypothyroidism, history of Aline's thyroiditis, dermatitis, senile osteoporosis was having fevers for last 9 to 10 days associated with a headache and neck pains. Patient went to PCP office on 08/07/2024 with facial swelling headache and difficulty chewing. She was having difficulty chewing struggle to open her mouth. Patient was started on Augmentin. CT of the neck was ordered which was unremarkable except showed mild/moderate bilateral temporomandibular joint arthrosis. Yesterday also had temperature spike. Still having headache ,whole front of the face was hurting and eyes were hurting. So came to the ER today. CT head was done which was negative. Bio fire was negative. Labs are okay. Procalcitonin was negativ e. ER tried for lumbar puncture but was unsuccessful and it was done by radiology. CSF protein was 49 all other CSF studies were negative so far. ER talked to the neurology and recommended MRI of of the head with contrast and also MRV which also came back unremarkable. Currently afebrile. Hemodynamics are okay. With pain medications the headache is better. Currently no runny nose or sore throat. Has dry cough. Denies chest pain or shortness of breath. Denies body ache. Appetite is okay. No abdominal pain. Normal bowel and bladder movements. Ambulating okay. Patient says there was a mice in her car engine and it was cleaned in March. Otherwise denies any exposure to any animals. Headache Neck pain -concern for aseptic meningitis vs. GCA -GCA concern given pounding headache and jaw pain, I started prednisone then talked to neuro, neuro agrees GCA cannot be ruled out, temporal artery biopsy needed -And fevers going on for last 9 to 10 days -Labs okay except for ESR 76 and CRP 16 and alkaline phosphatase 113. UA is negative ,respiratory BioFire negative. Q fever and TYPHUS FEVER PENDING -Chest x-ray negative -Status post lumbar puncture. CSF total protein 49 slightly elevated . Other CSF studies negative so far -Brain MRI with and without contrast and brain MRV unremarkable Plan: -start prednisone 60 mg for concern for GCA -neurology consulted, appreciate recs -general surgery consulted for temporal artery biopsy, appreciate assistance, possible biopsy Wednesday -autoimmune panel ordered -given fevers, ID consulted given no clear source Hypothyroidism -On Synthyroid Feeding/fluids: regular Analgesia: tylenol/toradol Sedation: na Thromboprophylaxis: lovenox Head up position: na Ulcer prophylaxis: na Glycemic control: na Spontaneous breathing trial: na Bowel care: miralax prn Indwelling catheter removal: na Deescalation of antibiotics: na I spent a total of 60 minutes in direct patient care, including [id number] time with the patient and/or family, reviewing medical records, ordering and reviewing diagnostic tests, and coordinating care with other healthcare providers. This time includes: history taking, physical examination, medical decision making, counseling, ECG interpretation, imaging interpretation, lab interpretation, orders, and education, excluding time spent in the performance of separately billed services. Admission and Anticipated Discharge Date Admission Date: August 11, 2024 Subjective Patient seen and examined at bedside. at bedside as well. She states she continues to have a headache on sides of head with radiation into the jaw. Eyes hurt as well. Minimal vision changes. Discussed case with neurology, after my exam, GCA cannot be ruled out, started prednisone and will pursue temporal artery biopsy at this time. Review of Systems Review of Systems: CONSTITUTIONAL: headache EYES: Patient denies any visual symptoms. EARS, NOSE, AND THROAT: jaw pain CARDIOVASCULAR: Patient denies chest pains, palpitations, orthopnea and paroxysmal nocturnal dyspnea. RESPIRATORY: No dyspnea on exertion, no wheezing or cough. GI: No nausea, vomiting, diarrhea, constipation, abdominal pain, hematochezia or melena. : No urinary hesitancy or dribbling. No nocturia or urinary frequency. No abnormal urethral discharge. MUSCULOSKELETAL: No myalgias or arthralgias. NEUROLOGIC: No chronic headaches, no seizures. Patient denies numbness, tingling or weakness. PSYCHIATRIC: Patient denies problems with mood disturbance. No problems with anxiety. ENDOCRINE: No excessive urination or excessive thirst. DERMATOLOGIC: Patient denies any rashes or skin changes. Physical Exam Physical Exam: Gen: A&O 3 NAD HEENT: NCAT, EOMI, not icteric. External ears normal. No rhinorrhea. Moist mucous membranes. Tenderness to palpation on right temporal frontal region of forehead. Neck: Supple, full range of motion, no observable masses, No meningeal sign. Lungs: No Respiratory distress. CV: RRR, no edema. Abdomen: Soft, nondistended, No rebound tenderness. MSK: No joint swelling, no redness. Skin: No rashes, petechiae, lesions. Normal color per patient. Neuro: Normal Gait, Grossly intact. Psych: Appropriate for situation. Results & Data Results & Data Vital Signs (Past 12 Hours) Vital Signs Pulse Pulse Pulse Resp BP Pulse Ox O2 Del Method 08/12/24 12:00 62 17 120/69 96 Room Air 08/12/24 07:02 68 08/12/24 06:00 81 81 16 123/70 95 Room Air 08/12/24 04:00 70 20 127/70 93 Room Air Laboratory Results -personally reviewed, ESR and CRP are elevated
[2024-08-12] MEDS ORDERED: ACETAMINOPHEN 500 MG TAB PO PRN (15:53)
[2024-08-12] MEDS ORDERED: KETOROLAC TROMETHAMINE 15 MG/ML VIAL IV PRN (15:54)
[2024-08-12] MEDS: PANTOprazole 40 MG TAB PO SCH (16:47)
[2024-08-12] MEDS ORDERED: ALBUTEROL HFA 8 GM INHALER INH PRN (19:28)
--- NOTE | 2024-08-12 20:17 | Surgery Consultation ---
<Statement entered by Ian Resendez, - 08/13/24 10:48> I have seen and examined this patient this am. She would like to move forward with a temporal artery biopsy and this will be planned for tomorrow. Time per operating room. Consent will be obtained in the am. NPO after MN, hold anticoagulants, ASA and am steroid dose. Date of Consultation August 12, 2024 Assessment & Plan (1) Headache: The patient is an 78-year-old female who has been admitted to the hospital since 08/11/2024 with concerns of ongoing headache, neck pain, facial swelling/jaw pain, and fever for over a week. Since admission her workup has consisted of LP along with Head/Neck CTs and MRIs. CT of the neck did show some mild/moderate bilateral temporomandibular joint arthrosis however remaining of imaging has been unremarkable for any acute process. The patient continues with headache, mostly on the right side however has improved with pain medication. The patient has been initiated on steroids as well and was evaluated by Neurology. I discussed with the patient about possibly undergoing temporal artery biopsy to further evaluate for TA. Will discuss patient's case with attending surgeon, Dr. Resendez, and final surgical recommendations to follow. If patient warrants biopsy would recommend holding Lovenox 24 hours prior. History of Present Illness Reason for Consultation: possible temporal arteritis History of Present Illness The patient is an 78-year-old female who has been admitted to the hospital since 08/11/2024 with concerns of ongoing headache, neck pain, and fever for roughly a weeks time. The patient states originally she started with a severe headache and also noted to have some right-sided facial swelling. She had seen her PCP and she was prescribed Augmentin and has undergone CT imaging of her face as an outpatient. She tells me that CT imaging at that time did not show any significant findings. The patient contributed her symptoms to possible sinusitis and continued symptomatic treatment at home. She also reports having a fever a few days ago as well. However, her symptoms continued despite antibiotics and her PCP ultimately recommended she come to the emergency department for further evaluation due to her persistent symptoms. The patient had undergone an LP for CSF evaluation which only showed a slightly elevated protein and meningitis panel was also unremarkable. The patient has also undergone CTA head/neck and MRI imaging which did not show any evidence of acute findings. The patient was started on steroids today and Neurology has also been consulted who also evaluated the patient via telemedicine. General surgery team was also consulted for concern of TA and possible biopsy if indicated. The patient was seen and evaluated this evening at bedside, she is resting comfortably, VSS, and NAD. The patient states she continues to have a headache, however it has improved with pain medication. She states it mostly is on her right side however is at times on the left as well. She complains of feeling pressure behind both of her eyes however denies any visual disturbances. She also has had jaw pain, mostly on the right as well. Allergies Allergy/AdvReac Type Severity Reaction Status Date / Time No Known Drug Allergies Allergy Unknown . Verified 12/23/23 11:46 nickel AdvReac Mild SKIN Verified 12/23/23 11:46 IRRITATION Home Medications Medication Instructions Recorded Confirmed Type albuterol sulfate 90 mcg/actuation 2 - 4 puff inhalation Q6H PRN 05/22/20 08/11/24 Rx aerosol inhaler Shortness Of Breath #6.7 grams ascorbate calcium (vitamin C) 500 500 mg PO QAM 06/20/20 08/11/24 History mg tablet cholecalciferol (vitamin D3) 25 25 mcg PO UD 06/20/20 08/11/24 History mcg (1,000 unit) capsule omega-3 fatty acids 1,000 mg 1,000 mg PO UD 06/20/20 08/11/24 History capsule (Fish Oil Concentrate) levothyroxine 50 mcg tablet 50 mcg PO QAM 01/07/23 08/11/24 History (Synthroid) aspirin 81 mg tablet,delayed 81 mg PO UD 12/13/23 08/11/24 History release amoxicillin 500 mg tablet 2,000 mg PO ONCE PRN dental karal 08/11/24 08/11/24 History amoxicillin 875 mg-potassium 1 tab PO BID 08/11/24 08/11/24 History clavulanate 125 mg tablet oxycodone 5 mg tablet 5 mg PO UD PRN pain 08/11/24 08/11/24 History Patient History Medical History Urinary incontinence Ulnar neuropathy at wrist Bilateral hearing loss Osteoarthritis of right knee Insomnia Hypothyroidism History of colon polyps History of carpal tunnel syndrome Bilateral tinnitus History of COVID-19 Chronic back pain Arthritis Migraine SOB (shortness of breath) Osteoporosis Surgical History History of total right knee replacement (TKR) Perforated nasal septum S/P wrist surgery History of anesthesia reaction History of colonoscopy [place] teeth extracted History of arthroscopic knee surgery History of hysteroscopy Family History Mother Family hx of colon cancer Colorectal cancer Father Prostate cancer Other Osteoporosis Denies family history of Ovarian cancer Myocardial infarction Breast cancer Social History Smoking Status: Never smoker Second Hand Exposure: Yes (as child); Do You Dip or Chew Tobacco: No; Hx Alcohol Use: Yes Alcohol type: wine Alcohol Intake Frequency: Monthly or Less Hx Substance Use: No Preferred Language: [place] Communication Ability: Effective Visual Impairment: No Limitations Hearing Ability: Hard of Hearing Billet Examiner Required: No Beliefs That Will Affect Care: None marital status: Current Living Situation: Spouse current occupational status: retired Feels Safe at Home: Yes Childhood Exposure to Second-Hand Smoke: Yes Diet: regular Dental Care, Regularly: Yes Physical Activity Frequency: 3-4 Times per Week Seatbelt Use: always Sunscreen Use: Yes Assistive Devices: Glasses and Hearing Aid - Bilateral Review of Systems Review of Systems: All systems reviewed & are unremarkable except as noted in HPI & below Physical Exam Constitutional: WD/WN, vitals as above ENMT: +TTP over right temporal/frontal region Respiratory: normal respiratory effort, lungs clear to auscultation Cardiovascular: RRR, no murmur, no edema Gastrointestinal (Abdomen): normal bowel sounds, soft, nontender, no hepatosplenomegaly Skin: no rashes, warm and dry Psychiatric: A+Ox3, euthymic affect Results & Data Vital Signs (Past 12 Hours) Vital Signs Temp Pulse Pulse Pulse Resp BP Pulse Ox 08/12/24 19:43 36.8 C 66 15 120/70 97 08/12/24 17:25 75 08/12/24 12:00 62 17 120/69 96 O2 Del Method 08/12/24 19:43 Room Air 08/12/24 17:25 08/12/24 12:00 Room Air Diagnostic Findings R lumbar puncture diagnostic CLINICAL HISTORY: rule out meningitis Fluoroscopy time: 35 seconds. COMPARISON STUDY: None FINDINGS: The procedure was discussed and questions answered. Consent was obtained. Ms. Lowe was positioned prone on the fluoroscopy table and timeout was performed. The low back was prepped and draped in standard sterile fashion. 1% lidocaine was used for local anesthesia. A 22-gauge spinal needle was advanced at the L4-5 level initially without success. Additional lidocaine was administered. 22-gauge spinal needle was advanced at the L5-S1 level into the thecal sac. Clear CSF appeared spontaneously at the needle. 2.5 cc of clear CSF was collected in each of 4 tubes. Needle was removed. Hemostasis was obtained with manual compression. Sterile dressing was applied. IMPRESSION: Lumbar puncture as described. EXAM: MR Head Without and With Intravenous Contrast CLINICAL HISTORY: Reason for exam: headache, fever. TECHNIQUE: Magnetic resonance images of the head/brain without and with intravenous contrast in multiple planes. CONTRAST: Patient received 6.3 gadavist of IV contrast COMPARISON: CT head FINDINGS: Brain: No diffusion restriction to suggest acute cerebral ischemia. No acute intracranial hemorrhage. Senescent globus pallidus mineralization. Proximal intracranial flow voids appear normal. Parenchymal volume appears normal for age. No mass-effect or shift. Periventricular deep cerebral white matter foci of FLAIR signal hyperintensity in keeping with mild chronic small vessel ischemic change. No intracranial mass or abnormal enhancement. Ventricles: Unremarkable. No hydrocephalus. Bones/joints: Unremarkable. No acute fracture. Sinuses: Mild mucosal thickening in the maxillary sinuses. Mastoid air cells: Unremarkable as visualized. No mastoid effusion. Orbits: Lens replacements. IMPRESSION: 1. No diffusion restriction to suggest acute cerebral ischemia. No acute intracranial hemorrhage. 2. No intracranial mass or abnormal enhancement. EXAM: MR Venography Head Without Intravenous Contrast CLINICAL HISTORY: Reason for exam: headache. TECHNIQUE: Magnetic resonance venography images of the head without intravenous contrast. COMPARISON: No relevant prior studies available. FINDINGS: Superior sagittal sinus: Unremarkable. Patent. Straight sinus: Unremarkable. Patent. Transverse sinuses: Unremarkable. Patent. Sigmoid sinuses: Unremarkable. Patent. Internal jugular veins: Unremarkable as visualized. Internal cerebral and cortical veins: Unremarkable as visualized. IMPRESSION: Normal head/brain MRV. CTA ANGIOGRAPHY OF THE HEAD CLINICAL HISTORY: Headaches. Fever. Evaluate for giant cell arteritis. COMPARISON STUDY: Head CT August 11, 2024. MRI of the brain August 11, 2024. TECHNIQUE: Helical axial images of the head were obtained following uneventful intravenous administration of 112 cc of Optiray. Sagittal and coronal reconstructions were viewed as well as maximal intensity projections on an independent 3-D workstation. Automated exposure control was utilized for the study. A dose lowering technique was utilized adhering to the principles of ALARA. CT DOSE: 426.58 mGy.cm FINDINGS: No acute intracranial hemorrhage is identified on contrast enhanced exam. Ventricular system is unremarkable. Basal cisterns are patent. A small amount of secretions within the right maxillary sinus are present. The bilateral M1, M2, A1 and A2 segments are patent. There is mild plaque within the cavernous carotids without stenosis. The posterior circulation is also intact. No intracranial aneurysm. No significant vascular irregularity is identified. No vascular wall thickening is identified. IMPRESSION: 1. Unremarkable CTA of the head. No large vessel occlusion. Mild atherosclerotic plaque within the cavernous carotids without stenosis. 2. No CT evidence for vasculitis although CTA may be normal in the setting of vasculitis. CT ANGIOGRAPHY OF THE NECK WITH CONTRAST CLINICAL HISTORY: Headaches. Evaluate for giant cell arteritis. COMPARISON STUDY: No previous studies for comparison. Technique: CT angiography of the carotid and vertebral arteries was obtained using Optiray and 3D reconstruction on an independent workstation. NASCET criteria was utilized. Automated exposure control was utilized for the study. A dose lowering technique was utilized adhering to the principles of ALARA. Findings: Visualized portions of the lung apices are unremarkable. There are no cervical spine fractures. There is no cervical lymphadenopathy. The bilateral c ommon carotid, cervical internal carotid and vertebral arteries are patent. No stenosis, dissection or aneurysm is identified within the neck. There is minimal atherosclerotic plaque within the proximal bilateral internal carotid arteries without stenosis. CTA of the head will be reported separately. No significant vascular wall thickening is identified within the major vessels of the neck. IMPRESSION: Unremarkable CTA of the neck. Minimal plaque within the proximal bilateral internal carotid arteries without stenosis. PG Care Time/CCT Total # of Minutes Spent Total Time Spent with Patient: Total time spent is greater than 50% in coordination of care (as documented) at patient's floor/unit and/or counseling patient: [place] [address] INT INP/OBS CARE 1/40MIN Patient Type New History Problem Focused Exam Problem Focused Medical Decision Making Straight Forward Diagnoses Headache R51.9
[2024-08-13] MEDS: LEVOTHYROXINE SODIUM 50 MCG TABLET PO SCH (06:06)
[2024-08-13 06:36] LABS: Hemoglobin 11.4 g/dl (12.0-16.0); Mean Corpuscular Hemoglobin 31.1 pg (25.0-34.0); Mean Corpuscular Hgb Conc 32.6 g/dL (32.0-36.0); Mean Corpuscular Volume 95.4 fL (80.0-100.0); Mean Platelet Volume 9.1 fL (9.4-12.4); Platelet Count 302 K/uL (130-400); RDW Coefficient of Variation 12.7 % (11.5-14.5); RDW Standard Deviation 44.3 fL (36.4-46.3); Red Blood Count 3.67 M/uL (4.20-5.40); White Blood Count 9.72 K/ul (4.8-10.8)
[2024-08-13 07:04] LABS: BUN Creatinine Ratio 21.7 (10-20); Calcium 8.4 mg/dl (8.6-10.3); Potassium 4.2 mmol/L (3.5-5.1)
[2024-08-13] MEDS: ASPIRIN 81 MG ECTAB PO SCH (07:26)
[2024-08-13] MEDS: CHOLECALCIFEROL 25 MCG (1000 UNITS) TAB PO SCH (07:26)
[2024-08-13] MEDS: ASCORBIC ACID 500 MG TAB PO SCH (07:27)
[2024-08-13] MEDS ORDERED: KETOROLAC TROMETHAMINE 15 MG/ML VIAL IV PRN (10:44)
--- NOTE | 2024-08-13 11:45 | Hospitalist Progress Note ---
Date of Service August 13, 2024 Assessment & Plan (1) Headache: Plan: 78-year-old female with past med history significant for hypothyroidism, history of Aline's thyroiditis, dermatitis, senile osteoporosis was having fevers for last 9 to 10 days associated with a headache and neck pains. Patient went to PCP office on 08/07/2024 with facial swelling headache and difficulty chewing. She was having difficulty chewing struggle to open her mouth. Patient was started on Augmentin. CT of the neck was ordered which was unremarkable except showed mild/moderate bilateral temporomandibular joint arthrosis. Yesterday also had temperature spike. Still having headache ,whole front of the face was hurting and eyes were hurting. So came to the ER today. CT head was done which was negative. Bio fire was negative. Labs are okay. Procalcitonin was negativ e. ER tried for lumbar puncture but was unsuccessful and it was done by radiology. CSF protein was 49 all other CSF studies were negative so far. ER talked to the neurology and recommended MRI of of the head with contrast and also MRV which also came back unremarkable. Currently afebrile. Hemodynamics are okay. With pain medications the headache is better. Currently no runny nose or sore throat. Has dry cough. Denies chest pain or shortness of breath. Denies body ache. Appetite is okay. No abdominal pain. Normal bowel and bladder movements. Ambulating okay. Patient says there was a mice in her car engine and it was cleaned in March. Otherwise denies any exposure to any animals. Headache Neck pain R/o GCA R/o Aseptic Meningitis -concern for aseptic meningitis vs. GCA -GCA concern given pounding headache and jaw pain, I started prednisone then talked to neuro, neuro agrees GCA cannot be ruled out, temporal artery biopsy needed -Labs okay except for ESR 76 and CRP 16 and alkaline phosphatase 113. UA is negative ,respiratory BioFire negative. Q fever and TYPHUS FEVER PENDING -Status post lumbar puncture. CSF total protein 49 slightly elevated . Other CSF studies negative so far -Brain MRI with and without contrast and brain MRV unremarkable Plan: -continue prednisone 60 mg for concern for GCA -neurology consulted, appreciate recs -general surgery consulted for temporal artery biopsy, appreciate assistance, possible biopsy Wednesday -autoimmune panel ordered -given fevers, ID consulted given no clear source -scheduled tylenol, prn toradol for headache, ice pack as well Hypothyroidism -On Synthyroid Feeding/fluids: regular Analgesia: tylenol/toradol Sedation: na Thromboprophylaxis: lovenox Head up position: na Ulcer prophylaxis: na Glycemic control: na Spontaneous breathing trial: na Bowel care: miralax prn Indwelling catheter removal: na Deescalation of antibiotics: na I spent a total of 45 minutes in direct patient care, including [id number] time with the patient and/or family, reviewing medical records, ordering and reviewing diagnostic tests, and coordinating care with other healthcare providers. This time includes: history taking, physical examination, medical decision making, counseling, ECG interpretation, imaging interpretation, lab interpretation, orders, and education, excluding time spent in the performance of separately billed services. Admission and Anticipated Discharge Date Admission Date: August 11, 2024 Subjective Patient seen and examined at bedside. Patient continues to have pain in the jaw and a headache. Wondering if she can get the biopsy done outpatient. Discussed that this is GCA we need a tissue diagnosis soon as possible, [place] goes down with every day of being on steroids. She is understanding and appreciative of the update. Review of Systems Review of Systems: CONSTITUTIONAL: headache EYES: Patient denies any visual symptoms. EARS, NOSE, AND THROAT: jaw pain CARDIOVASCULAR: Patient denies chest pains, palpitations, orthopnea and paroxysmal nocturnal dyspnea. RESPIRATORY: No dyspnea on exertion, no wheezing or cough. GI: No nausea, vomiting, diarrhea, constipation, abdominal pain, hematochezia or melena. : No urinary hesitancy or dribbling. No nocturia or urinary frequency. No abnormal urethral discharge. MUSCULOSKELETAL: No myalgias or arthralgias. NEUROLOGIC: No chronic headaches, no seizures. Patient denies numbness, tingling or weakness. PSYCHIATRIC: Patient denies problems with mood disturbance. No problems with anxiety. ENDOCRINE: No excessive urination or excessive thirst. DERMATOLOGIC: Patient denies any rashes or skin changes. Physical Exam Physical Exam: Gen: A&O 3 NAD HEENT: NCAT, EOMI, not icteric. External ears normal. No rhinorrhea. Moist mucous membranes. Tenderness to palpation on right temporal frontal region of forehead. Neck: Supple, full range of motion, no observable masses, No meningeal sign. Lungs: No Respiratory distress. CV: RRR, no edema. Abdomen: Soft, nondistended, No rebound tenderness. MSK: No joint swelling, no redness. Skin: No rashes, petechiae, lesions. Normal color per patient. Neuro: Normal Gait, Grossly intact. Psych: Appropriate for situation. Results & Data Results & Data Vital Signs (Past 12 Hours) Vital Signs Temp Pulse Pulse Resp BP Pulse Ox O2 Del Method 08/13/24 11:20 36.7 C 74 18 112/72 96 Room Air 08/13/24 07:40 36.8 C 84 18 155/83 H 98 Room Air 08/13/24 07:04 62 08/13/24 02:48 36.6 C 64 15 124/71 96 Room Air Laboratory Results -personally reviewed, creatinine stable, no leukocytosis Medications Administered Ascorbic Acid (Ascorbic Acid 500 Mg Tab) 500 mg PO QAM [facility] Stop: 09/12/24 08:59 Last Admin: 08/13/24 07:27 Dose: 500 mg Documented By: BE Aspirin (Aspirin 81 Mg Ectab) 81 mg PO DAILY GIOVANNY Stop: 09/12/24 08:59 Last Admin: 08/13/24 07:26 Dose: 81 mg Documented By: BE Enoxaparin Sodium (Enoxaparin Inj 40 Mg/0.4 Ml Syr) 40 mg SQ Q24H GIOVANNY Stop: 09/11/24 08:59 Last Admin: 08/13/24 07:26 Dose: 40 mg Documented By: Admin: 08/12/24 09:35 Dose: 40 mg Documented By: MARIANO Levothyroxine Sodium (Levothyroxine Sodium 50 Mcg Tablet) 50 mcg PO DAILYBB GIOVANNY Stop: 09/12/24 06:29 Last Admin: 08/13/24 06:06 Dose: 50 mcg Documented By: DAMEON Pantoprazole Sodium (Pantoprazole 40 Mg Tab) 40 mg PO QAM [facility] Stop: 09/11/24 15:59 Last Admin: 08/13/24 07:26 Dose: 40 mg Documented By: Admin: 08/12/24 16:47 Dose: 40 mg Documented By: STEPH Prednisone (Prednisone 20 Mg Tab) 60 mg PO DAILY GIOVANNY Stop: 09/11/24 10:59 Last Admin: 08/13/24 07:25 Dose: 60 mg Documented By: Admin: 08/12/24 10:57 Dose: 60 mg Documented By: MARIANO Vitamin D (Cholecalciferol 25 Mcg (1000 Units) Tab) [facility] [place]: 09/12/24 08:59 Last Admin: 08/13/24 07:26 Dose: 25 mcg Documented By: BE (1) Headache Headache type: tension-type Headache chronicity pattern: acute headache Intractability: intractable Qualified Code(s): G44.201 - Tension-type headache, unspecified, intractable
[2024-08-13] MEDS: ACETAMINOPHEN 500 MG TAB PO SCH (14:13)
[2024-08-14 07:41] LABS: Hematocrit (blood only) 35.7 % (37.0-47.0); Hemoglobin 11.5 g/dl (12.0-16.0); Mean Corpuscular Hemoglobin 31.3 pg (25.0-34.0); Mean Corpuscular Hgb Conc 32.2 g/dL (32.0-36.0); Mean Platelet Volume 9.3 fL (9.4-12.4); Platelet Count 333 K/uL (130-400); RDW Coefficient of Variation 13.1 % (11.5-14.5); RDW Standard Deviation 47.1 fL (36.4-46.3); Red Blood Count 3.68 M/uL (4.20-5.40); White Blood Count 7.47 K/ul (4.8-10.8)
[2024-08-14 07:47] LABS: BUN Creatinine Ratio 20.8 (10-20); Calcium 8.6 mg/dl (8.6-10.3); Creatinine Clr Calc Pharmacy 54.4 ml/min; Potassium 4.2 mmol/L (3.5-5.1)
[2024-08-14] MEDS ORDERED: Nursing to Pharmacy Communication SCH (09:00)
[2024-08-14] MEDS ORDERED: fentaNYL citrate PF 100 MCG/2 ML VIAL ONE (09:23)
[2024-08-14] MEDS ORDERED: LIDOCAINE 2% 2 ML VIAL/AMP(20MG/ML) INFIL ONE (09:23)
[2024-08-14] MEDS ORDERED: PROPOFOL IV EMULSION 10 MG/ML 20 ML VIAL IV ONE (09:23)
--- NOTE | 2024-08-14 09:25 | History & Physical Bridge Note ---
Date of Service August 14, 2024 History & Physical Bridge Note I have examined the patient, reviewed the History & Physical and in the interval since the performance of the History & Physical I have noted the following changes of clinical significance: no changes noted. She will be taken to the operating room for right temporal artery biopsy. The details of the procedure have been explained to her including the risks and benefits. She expressed understanding of this explanation and all of her questions were answered. Consent was obtained.
[2024-08-14] MEDS: LR 15ML/HR IV SCH (09:30)
[2024-08-14] MEDS ORDERED: ONDANSETRON INJ 2 MG/ML 2 ML VIAL IV PRN (09:40)
[2024-08-14] MEDS ORDERED: ePHEDrine sulfate 50 MG/ML AMP IV PRN (09:40)
[2024-08-14] MEDS ORDERED: ATROPINE SULFATE 0.1 MG/ML 10ML SYR IV PRN (09:40)
[2024-08-14] MEDS ORDERED: fentaNYL citrate PF 100 MCG/2 ML VIAL IV PRN (09:40)
--- NOTE | 2024-08-14 09:41 | Anesthesiology Consultation ---
Date of Service August 14, 2024 Assessment & Plan Chart Review Chart Review: Acceptable Risk for Surgery and Patient NOT seen in Pre Admission Testing Consults Requested none ASA ASA2 Proposed Anesthesia Anesthesia Type: MAC Risk / Benefits Reviewed With: PT / POA / Parent / Guardian, Accepts Plan and Informed Consent Obtained History Surgery Operation Date: 08/14/24 08:20 Proposed Procedures p Right Temporal Artery Biopsy - Ian Resendez, Height/Weight Height: 5 ft 2 in Weight: 63.1 kg Allergies Allergy/AdvReac Type Severity Reaction Status Date / Time No Known Drug Allergies Allergy Unknown . Verified 08/14/24 09:16 nickel AdvReac Mild SKIN Verified 08/14/24 09:16 IRRITATION Medications Home Medications Medication Instructions Recorded Confirmed Last Taken albuterol sulfate 90 mcg/actuation 2 - 4 puff inhalation Q6H PRN 05/22/20 08/11/24 10/11/23 aerosol inhaler Shortness Of Breath #6.7 grams ascorbate calcium (vitamin C) 500 500 mg PO QAM 06/20/20 08/11/24 10/15/23 mg tablet cholecalciferol (vitamin D3) 25 25 mcg PO UD 06/20/20 08/11/24 10/15/23 mcg (1,000 unit) capsule omega-3 fatty acids 1,000 mg 1,000 mg PO UD 06/20/20 08/11/24 10/15/23 capsule (Fish Oil Concentrate) levothyroxine 50 mcg tablet 50 mcg PO QAM 01/07/23 08/11/24 12/23/23 04:00 (Synthroid) aspirin 81 mg tablet,delayed 81 mg PO UD 12/13/23 08/11/24 Unknown release amoxicillin 500 mg tablet 2,000 mg PO ONCE PRN dental karla 08/11/24 08/11/24 Unknown amoxicillin 875 mg-potassium 1 tab PO BID 08/11/24 08/11/24 Unknown clavulanate 125 mg tablet oxycodone 5 mg tablet 5 mg PO UD PRN pain 08/11/24 08/11/24 Unknown Active Medications Generic Name Dose Route Start Last Admin Trade Name Freq PRN Reason Stop Dose Admin Acetaminophen 1,000 mg 08/13/24 14:00 08/14/24 05:55 Acetaminophen 500 Mg Tab PO 09/12/24 13:59 Not Given Q8 GIOVANNY Ascorbic Acid 500 mg 08/13/24 09:00 08/13/24 07:27 Ascorbic Acid 500 Mg Tab PO 09/12/24 08:59 500 mg QAM GIOVANNY Administration Aspirin 81 mg 08/13/24 09:00 08/13/24 07:26 Aspirin 81 Mg Ectab PO 09/12/24 08:59 81 mg DAILY GIOVANNY Administration Enoxaparin Sodium 40 mg 08/12/24 09:00 08/13/24 07:26 Enoxaparin Inj 40 Mg/0.4 Ml Syr SQ 09/11/24 08:59 40 mg Q24H GIOVANNY Administration Lactated Ringer's 1,000 mls @ 15 mls/hr 08/14/24 06:00 08/14/24 09:30 Lr IV 08/15/24 05:59 15 mls/hr .Q24H GIOVANNY Administration Levothyroxine Sodium 50 mcg 08/13/24 06:30 08/14/24 05:55 Levothyroxine Sodium 50 Mcg Tablet PO 09/12/24 06:29 50 mcg DAILYBB GIOVANNY Administration Pantoprazole Sodium 40 mg 08/12/24 16:00 08/13/24 07:26 Pantoprazole 40 Mg Tab PO 09/11/24 15:59 40 mg QAM GIOVANNY Administration Prednisone 60 mg 08/12/24 11:00 08/13/24 07:25 Prednisone 20 Mg Tab PO 09/11/24 10:59 60 mg DAILY GIOVANNY Administration Vitamin D 25 mcg 08/13/24 09:00 08/13/24 07:26 Cholecalciferol 25 Mcg (1000 Units) Tab PO 09/12/24 08:59 25 mcg QAM GIOVANNY Administration NPO Date Last Intake of Fluids: 08/14/24 Last Intake of Fluids Comment: sip of water with meds this am Date Last Intake of Solids: 08/13/24 Time Last Intake of Solids: 21:00 Past Medical History Medical History Urinary incontinence Ulnar neuropathy at wrist Bilateral hearing loss Osteoarthritis of right knee Insomnia Hypothyroidism History of colon polyps History of carpal tunnel syndrome Bilateral tinnitus History of COVID-19 Chronic back pain Arthritis Migraine SOB (shortness of breath) Osteoporosis Exercise / Class Metabolic Activity II 4-5 Yardwork/Stairs/Walk up hill Past Family History Family History Mother Family hx of colon cancer Colorectal cancer Father Prostate cancer Other Osteoporosis Denies family history of Ovarian cancer Myocardial infarction Breast cancer Past Surgical History Surgical History History of total right knee replacement (TKR) Perforated nasal septum S/P wrist surgery History of anesthesia reaction History of colonoscopy [place] teeth extracted History of arthroscopic knee surgery History of hysteroscopy Past Anesthesia History No Hx of Anesthesia Complications and No Family Hx of Anesthesia Complications History of PONV No Hx of PONV and No Hx of Motion Sickness Social History Smoking Status: Never smoker Do You Dip or Chew Tobacco: No Hx Alcohol Use: Yes Alcohol type: wine alcohol intake frequency: a few times a month Hx Substance Use: No substance use type: does not use Physical Exam Vital Signs Last Vital Signs Temp 36.5 C 08/14/24 09:18 Pulse 70 08/14/24 09:18 Resp 20 08/14/24 09:18 BP 149/86 H 08/14/24 09:18 Pulse Ox 98 08/14/24 09:18 O2 Del Method Room Air 08/14/24 09:18 ENMT Mouth: no dentition abnormality Thyromental Distance: > or= 3.5 Finger Breadths Mallampati Class: II Neck normal visual inspection Respiratory normal respiratory effort Auscultation: lungs clear to auscultation bilaterally Cardiovascular Rate/Rhythm: regular rate and regular rhythm Psychiatric Orientation: alert Testing Laboratory Results 08/14/24 06:33 08/14/24 06:33 Urine Color Yellow 08/11/24 21:07 Urine Appearance Clear (Clear) 08/11/24 21:07 Urine pH 6.0 (4.5-7.5) 08/11/24 21:07 Ur Specific [place] 1.027 (1.000-1.030) 08/11/24 21:07 Urine Protein Negative (Negative) 08/11/24 21:07 Urine Glucose (UA) Negative (Negative) 08/11/24 21:07 Urine Ketones Trace (Negative) H 08/11/24 21:07 Urine Nitrite Negative (Negative) 08/11/24 21:07 Ur Leukocyte Esterase Negative (Negative) 08/11/24 21:07 08/11/24 14:30 Aerobic Blood Culture - Preliminary Blood No growth in Aerobic bottle after 48 hours. Anaerobic Blood Culture - Preliminary No growth in Anaerobic bottle after 48 hours. 08/11/24 14:30 Aerobic Blood Culture - Preliminary Blood No growth in Aerobic bottle after 48 hours. Anaerobic Blood Culture - Preliminary No growth in Anaerobic bottle after 48 hours. 08/11/24 17:17 Gram Stain - Final Cerebral Spinal Fluid CSF Culture - Final No growth
[2024-08-14] MEDS ORDERED: ceFAZolin 330 MG/ML 1 GM VIAL ONE (10:09)
[2024-08-14] MEDS: ceFAZolin 2000MG 2,000 MG/15 ML SYR IV ONE (10:10)
[2024-08-14] MEDS: BACITRACIN OINT 14 GM TUBE ONE (10:56)
[2024-08-14] MEDS: LIDOCAINE 1% LOCAL 20 ML VIAL ONE (10:56)
--- NOTE | 2024-08-14 11:13 | Operative Report ---
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 Since admission her workup has consisted of LP along with Head/Neck CTs and MRIs. CT of the neck did show some mild/moderate bilateral temporomandibular joint arthrosis however remaining of imaging has been unremarkable for any acute process. The patient continues with headache, mostly on the right side however has improved with pain medication. The patient has been initiated on steroids as well and was evaluated by Neurology. I discussed with the patient about possibly undergoing temporal artery biopsy to further evaluate for TA. Description of Procedure The patient was brought back to the operating room and placed on the operating room table in supine position. She was connected to cardiac and oxygen monitoring, SCDs were applied to bilateral lower extremities and general anesthesia was administered. A secure airway was established. The right temporal region was prepped and draped in typical sterile fashion. An ultrasound had been used to confirm the location of the right temporal artery as well as palpation. A sterile marking pen was used to martin a line for planned incision over the artery. An incision was made with a 15 blade. Local anesthetic was used anesthetize skin and subcutaneous tissues. The depth of the subcutaneous tissue was dissected to reveal investing fascial tissue containing the temporal artery. This was dissected free of the surrounding investing tissue, a small branch was ligated using 2-0 silk suture and transected. A segment of the right temporal artery was isolated, ligated with 3-0 silk suture proximally and distally. Finally this segment was resected and sent to pathology in a label container for further analysis. The area was irrigated until local anesthetic and additional local anesthetic was used anesthetize the subcutaneous tissues. Hemostasis was achieved using gentle cautery during the dissection process and there was no bleeding at the end of the case. The wound was closed in 2 layers with 4-0 Vicryl followed by 5-0 Vicryl at the skin. The area was wiped clean with a saline soaked lap pad and dried. Dermabond was applied to the incision line. The patient tolerated the procedure well. She was awakened from anesthesia, the secure airway was removed and she was transferred to recovery in stable condition. I attest to the content of the Intraoperative Record and any orders documented therein. Any exceptions are noted below.
[2024-08-14 11:27] VITALS: TEMP 97.3
[2024-08-14 11:37] VITALS: RESP 20; O2SAT 99
--- NOTE | 2024-08-14 13:34 | Anesthesiology Progress Note ---
Date of Service August 14, 2024 Anesthesia Post Procedure Vital Signs Vital Signs: Temp Pulse Pulse Pulse Resp BP BP 08/14/24 11:35 65 20 127/73 08/14/24 11:25 67 22 134/63 08/14/24 11:15 36.3 C L 67 14 135/72 08/14/24 09:18 36.5 C 70 20 149/86 H 08/14/24 07:24 36.6 C 55 L 16 124/75 08/14/24 03:45 36.5 C 68 18 128/75 08/13/24 23:28 36.6 C 67 16 143/73 H 08/13/24 23:11 70 08/13/24 19:48 36.7 C 66 16 112/69 08/13/24 15:01 36.9 C 76 18 111/68 08/13/24 14:46 83 Pulse Ox O2 Del Method 08/14/24 11:35 99 Room Air 08/14/24 11:25 98 Room Air 08/14/24 11:15 99 Room Air 08/14/24 09:18 98 Room Air 08/14/24 07:24 97 Room Air 08/14/24 03:45 97 Room Air 08/13/24 23:28 99 Room Air 08/13/24 23:11 08/13/24 19:48 96 Room Air 08/13/24 15:01 96 Room Air 08/13/24 14:46 Pain Intensity Head: Pain Intensity: 4 Transfer of Care Handoff Completed per policy Notes Mental Status: alert / awake / arousable Patient Amnestic to Procedure: Yes Nausea / Vomiting: adequately controlled Pain: adequately controlled Airway Patency, RR, SpO2: stable & adequate BP & HR: stable & adequate Hydration State: stable & adequate Anesthetic Complications: no major complications apparent
[2024-08-14 13:56] VITALS: BP 128/75
--- NOTE | 2024-08-14 14:53 | Discharge Summary ---
Discharge Summary Date of Service August 14, 2024 Principal Dx & Hospital Course #1 = Principal Diagnosis (1) Headache: 78-year-old female with past med history significant for hypothyroidism, history of Aline's thyroiditis, dermatitis, senile osteoporosis was having fevers for last 9 to 10 days associated with a headache and neck pains. Patient went to PCP office on 08/07/2024 with facial swelling headache and difficulty chewing. She was having difficulty chewing struggle to open her mouth. Patient was started on Augmentin. CT of the neck was ordered which was unremarkable except showed mild/moderate bilateral temporomandibular joint arthrosis. Yesterday also had temperature spike. Still having headache ,whole front of the face was hurting and eyes were hurting. So came to the ER today. CT head was done which was negative. Bio fire was negative. Labs are okay. Procalcitonin was negative. ER tried for lumbar puncture but was unsuccessful and it was done by radiology. CSF protein was 49 all other CSF studies were negative so far. ER talked to the neurology and recommended MRI of of the head with contrast and also MRV which also came back unremarkable. Currently afebrile. Hemodynamics are okay. With pain medications the headache is better. Currently no runny nose or sore throat. Has dry cough. Denies chest pain or shortness of breath. Denies body ache. Appetite is okay. No abdominal pain. Normal bowel and blad jacquelin movements. Ambulating okay. Patient says there was a mice in her car engine and it was cleaned in March. Otherwise denies any exposure to any animals. Headache Neck pain R/o GCA R/o Aseptic Meningitis -concern for aseptic meningitis vs. GCA -GCA concern given pounding headache and jaw pain, I started prednisone then talked to neuro, neuro agrees GCA cannot be ruled out, temporal artery biopsy needed -Labs okay except for ESR 76 and CRP 16 and alkaline phosphatase 113. UA is negative ,respiratory BioFire negative. Q fever and TYPHUS FEVER PENDING -Status post lumbar puncture. CSF total protein 49 slightly elevated . Other CSF studies negative so far -Brain MRI with and without contrast and brain MRV unremarkable Plan: -continue prednisone 60 mg for concern for GCA -neurology consulted, appreciate recs -f/u temporal artery biopsy -autoimmune panel ordered Hypothyroidism -On Synthyroid Notes For Next Care Provider 78-year-old female with past med history significant for hypothyroidism, history of Aline's thyroiditis, dermatitis, senile osteoporosis was having fevers for last 9 to 10 days associated with a headache and neck pains. Patient went to PCP office on 08/07/2024 with facial swelling headache and difficulty chewing. In the ED, neurology consulted, recommended LP and MRI workups, admitted to medicine. On medicine, steroids started for GCA, lumbar studies not suggestive of overt meningitis/encephaloitis, imaging unremarkable. General surgery consulted for temporal artery biopsy. On 08/14/2024 patient medically stable for discharge home. Will need f/u with neurology, rheumatology, f/u biopsy results, taper down steroids. Medication Changes From Visit -prednisone, meloxicam Admission HPI Per Admitting Provider 78-year-old female with past med history significant for hypothyroidism, history of Aline's thyroiditis, dermatitis, senile osteoporosis was having fevers for last 9 to 10 days associated with a headache and neck pains. Patient went to PCP office on 08/07/2024 with facial swelling headache and difficulty chewing. She was having difficulty chewing struggle to open her mouth. Patient was started on Augmentin. CT of the neck was ordered which was unremarkable except showed mild/moderate bilateral temporomandibular joint arthrosis. Yesterday also had temperature spike. Still having headache ,whole front of the face was hurting and eyes were hurting. So came to the ER today. CT head was done which was negative. Bio fire was negative. Labs are okay. Procalcitonin was negative. ER tried for lumbar puncture but was unsuccessful and it was done by radiology. CSF protein was 49 all other CSF studies were negative so far. ER talked to the neurology and recommended MRI of of the head with contrast and also MRV which also came back unremarkable. Currently afebrile. Hemodynamics are okay. With pain medications the headache is better. Currently no runny nose or sore throat. Has dry cough. Denies chest pain or shortness of breath. Denies body ache. Appetite is okay. No abdominal pain. Normal bowel and bladder movements. Ambulating okay. Patient says there was a mice in her car engine and it was cleaned in March. Otherwise denies any exposure to any animals. Past medical history. As mentioned above Past surgical history. Dental surgery. Bilateral lens prosthesis. Knee arthroscopy. Social history. . No smoking. Alcohol 1-2 times a week. No drug use. Family history. Father had emphysema. Heart disease. Mother had osteoporosis. Son had testicular cancer. Discharge Exam Gen: A&O 3 NAD HEENT: NCAT, EOMI, not icteric. External ears normal. No rhinorrhea. Moist mucous membranes. Tenderness to palpation on right temporal frontal region of forehead, improved Neck: Supple, full range of motion, no observable masses, No meningeal sign. Lungs: No Respiratory distress. CV: RRR, no edema. Abdomen: Soft, nondistended, No rebound tenderness. MSK: No joint swelling, no redness. Skin: No rashes, petechiae, lesions. Normal color per patient. Neuro: Normal Gait, Grossly intact. Psych: Appropriate for situation. Updated Medication List Medication Instructions Recorded Confirmed Type albuterol sulfate 90 mcg/actuation 2 - 4 puff inhalation Q6H PRN 05/22/20 08/11/24 Rx aerosol inhaler Shortness Of Breath #6.7 grams ascorbate calcium (vitamin C) 500 500 mg PO QAM 06/20/20 08/11/24 History mg tablet cholecalciferol (vitamin D3) 25 25 mcg PO UD 06/20/20 08/11/24 History mcg (1,000 unit) capsule omega-3 fatty acids 1,000 mg 1,000 mg PO UD 06/20/20 08/11/24 History capsule (Fish Oil Concentrate) levothyroxine 50 mcg tablet 50 mcg PO QAM 01/07/23 08/11/24 History (Synthroid) aspirin 81 mg tablet,delayed 81 mg PO UD 12/13/23 08/11/24 History release oxycodone 5 mg tablet 5 mg PO UD PRN pain 08/11/24 08/11/24 History acetaminophen 500 mg tablet 1,000 mg (2 x 500 mg) PO Q8 PRN 08/14/24 Rx (Tylenol Extra Strength) pain #30 tabs meloxicam 7.5 mg tablet 7.5 mg PO DAILY PRN headache #14 08/14/24 Rx tabs prednisone 20 mg tablet 60 mg (3 x 20 mg) PO DAILY 14 days 08/14/24 Rx #42 tabs Hospital Stay Data Consultations 08/11/24 19:22 ED Decision to Admit Stat 08/12/24 08:00 Consult Infectious Diseases Routine Consult Neurology Routine 08/12/24 11:41 Consult General Surgery Routine 08/12/24 15:06 Consult Infectious Diseases Routine Procedures Performed Operation Date: 08/14/24 08:20 Actual Procedures p Right Temporal Artery Biopsy(Right) - Ian Resnedez DO Diagnostic Imagining Performed 08/11/24 12:48 CT head/brain wo con Stat 08/11/24 16:14 IR lumbar puncture diagnostic Stat 08/11/24 19:09 MR brain wo/w con Stat MR venography head wo con Stat 08/12/24 10:35 CTA head w con [CT angio head w con] Urgent CTA neck with con [CT angio neck with con] Urgent Pending Results Patient Have Any Pending Studies at Discharge: Yes Discharge Instructions Given to Patient (Per Discharging Provider) You have skin glue over your incisions called dermabond. you may shower with this on. It will tend to dissolve and fall off within a couple weeks. Do not pick at the skin glue Avoid sleeping on your right side over the next few days to avoid swelling. You may use ice if needed to help with pain/swelling over the area, alternating every 20 minutes on/20 minutes off. Use a barrier such as a towel between your skin and the ice for protection 1. Please take medications as prescribed. 2. Follow up with: PCP, neurology, rheumatology. 3. Please take prednisone until follow up with PCP and biopsy results taken. Total Time Total Time Spent Total Time Spent (In Minutes): I spent a total of 35 minutes in direct patient care, including [id number] time with the patient and/or family, reviewing medical records, ordering and reviewing diagnostic tests, and coordinating care with other healthcare providers. This time includes: history taking, physical examination, medical decision making, counseling, ECG interpretation, imaging interpretation, lab interpretation, orders, and education, excluding time spent in the performance of separately billed services.
[2024-08-14 15:02] VITALS: PULSE 91
[2024-08-15 15:23] LABS: Anti Nuclear Antibody Screen NEGATIVE (NEGATIVE)
[2024-08-15 16:02] LABS: Babesia microti DNA Not Detected (Not Detected)
[2024-08-16 17:47] LABS: Q Fever IgG, Phase I NEGATIVE; Q Fever Phase I IgM Antibody NEGATIVE; Q Fever Phase II IgG Antibody NEGATIVE; Q Fever Phase II IgM Antibody NEGATIVE; R. typhi IgG Ab NOT DETECTED; R. typhi IgM Ab NOT DETECTED; RMSF IgG Ab NOT DETECTED; RMSF IgM Ab NOT DETECTED
== END 2024-08-14 14:35 | disposition home or self-care (01) | DRG 515 ==
LOC: ED 12:31 → EDINP 22:01 → 2N 08-12 00:39